=== PATIENT | female | born 1950 | race Caucasian/White ===

== ENCOUNTER 2018-01-15 04:14 | Inpatient (IN) | payer MEDICARE ==
[2018-01-15] MEDS ORDERED: Ondansetron 4 MG/2 ML SDV IVPUSH ONE (04:25)
[2018-01-15] MEDS ORDERED: Morphine 2 MG/ML Syringe IVPUSH ONE ×4 (04:25→07:01)
--- NOTE | 2018-01-15 04:26 | EDM.PDOC ---
ED HPI GENERAL MEDICAL PROBLEM - General Chief Complaint: Lower Extremity Injury/Pain Stated Complaint: FELL AT HOME Time Seen by Provider: 01/15/18 04:24 - History of Present Illness INITIAL COMMENTS - FREE TEXT/NARRATIVE: HISTORY AND PHYSICAL: History of present illness: Patient 67-year-old female presents status post fall with acute left hip injury she denies any other trauma or concern she is brought by paramedics. Review of systems: As per history of present illness and below otherwise all systems reviewed and negative. Past medical history: As per history of present illness and as reviewed below otherwise noncontributory. Surgical history: As per history of present illness and as reviewed below otherwise noncontributory. Social history: No reported history of drug or alcohol abuse. Family history: As per history of present illness and as reviewed below otherwise noncontributory. Physical exam: HEENT: Atraumatic, normocephalic, pupils reactive, negative for conjunctival pallor or scleral icterus, mucous membranes moist, throat clear, neck supple, nontender, trachea midline. Lungs: Clear to auscultation, breath sounds equal bilaterally, chest nontender. Heart: S1S2, regular, negative for clicks, rubs, or JVD. Abdomen: Soft, nondistended, nontender. Negative for masses or hepatosplenomegaly. Negative for costovertebral tenderness. Pelvis: Stable nontender. Tenderness to palpation of her left hip no gross deformity noted Genitourinary: Deferred. Rectal: Deferred. Extremities: Atraumatic, negative for cords or calf pain. Neurovascular unremarkable. Neuro: Awake, alert, oriented. Cranial nerves II through XII unremarkable. Cerebellum unremarkable. Motor and sensory unremarkable throughout. Exam nonfocal. Diagnostics: CBC CMP troponin PT/INR chest x-ray EKG pelvis and left hip Therapeutics: IV monitor morphine sulfate 2 mg IV Zofran 4 mg IV Impression: #1 observation status post fall #2 acute left hip injury Definitive disposition and diagnosis as appropriate pending reevaluation and review of above. - Related Data Allergies Allergy/AdvReac Type Severity Reaction Status Date / Time acetaminophen [From Vicodin] Allergy Other Verified 01/15/18 04:26 hydrocodone [From Vicodin] Allergy Other Verified 01/15/18 04:26 propoxyphene [From Darvon] Allergy Other Verified 01/15/18 04:26 Review of Systems - Review of Systems Review Of Systems: ROS reveals no pertinent complaints other than HPI. ED EXAM, GENERAL - Physical Exam Exam: See Below (See dictation) Course - Vital Signs Last Recorded V/S: Last Vital Signs Temp 36.2 C 01/15/18 04:18 Pulse 83 01/15/18 04:18 Resp 24 H 01/15/18 04:18 BP 131/60 01/15/18 04:18 Pulse Ox 92 L 01/15/18 04:18 - Orders/Labs/Meds Orders: Active Orders 24 hr Category Date Time Status Cardiac Monitoring [RC] . DIRECTED Care 01/15/18 04:22 Active EKG Documentation Completion [RC] STAT Care 01/15/18 04:22 Active Chest 1V Frontal [CR] Stat Exams 01/15/18 04:22 Taken Hip Min 2V or 3V w Pelvis Lt [CR] Stat Exams 01/15/18 04:24 Taken Labs: Laboratory Tests 01/15/18 01/15/18 01/15/18 Range/Units 04:24 04:24 04:24 WBC 12.52 H (4.0-11.0) K/uL RBC 4.55 (4.30-5.90) M/uL Hgb 14.6 (12.0-16.0) g/dL Hct 43.4 (36.0-46.0) % MCV 95.4 (80.0-98.0) fL MCH 32.1 H (27.0-32.0) pg MCHC 33.6 (31.0-37.0) g/dL RDW Std Deviation 53.9 (28.0-62.0) fl RDW Coeff of Mallory 16 H (11.0-15.0) % Plt Count 326 (150-400) K/uL MPV 10.40 (7.40-12.00) fL Neut % (Auto) 78.5 (48.0-80.0) % Lymph % (Auto) 14.9 L (16.0-40.0) % [place] % (Auto) 5.8 (0.0-15.0) % Eos % (Auto) 0.3 (0.0-7.0) % Baso % (Auto) 0.5 (0.0-1.5) % Neut # (Auto) 9.8 H (1.4-5.7) K/uL Lymph # (Auto) 1.9 (0.6-2.4) K/uL [place] # (Auto) 0.7 (0.0-0.8) K/uL Eos # (Auto) 0.0 (0.0-0.7) K/uL Baso # (Auto) 0.1 (0.0-0.1) K/uL Nucleated RBC % 0.0 /100WBC Nucleated RBCs # 0 K/uL INR 0.96 Sodium 139 (136-145) mmol/L Potassium 4.1 (3.5-5.1) mmol/L Chloride 101 (98-107) mmol/L Carbon Dioxide 24.7 (21.0-32.0) mmol/L BUN 14 (7.0-18.0) mg/dL Creatinine 0.7 (0.6-1.0) mg/dL Est Cr Clr Drug Dosing 60.46 mL/min Estimated GFR (MDRD) > 60.0 ml/min Glucose 101 (74-106) mg/dL Calcium 8.1 L (8.5-10.1) mg/dL Total Bilirubin 0.4 (0.2-1.0) mg/dL AST 20 (15-37) IU/L ALT 22 (14-63) IU/L Alkaline Phosphatase 78 (46-116) U/L CK-MB (CK-2) 1.0 (0-3.6) ng/mL Troponin I < 0.050 (0.000-0.056) ng/mL Total Protein 7.1 (6.4-8.2) g/dL Albumin 3.5 (3.4-5.0) g/dL Globulin 3.6 H (2.0-3.5) g/dL Albumin/Globulin Ratio 1.0 L (1.3-2.8) Meds: Medications Discontinued Medications Generic Name Dose Route Start Last Admin Trade Name Carrollq PRN Reason Stop Dose Admin Morphine Sulfate 2 mg 01/15/18 04:25 01/15/18 04:35 Morphine IVPUSH 01/15/18 04:26 2 mg ONETIME ONE Administration Morphine Sulfate 2 mg 01/15/18 05:17 01/15/18 05:27 Morphine IVPUSH 01/15/18 05:18 2 mg ONETIME ONE Administration Morphine Sulfate 2 mg 01/15/18 06:23 01/15/18 06:28 Morphine IVPUSH 01/15/18 06:24 2 mg ONETIME ONE Administration Morphine Sulfate 2 mg 01/15/18 07:01 01/15/18 07:31 Morphine IVPUSH 01/15/18 07:02 2 mg ONETIME ONE Administration Ondansetron HCl 4 mg 01/15/18 04:25 01/15/18 04:36 Zofran IVPUSH 01/15/18 04:26 4 mg ONETIME ONE Administration Departure - Departure Time of Disposition: 07:41 Disposition: Admitted As Inpatient 68 Condition: Good Clinical Impression: Hip fracture - Discharge Information Forms: ED Department Discharge - My Orders Last 24 Hours: My Active Orders 01/15/18 04:22 Cardiac Monitoring [RC] . DIRECTED EKG Documentation Completion [RC] STAT Chest 1V Frontal [CR] Stat 01/15/18 04:24 Hip Min 2V or 3V w Pelvis Lt [CR] Stat - Assessment/Plan Last 24 Hours: My Active Orders 01/15/18 04:22 Cardiac Monitoring [RC] . DIRECTED EKG Documentation Completion [RC] STAT Chest 1V Frontal [CR] Stat 01/15/18 04:24 Hip Min 2V or 3V w Pelvis Lt [CR] Stat
[2018-01-15 05:21] LABS: CHLORIDE,CL 101 mmol/L (98-107); SODIUM,NA 139 mmol/L (136-145)
[2018-01-15] MEDS ORDERED: Sodium Chloride 0.9% 10 ML Syringe FLUSH PRN (08:10)
[2018-01-15] MEDS ORDERED: Sodium Chloride 0.9% 2.5 ML Syringe FLUSH PRN (08:10)
[2018-01-15] MEDS ORDERED: Lactated Ringers 1,000 ML IV SCH (08:15)
--- NOTE | 2018-01-15 10:08 | PCM.CONS ---
H&P History of Present Illness - General Date of Service: 01/15/18 Admit Problem/Dx: Admission Diagnosis/Problem Admission Diagnosis/Problem Hip fracture, intertrochanteric Source of Information: Patient, Provider History Limitations: Reports: No Limitations - History of Present Illness Initial Comments - Free Text/Narative: 67 y/o female who fell earlier this morning, injuring left hip. C/o immediate pain and inability to weight bear. Denies LOC or other injuries. No previous h/ o left hip pain. Evaluated in ER where XR show displaced left femoral neck fracture. Admitted for evaluation. Pain controlled with morphine. Denies distal paralysis, paresthesias. Onset of Symptoms: Reports: Today Location: Reports: Lower Extremity, Left Severity: Moderate Improves with: Reports: Rest Worsens with: Reports: Movement Context: Reports: Trauma Associated Symptoms: Reports: No Other Symptoms Left Leg Pain Score (Numeric/FACES): 7 - Related Data Allergies/Adverse Reactions: Allergies Allergy/AdvReac Type Severity Reaction Status Date / Time acetaminophen [From Vicodin] Allergy Other Verified 01/15/18 04:26 hydrocodone [From Vicodin] Allergy Other Verified 01/15/18 04:26 propoxyphene [From Darvon] Allergy Other Verified 01/15/18 04:26 Home Medications: Home Meds PARoxetine [Paxil] 20 mg PO DAILY 01/15/18 [History] Past Medical History HEENT History: Reports: None Cardiovascular History: Reports: None Respiratory History: Reports: None Gastrointestinal History: Reports: None Genitourinary History: Reports: None Musculoskeletal History: Reports: None Neurological History: Reports: None Psychiatric History: Reports: Addiction, Anxiety, Depression Endocrine/Metabolic History: Reports: Hypothyroidism Hematologic History: Reports: None Immunologic History: Reports: None Oncologic (Cancer) History: Reports: Ovarian Dermatologic History: Reports: None - Past Surgical History GI Surgical History: Reports: Other (See Below) (laparatomy) Female Surgical History: Reports: Hysterectomy, Salpingo-Oophorectomy Musculoskeletal Surgical History: Reports: ORIF (Right wrist) Social & Family History - Family History Family Medical History: Noncontributory - Tobacco Use Smoking Status *Q: Current Every Day Smoker Years of Tobacco use: 15 Packs/Tins Daily: 1 - Alcohol Use Alcohol Use History: Yes Days Per Week of Alcohol Use: 7 Number of Drinks Per Day: 5 Total Drinks Per Week: 35 H&P Review of Systems - Review of Systems: Review Of Systems: See Below General: Reports: No Symptoms HEENT: Reports: No Symptoms Pulmonary: Reports: No Symptoms Cardiovascular: Reports: No Symptoms Gastrointestinal: Reports: No Symptoms Genitourinary: Reports: No Symptoms Musculoskeletal: Reports: Joint Pain (left hip pain) Skin: Reports: No Symptoms Psychiatric: Reports: No Symptoms Neurological: Reports: No Symptoms Hematologic/Lymphatic: Reports: No Symptoms Immunologic: Reports: No Symptoms Exam - Exam Exam: See Below - Vital Signs Vital Signs: Last Vital Signs Temp 97.2 F 01/15/18 08:26 Pulse 74 01/15/18 08:26 Resp 17 01/15/18 08:26 BP 141/79 H 01/15/18 08:26 Pulse Ox 95 01/15/18 08:26 Weight: 58.967 kg - Exam General: Alert, Oriented, 4 HEENT: Conjunctiva Clear, Hearing Intact, Nares Patent Neck: Supple, Trachea Midline, 2 Lungs: Normal Respiratory Effort Cardiovascular: Regular Rate GI/Abdominal Exam: Soft Psychiatric: Alert, Normal Affect, Normal Mood Physical Exam Comments:: Exam of LLE shows it to be shortened and externally rotated. C/o extreme pain with movement. Skin intact. No TTP in knee or lower leg. AT/EHL/gastroc 5/5. Sensation intact. DP 2+. No calf TTP. - Patient Data Lab Results Last 24 hrs: Laboratory Results - last 24 hr 01/15/18 01/15/18 01/15/18 Range/Units 04:24 04:24 04:24 WBC 12.52 H (4.0-11.0) K/uL RBC 4.55 (4.30-5.90) M/uL Hgb 14.6 (12.0-16.0) g/dL Hct 43.4 (36.0-46.0) % MCV 95.4 (80.0-98.0) fL MCH 32.1 H (27.0-32.0) pg MCHC 33.6 (31.0-37.0) g/dL RDW Std Deviation 53.9 (28.0-62.0) fl RDW Coeff of Mallory 16 H (11.0-15.0) % Plt Count 326 (150-400) K/uL MPV 10.40 (7.40-12.00) fL Neut % (Auto) 78.5 (48.0-80.0) % Lymph % (Auto) 14.9 L (16.0-40.0) % [place] % (Auto) 5.8 (0.0-15.0) % Eos % (Auto) 0.3 (0.0-7.0) % Baso % (Auto) 0.5 (0.0-1.5) % Neut # (Auto) 9.8 H (1.4-5.7) K/uL Lymph # (Auto) 1.9 (0.6-2.4) K/uL [place] # (Auto) 0.7 (0.0-0.8) K/uL Eos # (Auto) 0.0 (0.0-0.7) K/uL Baso # (Auto) 0.1 (0.0-0.1) K/uL Nucleated RBC % 0.0 /100WBC Nucleated RBCs # 0 K/uL INR 0.96 Sodium 139 (136-145) mmol/L Potassium 4.1 (3.5-5.1) mmol/L Chloride 101 (98-107) mmol/L Carbon Dioxide 24.7 (21.0-32.0) mmol/L BUN 14 (7.0-18.0) mg/dL Creatinine 0.7 (0.6-1.0) mg/dL Est Cr Clr Drug Dosing 60.46 mL/min Estimated GFR (MDRD) > 60.0 ml/min Glucose 101 (74-106) mg/dL Calcium 8.1 L (8.5-10.1) mg/dL Total Bilirubin 0.4 (0.2-1.0) mg/dL AST 20 (15-37) IU/L ALT 22 (14-63) IU/L Alkaline Phosphatase 78 (46-116) U/L CK-MB (CK-2) 1.0 (0-3.6) ng/mL Troponin I < 0.050 (0.000-0.056) ng/mL Total Protein 7.1 (6.4-8.2) g/dL Albumin 3.5 (3.4-5.0) g/dL Globulin 3.6 H (2.0-3.5) g/dL Albumin/Globulin Ratio 1.0 L (1.3-2.8) Result Diagrams: 01/15/18 04:24 01/15/18 04:24 Consult PN Assessment/Plan (1) Hip fracture SNOMED Code(s): 969841723 Code(s): S72.009A - FRACTURE OF UNSP PART OF NECK OF UNSP FEMUR, INIT Current Visit: Yes Qualifiers: Encounter type: initial encounter Fracture type: closed Laterality: left Qualified Code(s): S72.002A - Fracture of unspecified part of neck of left femur, initial encounter for closed fracture Problem List Initiated/Reviewed/Updated: Yes My Orders Last 24 Hours: My Active Orders 01/15/18 08:08 Pelvis 1V or 2V [CR] Stat 01/15/18 08:10 Sodium Chloride 0.9% [Saline Flush] 10 ml FLUSH ASDIRECTED PRN Sodium Chloride 0.9% [Saline Flush] 2.5 ml FLUSH ASDIRECTED PRN Antiembolic Hose [OM.PC] Routine Obtain Home Medication List [OM.PC] Routine Peripheral IV Insertion Adult [OM.PC] Urgent Sequential Compression Device [OM.PC] Routine 01/15/18 08:12 Bedrest [RC] ASDIRECTED Urinary Catheter Assessment [RC] ASDIRECTED 01/15/18 08:15 Schmidt Catheter Insertion [Insert Urinary Catheter] [OM.PC] Q24H Lactated Ringers [Ringers, Lactated] 1,000 ml IV ASDIRECTED 01/15/18 09:31 TYPE AND SCREEN [BBK] Routine 01/15/18 12:00 ceFAZolin [Ancef] 1 gm Premix Bag 1 bag IV Q8H 01/15/18 Lunch Nothing per Oral Now Diet [DIET] Plan: Diagnosis discussed with patient. Discussed conservative and surgical treatment options. Recommend patient undergo L hip hemiarthroplasty. Procedure and postoperative course discussed. Risks of procedure include, but are not limited to, infection, n/v injury, dislocation, continued pain, need for revision surgery, blood clots, and anesthetic complications. Patient seems to understand and wishes to proceed. Will plan to do later today pending medical evaluation. Patient has no h/o blood clots, but states brother has h/o blood clots. Will need to be on DVT prophylaxis postoperatively.
--- NOTE | 2018-01-15 10:13 | PCM.PREANE ---
Preanesthetic Assessment - Anesthesia/Transfusion/Family Hx Anesthesia History: Prior Anesthesia Reaction (Pt states her last surgery in Sep 2017 was cancelled mid procedure due to hypoxia) Family History of Anesthesia Reaction: No Transfusion History: No Prior Transfusion(s) - Review of Systems General: No Symptoms Pulmonary: No Symptoms Cardiovascular: No Symptoms Gastrointestinal: No Symptoms Neurological: No Symptoms Other: Reports: None - Physical Assessment O2 Sat by Pulse Oximetry: 95 Respiratory Rate: 17 Vital Signs: Last Vital Signs Temp 97.2 F 01/15/18 08:26 Pulse 74 01/15/18 08:26 Resp 17 01/15/18 08:26 BP 141/79 H 01/15/18 08:26 Pulse Ox 95 01/15/18 08:26 Height: 5 ft 1 in Weight: 58.967 kg ASA Class: 3E Mental Status: Alert & Oriented x3 Airway Class: Mallampati = 2 Dentition: Reports: Normal Dentition Thyro-Mental Finger Breadths: 3 Mouth Opening Finger Breadths: 3 ROM/Head Extension: Full Lungs: Clear to Auscultation, Normal Respiratory Effort Cardiovascular: Regular Rate, Regular Rhythm - Lab Values: Laboratory Last Values WBC 12.52 K/uL (4.0-11.0) H 01/15/18 04:24 RBC 4.55 M/uL (4.30-5.90) 01/15/18 04:24 Hgb 14.6 g/dL (12.0-16.0) 01/15/18 04:24 Hct 43.4 % (36.0-46.0) 01/15/18 04:24 MCV 95.4 fL (80.0-98.0) 01/15/18 04:24 MCH 32.1 pg (27.0-32.0) H 01/15/18 04:24 MCHC 33.6 g/dL (31.0-37.0) 01/15/18 04:24 RDW Std Deviation 53.9 fl (28.0-62.0) 01/15/18 04:24 RDW Coeff of Mallory 16 % (11.0-15.0) H 01/15/18 04:24 Plt Count 326 K/uL (150-400) 01/15/18 04:24 MPV 10.40 fL (7.40-12.00) 01/15/18 04:24 Neut % (Auto) 78.5 % (48.0-80.0) 01/15/18 04:24 Lymph % (Auto) 14.9 % (16.0-40.0) L 01/15/18 04:24 [place] % (Auto) 5.8 % (0.0-15.0) 01/15/18 04:24 Eos % (Auto) 0.3 % (0.0-7.0) 01/15/18 04:24 Baso % (Auto) 0.5 % (0.0-1.5) 01/15/18 04:24 Neut # (Auto) 9.8 K/uL (1.4-5.7) H 01/15/18 04:24 Lymph # (Auto) 1.9 K/uL (0.6-2.4) 01/15/18 04:24 [place] # (Auto) 0.7 K/uL (0.0-0.8) 01/15/18 04:24 Eos # (Auto) 0.0 K/uL (0.0-0.7) 01/15/18 04:24 Baso # (Auto) 0.1 K/uL (0.0-0.1) 01/15/18 04:24 Nucleated RBC % 0.0 /100WBC 01/15/18 04:24 Nucleated RBCs # 0 K/uL 01/15/18 04:24 INR 0.96 01/15/18 04:24 Sodium 139 mmol/L (136-145) 01/15/18 04:24 Potassium 4.1 mmol/L (3.5-5.1) 01/15/18 04:24 Chloride 101 mmol/L (98-107) 01/15/18 04:24 Carbon Dioxide 24.7 mmol/L (21.0-32.0) 01/15/18 04:24 BUN 14 mg/dL (7.0-18.0) 01/15/18 04:24 Creatinine 0.7 mg/dL (0.6-1.0) 01/15/18 04:24 Est Cr Clr Drug Dosing 60.46 mL/min 01/15/18 04:24 Estimated GFR (MDRD) > 60.0 ml/min 01/15/18 04:24 Glucose 101 mg/dL (74-106) 01/15/18 04:24 Calcium 8.1 mg/dL (8.5-10.1) L 01/15/18 04:24 Total Bilirubin 0.4 mg/dL (0.2-1.0) 01/15/18 04:24 AST 20 IU/L (15-37) 01/15/18 04:24 ALT 22 IU/L (14-63) 01/15/18 04:24 Alkaline Phosphatase 78 U/L (46-116) 01/15/18 04:24 CK-MB (CK-2) 1.0 ng/mL (0-3.6) 01/15/18 04:24 Troponin I < 0.050 ng/mL (0.000-0.056) 01/15/18 04:24 Total Protein 7.1 g/dL (6.4-8.2) 01/15/18 04:24 Albumin 3.5 g/dL (3.4-5.0) 01/15/18 04:24 Globulin 3.6 g/dL (2.0-3.5) H 01/15/18 04:24 Albumin/Globulin Ratio 1.0 (1.3-2.8) L 01/15/18 04:24 - Allergies Allergies/Adverse Reactions: Allergies Allergy/AdvReac Type Severity Reaction Status Date / Time acetaminophen [From Vicodin] Allergy Other Verified 01/15/18 04:26 hydrocodone [From Vicodin] Allergy Other Verified 01/15/18 04:26 propoxyphene [From Darvon] Allergy Other Verified 01/15/18 04:26 - Anesthesia Plan Free Text/Narrative:: 01/15/18 - EKG - SR 01/15/18 - CXR - Cardiomegaly, Ovoid right retrocardiac density BNP Echo ordered, Dr Raymond to review. I reviewed the Echo with Dr Raymond. He felt by visual estimated EF was 50% with no significant valvular disease noted. I also reviewed the CXR with Dr Raymond and Dr Priscilla Pina. They both felt CT of chest with contrast would be beneficial to evaluate the retrocardiac density. I spoke with Pam ANDERSON who agreed and ordered the study. Following the CT of chest with contrast I spoke with Dr Pina who said he does not appreciate any masses on the scans. He believes the density may be from the enlarged Rt atrium, enlarged pulmonary blood vessels were also noted. I discussed all of the findings with the patient who expresses understanding. GETA was explained as well as the risks and benefits at this time. Pt expresses understanding and wishes to proceed at this time. - Acknowledgements Anesthesia Type Planned: General Anesthesia Pt an Appropriate Candidate for the Planned Anesthesia: Yes Alternatives and Risks of Anesthesia Discussed w Pt/Guardian: Yes Pt/Guardian Understands and Agrees with Anesthesia Plan: Yes PreAnesthesia Questionnaire HEENT History: Reports: None Cardiovascular History: Reports: None Respiratory History: Reports: COPD Gastrointestinal History: Reports: None Genitourinary History: Reports: None Musculoskeletal History: Reports: None Neurological History: Reports: None Psychiatric History: Reports: None Endocrine/Metabolic History: Reports: Hypothyroidism Hematologic History: Reports: None Immunologic History: Reports: None Oncologic (Cancer) History: Reports: None Dermatologic History: Reports: None - Infectious Disease History Infectious Disease History: Reports: None - Past Surgical History Musculoskeletal Surgical History: Reports: ORIF (Rt FA) Other Surgical History Comment: Laparotomy - History Comment History Comment: Pt has history of alcoholism (Current) and being homeless in the past. On exam the patient has noticable shakes from alcohol withdraw. - SUBSTANCE USE Smoking Status *Q: Current Every Day Smoker Days Per Week of Alcohol Use: 7 Number of Drinks Per Day: 5 Total Drinks Per Week: 35 - HOME MEDS Home Medications: Home Meds PARoxetine [Paxil] 20 mg PO DAILY 01/15/18 [History] - CURRENT (IN HOUSE) MEDS Current Meds: Current Medications Cefazolin Sodium/Dextrose 1 gm (/ Premix) 50 mls @ 100 mls/hr IV Q8H ONE Stop: 01/15/18 12:29 Lactated Ringer's (Ringers, Lactated) 1,000 mls @ 125 mls/hr IV ASDIRECTED TIMOTHY Last Admin: 01/15/18 09:15 Dose: 125 mls/hr Morphine Sulfate (Morphine) 2 mg IVPUSH Q2H PRN PRN Reason: pain Sodium Chloride (Saline Flush) 10 ml FLUSH ASDIRECTED PRN PRN Reason: Keep Vein Open Sodium Chloride (Saline Flush) 2.5 ml FLUSH ASDIRECTED PRN PRN Reason: Keep Vein Open Discontinued Medications Morphine Sulfate (Morphine) 2 mg IVPUSH ONETIME ONE Stop: 01/15/18 04:26 Last Admin: 01/15/18 04:35 Dose: 2 mg Morphine Sulfate (Morphine) 2 mg IVPUSH ONETIME ONE Stop: 01/15/18 05:18 Last Admin: 01/15/18 05:27 Dose: 2 mg Morphine Sulfate (Morphine) 2 mg IVPUSH ONETIME ONE Stop: 01/15/18 06:24 Last Admin: 01/15/18 06:28 Dose: 2 mg Morphine Sulfate (Morphine) 2 mg IVPUSH ONETIME ONE Stop: 01/15/18 07:02 Last Admin: 01/15/18 07:31 Dose: 2 mg Ondansetron HCl (Zofran) 4 mg IVPUSH ONETIME ONE Stop: 01/15/18 04:26 Last Admin: 01/15/18 04:36 Dose: 4 mg
--- NOTE | 2018-01-15 10:26 | PCM.HP ---
H&P History of Present Illness - General Date of Service: 01/15/18 Admit Problem/Dx: Admission Diagnosis/Problem Admission Diagnosis/Problem Hip fracture, intertrochanteric Source of Information: Patient History Limitations: Reports: No Limitations - History of Present Illness Initial Comments - Free Text/Narative: This 67 year old female with pmh of anxiety/depression and hypothyroidism, tobacco abuse and alcohol abuse presented to the ED after sustaining a fall last evening. She reports she was going doing the stairs and slipped on a stair with approximately 3-4 stairs left, landing on her butt and had instant pain to her L hip. She denies hitting her head or LOC. She denies being dizzy or lightheaded prior to falling. SHe reports she laid on the floor for maybe an hour than slowly crawled to the phone in the kitchen to call EMS. She reports feeling otherwise healthy up until falling. NO fevers, chest pain palpitations or shortness of breath. She does drink daily 3-5 drinks daily of wine and smokes 1 ppd for many years. She denies heart disease or HTN, no DM or COPD. Her last drink of alcohol was last evening around 8 pm. She reports she does have tremors when she wakes up daily and goes away when she takes her Paxil. Denies seizures. In the ED slightly leukocytosis noted, 12,520. BMP WNL. VS stable with BP 130- 140/60-70s. 95% on RA and HR 70-90s. L hip xray revealed L femoral neck fracture. CXR obtained as well which revealed cardiomegaly with right retrocardiac density. She again denies history of cardiac health issues, but reports having a surgery in September where she reports they had to cancel due to dropping oxygen saturations. Orthopedics consulted for L femoral neck fracture. Patient admitted to hospitalist team. She reports she is here in [place], clearing out her father's house. He recently . She and her brothers do not live here. She lives in the [place] area and is homeless. She ultimately plans to return to [place] when she is able and the house is sold. Left Leg Pain Score (Numeric/FACES): 7 - Related Data Allergies/Adverse Reactions: Allergies Allergy/AdvReac Type Severity Reaction Status Date / Time acetaminophen [From Vicodin] Allergy Other Verified 01/15/18 04:26 hydrocodone [From Vicodin] Allergy Other Verified 01/15/18 04:26 propoxyphene [From Darvon] Allergy Other Verified 01/15/18 04:26 Home Medications: Home Meds PARoxetine [Paxil] 20 mg PO DAILY 01/15/18 [History] Past Medical History HEENT History: Reports: None Cardiovascular History: Reports: None. Denies: Afib, Blood Clots/VTE/DVT, CAD, High Cholesterol, Hypertension, AR Respiratory History: Reports: None. Denies: Asthma, COPD, PE Gastrointestinal History: Reports: None. Denies: GERD, GI Bleed Genitourinary History: Reports: None. Denies: Chronic Renal Insuffiency Musculoskeletal History: Reports: None Neurological History: Reports: None. Denies: CVA, TIA Psychiatric History: Reports: Addiction, Anxiety, Depression Endocrine/Metabolic History: Reports: Hypothyroidism. Denies: Diabetes, Type II Hematologic History: Reports: None. Denies: Anesthesia Reaction Immunologic History: Reports: None Oncologic (Cancer) History: Reports: None, Cervix (and endometrial) Dermatologic History: Reports: None - Infectious Disease History Infectious Disease History: Reports: None - Past Surgical History Female Surgical History: Reports: Hysterectomy, Salpingo-Oophorectomy Musculoskeletal Surgical History: Reports: ORIF (R wrist) Other Surgical History Comment: Laparotomy Social & Family History - Family History Family Medical History: Noncontributory Cardiac: Reports: Other (See Below) (Son has severe valvular disease and needs heart transplant, not sure exact diagnoses reports he is terminal) Respiratory: Reports: PE (brother had PE, due to Ca.) - Tobacco Use Smoking Status *Q: Current Every Day Smoker Years of Tobacco use: 15 Packs/Tins Daily: 1 Smoking Cessation Information Provided To Patient: Yes - Alcohol Use Alcohol Use History: Yes Days Per Week of Alcohol Use: 7 Number of Drinks Per Day: 5 Total Drinks Per Week: 35 Alcohol Use Frequency: Daily - Recreational Drug Use Recreational Drug Use: No Drug Use in Last 12 Months: No - Living Situation & Occupation Living situation: Reports: Single Occupation: Unemployed Social History Comment: Homeless, currently staying at her father's house. H&P Review of Systems - Review of Systems: Review Of Systems: See Below General: Reports: No Symptoms. Denies: Fever, Chills, Malaise, Weakness, Fatigue HEENT: Reports: No Symptoms. Denies: Headaches, Sinus Congestion, Vertigo, Visual Changes Pulmonary: Reports: No Symptoms. Denies: Shortness of Breath, Wheezing, Cough, Sputum Cardiovascular: Reports: No Symptoms. Denies: Chest Pain, Palpitations, Edema, Lightheadedness, Syncope Gastrointestinal: Reports: No Symptoms. Denies: Abdominal Pain, Black Stool, Bloody Stool, Nausea, Vomiting Genitourinary: Reports: No Symptoms. Denies: Dysuria, Frequency, Burning Musculoskeletal: Reports: Joint Pain (L hip pain and muscle spasms) Skin: Reports: No Symptoms. Denies: Rash, Wound Psychiatric: Reports: No Symptoms. Denies: Confusion Neurological: Reports: Tremors (when waking up in am and then they go away) Hematologic/Lymphatic: Reports: No Symptoms Immunologic: Reports: No Symptoms Exam - Exam Exam: See Below - Vital Signs Vital Signs: Last Vital Signs Temp 97.2 F 01/15/18 08:26 Pulse 74 01/15/18 08:26 Resp 17 01/15/18 10:19 BP 141/79 H 01/15/18 08:26 Pulse Ox 95 01/15/18 10:19 Weight: 58.967 kg - Exam Quality Assessment: Supplemental Oxygen, DVT Prophylaxis (SCDs) General: Alert, Oriented, Cooperative, Mild Distress HEENT: Conjunctiva Clear, Mucosa Moist & Ages, Normal Nasal Septum, Posterior Pharynx Clear Neck: Supple, Trachea Midline, +2 Carotid Pulse wo Bruit. No: Lymphadenopathy, JVD Lungs: Normal Respiratory Effort, Rhonchi (cleras with cough) Cardiovascular: Regular Rate, Regular Rhythm, Normal S1, Normal S2. No: Systolic Murmur GI/Abdominal Exam: Normal Bowel Sounds, Soft, Non-Tender, No Organomegaly, No Distention, No Abnormal Bruit, No Mass, Pelvis Stable Extremities: Normal Inspection, No Pedal Edema, Normal Capillary Refill. No: Normal Range of Motion Skin: Warm, Dry, Other (bruising noted to bilateral forearms and elbows. appear to be fairly recent Denies recent history of falling besides last night.) Neurological: Cranial Nerves Intact Neuro Extensive - Mental Status: Alert, Oriented x3, Normal Mood/Affect Neuro Extensive - Motor, Sensory, Reflexes: CN II-XII Intact - Patient Data Lab Results Last 24 hrs: Laboratory Results - last 24 hr 01/15/18 01/15/18 01/15/18 Range/Units 04:24 04:24 04:24 WBC 12.52 H (4.0-11.0) K/uL RBC 4.55 (4.30-5.90) M/uL Hgb 14.6 (12.0-16.0) g/dL Hct 43.4 (36.0-46.0) % MCV 95.4 (80.0-98.0) fL MCH 32.1 H (27.0-32.0) pg MCHC 33.6 (31.0-37.0) g/dL RDW Std Deviation 53.9 (28.0-62.0) fl RDW Coeff of Mallory 16 H (11.0-15.0) % Plt Count 326 (150-400) K/uL MPV 10.40 (7.40-12.00) fL Neut % (Auto) 78.5 (48.0-80.0) % Lymph % (Auto) 14.9 L (16.0-40.0) % Bucks % (Auto) 5.8 (0.0-15.0) % Eos % (Auto) 0.3 (0.0-7.0) % Baso % (Auto) 0.5 (0.0-1.5) % Neut # (Auto) 9.8 H (1.4-5.7) K/uL Lymph # (Auto) 1.9 (0.6-2.4) K/uL Bucks # (Auto) 0.7 (0.0-0.8) K/uL Eos # (Auto) 0.0 (0.0-0.7) K/uL Baso # (Auto) 0.1 (0.0-0.1) K/uL Nucleated RBC % 0.0 /100WBC Nucleated RBCs # 0 K/uL INR 0.96 Sodium 139 (136-145) mmol/L Potassium 4.1 (3.5-5.1) mmol/L Chloride 101 (98-107) mmol/L Carbon Dioxide 24.7 (21.0-32.0) mmol/L BUN 14 (7.0-18.0) mg/dL Creatinine 0.7 (0.6-1.0) mg/dL Est Cr Clr Drug Dosing 60.46 mL/min Estimated GFR (MDRD) > 60.0 ml/min Glucose 101 (74-106) mg/dL Calcium 8.1 L (8.5-10.1) mg/dL Total Bilirubin 0.4 (0.2-1.0) mg/dL AST 20 (15-37) IU/L ALT 22 (14-63) IU/L Alkaline Phosphatase 78 (46-116) U/L CK-MB (CK-2) 1.0 (0-3.6) ng/mL Troponin I < 0.050 (0.000-0.056) ng/mL Total Protein 7.1 (6.4-8.2) g/dL Albumin 3.5 (3.4-5.0) g/dL Globulin 3.6 H (2.0-3.5) g/dL Albumin/Globulin Ratio 1.0 L (1.3-2.8) Result Diagrams: 01/15/18 04:24 01/15/18 04:24 EKG INTERPRETATION EKG Date: 01/15/18 Rhythm: NSR P-Wave: Present QRS: Normal ST-T: Normal QT: Normal Comparison: NA - No Prior EKG *Q Meaningful Use (ADM) - VTE Risk Assess *Q Each Risk Factor Represents 1 Point: Abnormal Pulmonary Function (COPD) Total Score 1 Point Risk Factors: 1 Each Risk Factor Represents 2 Points: Age 60 - 74 Years Total Score 2 Point Risk Factors: 2 Each Risk Factor Represents 3 Points: None Total Score 3 Point Risk Factors: 0 Each Risk Factor Represents 5 Points: Hip, Pelvis or Leg Fracture, Less than 1 month Total Score 5 Point Risk Factors: 5 Venous Thromboembolism Risk Factor Score *Q: 8 - Problem List (1) Femoral neck fracture SNOMED Code(s): 3980436 ICD Code: S72.009A - FRACTURE OF UNSP PART OF NECK OF UNSP FEMUR, INIT Status: Acute Current Visit: Yes Qualifiers: Encounter type: initial encounter Fracture type: closed Laterality: left Qualified Code(s): S72.002A - Fracture of unspecified part of neck of left femur, initial encounter for closed fracture (2) Cardiomegaly SNOMED Code(s): 3902338 ICD Code: I51.7 - CARDIOMEGALY Status: Acute Current Visit: Yes (3) Tobacco abuse SNOMED Code(s): 880144933 ICD Code: Z72.0 - TOBACCO USE Status: Chronic Current Visit: Yes (4) Alcohol abuse SNOMED Code(s): 22343958 ICD Code: F10.10 - ALCOHOL ABUSE, UNCOMPLICATED Status: Chronic Current Visit: Yes (5) Depression SNOMED Code(s): 05381849 ICD Code: F32.9 - MAJOR DEPRESSIVE DISORDER, SINGLE EPISODE, UNSPECIFIED Status: Chronic Current Visit: Yes (6) Anxiety SNOMED Code(s): 78640699 ICD Code: F41.9 - ANXIETY DISORDER, UNSPECIFIED Status: Chronic Current Visit: Yes (7) Hypothyroid SNOMED Code(s): 62818126 ICD Code: E03.9 - HYPOTHYROIDISM, UNSPECIFIED Status: Chronic Current Visit: Yes (8) Homeless single person SNOMED Code(s): 791504471 ICD Code: Z59.0 - HOMELESSNESS Status: Chronic Current Visit: Yes Problem List Initiated/Reviewed/Updated: Yes Orders Last 24hrs: Active Orders 24 hr Category Date Time Status Patient Status [ADT] Stat ADT 01/15/18 07:42 Active Bedrest [RC] ASDIRECTED Care 01/15/18 08:12 Active Cardiac Monitoring [RC] . DIRECTED Care 01/15/18 04:22 Active EKG Documentation Completion [RC] STAT Care 01/15/18 04:22 Active Schmidt Catheter Insertion [Insert Urinary Catheter] [OM. Care 01/15/18 08:15 Ordered PC] Q24H Urinary Catheter Assessment [RC] ASDIRECTED Care 01/15/18 08:12 Active Nothing per Oral Now Diet [DIET] Diet 01/15/18 Lunch Active Chest 1V Frontal [CR] Stat Exams 01/15/18 04:22 Taken Hip Min 2V or 3V w Pelvis Lt [CR] Stat Exams 01/15/18 04:24 Taken Pelvis 1V or 2V [CR] Stat Exams 01/15/18 08:08 Taken TYPE AND SCREEN [BBK] Routine Lab 01/15/18 09:31 Received Lactated Ringers [Ringers, Lactated] 1,000 ml Med 01/15/18 08:15 Active IV ASDIRECTED Morphine Med 01/15/18 09:44 Active 2 mg IVPUSH Q2H PRN Sodium Chloride 0.9% [Saline Flush] Med 01/15/18 08:10 Active 10 ml FLUSH ASDIRECTED PRN Sodium Chloride 0.9% [Saline Flush] Med 01/15/18 08:10 Active 2.5 ml FLUSH ASDIRECTED PRN ceFAZolin [Ancef] 1 gm Med 01/15/18 12:00 Active Premix Bag 1 bag IV Q8H Antiembolic Hose [OM.PC] Routine Oth 01/15/18 08:10 Ordered Obtain Home Medication List [OM.PC] Routine Oth 01/15/18 08:10 Ordered Peripheral IV Insertion Adult [OM.PC] Urgent Oth 01/15/18 08:10 Ordered Sequential Compression Device [OM.PC] Routine Oth 01/15/18 08:10 Ordered Medication Orders Cefazolin Sodium/Dextrose 1 gm (/ Premix) 50 mls @ 100 mls/hr IV Q8H ONE Stop: 01/15/18 12:29 Lactated Ringer's (Ringers, Lactated) 1,000 mls @ 125 mls/hr IV ASDIRECTED TIMOTHY Last Admin: 01/15/18 09:15 Dose: 125 mls/hr Morphine Sulfate (Morphine) 2 mg IVPUSH Q2H PRN PRN Reason: pain Sodium Chloride (Saline Flush) 10 ml FLUSH ASDIRECTED PRN PRN Reason: Keep Vein Open Sodium Chloride (Saline Flush) 2.5 ml FLUSH ASDIRECTED PRN PRN Reason: Keep Vein Open Assessment/Plan Comment:: This 67 year old female admitted with L femoral neck fracture 1. Femoral neck fracture: Dr Cotto, Orthopedics consulted. Plans of Hemiarthoplasty this afternoon. 2. Cardiomegaly: Denies hx of cardiac issues. Anesthesia consulted Dr Mackey. ECHO ordered. Monitor fluid status closely 3. Alcohol abuse: Will place on CIWAA protocol with Ativan protocol. Supplement with Thiamine and Folic Acid daily. 4. Depression/Anxiety: Continue Paxil. VTE prophylaxis: Will recommend post-operatively.
[2018-01-15] MEDS: Morphine 2 MG/ML Syringe IVPUSH PRN ×2 (11:00→13:05)
[2018-01-15] MEDS ORDERED: Ondansetron 4 MG/2 ML SDV IVPUSH PRN (11:44)
[2018-01-15] MEDS ORDERED: ceFAZolin 1 GM in Premix Bag 1 BAG IV ONE (12:00)
[2018-01-15] MEDS: Lactated Ringers 1,000 ML IV SCH (12:30)
--- NOTE | 2018-01-15 13:35 | PCM.PRNOTE ---
- Free Text/Narrative Note: Prelim echo 01/15/2018 suboptimal study, LVEF grossly preserved, I did not appreciate significant valvular abnormalities. RV systolic function appeared to be preserved.
[2018-01-15] MEDS ORDERED: Iopamidol 755 MG/ML 500 ML Multipack Bottle IVPUSH STA (14:50)
[2018-01-15] MEDS ORDERED: Midazolam 1 MG/ML 2 ML SDV ONE (15:19)
[2018-01-15] MEDS ORDERED: Succinylcholine 200 MG/10 ML MDV ONE (15:19)
[2018-01-15] MEDS ORDERED: fentaNYL 250 MCG/5 ML SDV ONE (15:19)
[2018-01-15] MEDS ORDERED: Propofol 200 MG/20 ML SDV ONE (15:19)
[2018-01-15] MEDS ORDERED: Lidocaine 2% 5 ML SDV ONE (15:19)
[2018-01-15] MEDS ORDERED: Rocuronium 10 MG/ML 10 ML Syringe ONE (15:19)
[2018-01-15] MEDS ORDERED: Ondansetron 4 MG/2 ML SDV ONE (15:19)
--- NOTE | 2018-01-15 15:35 | PCM.OPNOTE ---
- General Post-Op/Procedure Note Date of Surgery/Procedure: 01/15/18 Operative Procedure(s): L hip hemiarthroplasty Post-Op Diagnosis: L displaced femoral neck fracture Anesthesia Technique: General ET Tube Primary Surgeon: Julita Cotto Stick Feeder: Karen Mitchell in mLs: 300 Condition: Stable Free Text/Narrative:: #[id number]
[2018-01-15] MEDS ORDERED: LORazepam 2 MG/ML SDV IVPUSH PRN (15:45)
--- NOTE | 2018-01-15 16:06 | CONS ---
DATE OF CONSULTATION: 01/15/2018 DATE OF : 1950 PRIMARY CARE PHYSICIAN: None PCP HISTORY OF PRESENT ILLNESS: This is a 67-year-old female with history of anxiety, depression, hypothyroidism, chronic smoking, alcoholic abuse. She does not live here in [place]. She lives in [place], [place], and homeless. She was here just for clearing the house for her dad who . However, she reports she was going upstairs and just trips on the stairs, and she was falling on her buttock and has instant pain in the left hip. Denied head trauma, loss of consciousness, or feeling dizzy. Denies chest pain or shortness of breath. She has not seen a doctor for a long time. She also denies history of hypertension, diabetes, COPD. The x-ray of left hip, which show left femoral neck fracture, and orthopedic surgeon was consulted. Plan to do urgent hip surgery due to the left hip fracture and the chest x-ray was obtained which showed possible cardiomegaly and also possible retrocardiac density, and that was the reason she was consulted to me as well as to review echo images. The echocardiogram was done already. SOCIAL HISTORY: She has a history of current smoking as well as she has current alcoholic abuse. No drug use. FAMILY HISTORY: Denies family history of hypertension or CAD. ALLERGIES: She is allergic to acetaminophen, hydrocodone, propoxyphene. PAST MEDICAL HISTORY: She denies history of atrial fibrillation, blood clot, DVT, CAD, high cholesterol, hypertension, diabetes, COPD. PAST SURGICAL HISTORY: She was supposed to have a surgery in last September; however, she driving her sadness, so she aborted, and detail was not available due to the records from outside hospital. PHYSICAL EXAMINATION: VITAL SIGNS: Initial blood pressure is 131/60, heart rate of 60 to 90, temperature is 36.2, O2 saturation 92% to 95% on room air. DIAGNOSTIC DATA: Echocardiogram is a suboptimal study. It showed preserved ejection fraction grossly. I did not appreciate any significant valvular abnormalities. EKG is pending. ASSESSMENT AND PLAN: This is a 67-year-old female with history of smoking, as well as hypothyroidism, and alcoholic abuse. She was seen in the hospital after the fall, sustaining the left hip fracture with a femoral fracture, and she is required to have an urgent surgery. She is possibly low to intermediate risk due to the risk factor of having smoking; however, due to in nature of the surgery is her urgent and the risks of waiting or completing the tests before the surgery is higher than going for the surgery and the surgery seems to be urgent. The risk from the surgery is still there and apparently echocardiogram grossly did not show any LV systolic dysfunction or significant valvular abnormalities. However, this study was suboptimal and also the CT of the chest is pending to evaluate the retrocardiac density. I would like to do an EKG stat to make sure there are no significant EKG abnormalities. GONZALEZ / LANA /[id number]
[2018-01-15] MEDS ORDERED: ePHEDrine 50 MG/ML SDV ONE (16:08)
[2018-01-15] MEDS ORDERED: Ipratropium 12.9 GM Inhaler ONE (16:10)
[2018-01-15] MEDS ORDERED: Albuterol 6.7 GM Inhaler INH ONE (16:10)
[2018-01-15] MEDS ORDERED: Albuterol/Ipratropium 3.0-0.5 MG/3 ML Neb Soln NEB ONE (16:26)
[2018-01-15] MEDS ORDERED: Glycopyrrolate 0.2 MG/ML SDV ONE (16:35)
[2018-01-15] MEDS ORDERED: Neostigmine Methylsulfate 1 MG/ML 5 ML Syringe ONE (16:35)
[2018-01-15] MEDS ORDERED: Sugammadex Sodium 200 MG/2 ML VIAL ONE (16:40)
[2018-01-15] MEDS ORDERED: fentaNYL 100 MCG/2 ML SDV ONE (16:48)
[2018-01-15] MEDS ORDERED: HYDROmorphone/Normal Saline 6 MG/30 ML PCA Vial IV PRN (17:00)
[2018-01-15] MEDS ORDERED: fentaNYL 100 MCG/2 ML SDV IVPUSH PRN (18:22)
--- NOTE | 2018-01-15 19:13 | PCM.POSTAN ---
POST ANESTHESIA ASSESSMENT - MENTAL STATUS Mental Status: Alert, Oriented - VITAL SIGNS Pulse Rate: 98 SaO2: 92 Resp Rate: 14 Blood Pressure: 158/68 - RESPIRATORY Respiratory Status: Respiratory Rate WNL, Airway Patent, O2 Saturation Stable - CARDIOVASCULAR CV Status: Pulse Rate WNL, Blood Pressure Stable - GASTROINTESTINAL GI Status: No Symptoms - PAIN Pain Score: 2 - POST OP HYDRATION Hydration Status: Adequate & Stable - OBSERVATIONS Free Text/Narrative:: Pt was initially on BiPAP 14/7 FiO2 100% with SpO2 of 95%. When the patient woke up she was able to cough up quite a bit of secretions, coarseness throughout all lung loza still remains. Duo-Neb was given without much improvement. Currently she is on Simple mask at 10 LPM with SpO2 95%. Pt responds to voice. Continuous pulse oximetry was ordered by Dr Cotto.
[2018-01-15] MEDS: ceFAZolin 1 GM in Premix Bag 1 BAG IV SCH (21:02)
[2018-01-16] MEDS: Lactated Ringers 1,000 ML IV SCH (01:27)
[2018-01-16] MEDS: ceFAZolin 1 GM in Premix Bag 1 BAG IV SCH ×2 (04:21→12:51)
[2018-01-16 06:30] LABS: CHLORIDE,CL 99 mmol/L (98-107); SODIUM,NA 132 mmol/L (136-145)
[2018-01-16] MEDS ORDERED: Magnesium Sulfate/Water 2 GM in Premix Bag 1 BAG IV ONE (07:34)
--- NOTE | 2018-01-16 07:55 | PCM48HPAN ---
Post Anesthesia Note - EVALUATION WITHIN 48HRS OF ANESTHETIC Vital Signs in Normal Range: Yes Patient Participated in Evaluation: Yes Respiratory Function Stable: Yes Airway Patent: Yes Cardiovascular Function Stable: Yes Hydration Status Stable: Yes Pain Control Satisfactory: Yes Nausea and Vomiting Control Satisfactory: Yes Mental Status Recovered: Yes Pulse Rate: 98 Resp Rate: 16 Blood Pressure: 158/68
[2018-01-16] MEDS: PARoxetine 20 MG Tab PO SCH (08:09)
[2018-01-16] MEDS: Thiamine 200 MG/2 ML MDV IV SCH (08:09)
[2018-01-16] MEDS: Folic Acid 50 MG/10 ML MDV SUBCUT SCH (08:10)
--- NOTE | 2018-01-16 08:54 | PCM.PN ---
- General Info Date of Service: 01/16/18 Admission Dx/Problem (Free Text): Admission Diagnosis/Problem Admission Diagnosis/Problem Hip fracture, intertrochanteric Subjective Update: Feeling good this morning. Pain well controlled to L hip. Coughing up clear to yellow phlegm. Feels a sore throat. No chest pain or SOB. No abdominal pain. Nervous about moving today with hip precautions. Discussed PT will help her with this and guide her the correct movements Functional Status: Reports: Pain Controlled, Tolerating Diet, Urinating - Review of Systems General: Reports: Fatigue ("I didnt sleep well last night"). Denies: Fever, Weakness, Malaise HEENT: Reports: Sore Throat. Denies: Headaches, Visual Changes Pulmonary: Reports: Cough, Sputum (clera to yellow.). Denies: Shortness of Breath, Hemoptysis Cardiovascular: Reports: No Symptoms. Denies: Chest Pain, Dyspnea on Exertion, Edema Gastrointestinal: Reports: No Symptoms. Denies: Abdominal Pain, Flatus, Nausea , Vomiting Genitourinary: Reports: No Symptoms. Denies: Dysuria, Frequency, Burning Musculoskeletal: Reports: Joint Pain (L hip pain, but this is well controlled with BIT TAPPER) Neurological: Reports: Tremors (" I feel pretty shaky this morning.") Psychiatric: Reports: No Symptoms - Patient Data Vitals - Most Recent: Last Vital Signs Temp 97.2 F 01/16/18 04:00 Pulse 98 01/16/18 07:55 Resp 16 01/16/18 07:55 BP 158/68 H 01/16/18 07:55 Pulse Ox 96 01/16/18 04:00 Weight - Most Recent: 60.2 kg I&O - Last 24 Hours: Intake & Output 01/15/18 01/16/18 01/16/18 22:59 06:59 14:59 Intake Total 1950 3199 Output Total 300 375 Balance 1650 2824 Lab Results Last 24 Hours: Laboratory Results - last 24 hr 01/15/18 01/15/18 01/15/18 Range/Units 04:29 09:31 14:00 WBC (4.0-11.0) K/uL RBC (4.30-5.90) M/uL Hgb (12.0-16.0) g/dL Hct (36.0-46.0) % MCV (80.0-98.0) fL MCH (27.0-32.0) pg MCHC (31.0-37.0) g/dL RDW Std Deviation (28.0-62.0) fl RDW Coeff of [place]ory (11.0-15.0) % Plt Count (150-400) K/uL MPV (7.40-12.00) fL Neut % (Auto) (48.0-80.0) % Lymph % (Auto) (16.0-40.0) % [place] % (Auto) (0.0-15.0) % Eos % (Auto) (0.0-7.0) % Baso % (Auto) (0.0-1.5) % Neut # (Auto) (1.4-5.7) K/uL Lymph # (Auto) (0.6-2.4) K/uL [place] # (Auto) (0.0-0.8) K/uL Eos # (Auto) (0.0-0.7) K/uL Baso # (Auto) (0.0-0.1) K/uL Nucleated RBC % /100WBC Nucleated RBCs # K/uL Sodium (136-145) mmol/L Potassium (3.5-5.1) mmol/L Chloride (98-107) mmol/L Carbon Dioxide (21.0-32.0) mmol/L BUN (7.0-18.0) mg/dL Creatinine (0.6-1.0) mg/dL Est Cr Clr Drug Dosing mL/min Estimated GFR (MDRD) ml/min Glucose (74-106) mg/dL POC Glucose (60-110) mg/dL Calcium (8.5-10.1) mg/dL Phosphorus (2.6-4.7) mg/dL Magnesium (1.8-2.4) mg/dL B-Natriuretic Peptide < 15 (<100) PG/ML Urine Color YELLOW Urine Appearance CLEAR Urine pH 5.5 (5.0-8.0) Ur Specific [place] >= 1.030 (1.001-1.035) Urine Protein TRACE (NEGATIVE) mg/dL Urine Glucose (UA) NEGATIVE (NEGATIVE) mg/dL Urine Ketones TRACE H (NEGATIVE) mg/dL Urine Occult Blood LARGE H (NEGATIVE) Urine Nitrite NEGATIVE (NEGATIVE) Urine Bilirubin NEGATIVE (NEGATIVE) Urine Urobilinogen 0.2 (<2.0) EU/dL Ur Leukocyte Esterase NEGATIVE (NEGATIVE) Blood Type A POSITIVE Antibody Screen NEGATIVE 01/15/18 01/16/18 01/16/18 Range/Units 22:56 06:03 06:03 WBC 8.68 (4.0-11.0) K/uL RBC 3.36 L (4.30-5.90) M/uL Hgb 10.3 L (12.0-16.0) g/dL Hct 32.8 L (36.0-46.0) % MCV 97.6 (80.0-98.0) fL MCH 30.7 (27.0-32.0) pg MCHC 31.4 (31.0-37.0) g/dL RDW Std Deviation 55.1 (28.0-62.0) fl RDW Coeff of [place]ory 16 H (11.0-15.0) % Plt Count 208 (150-400) K/uL MPV 10.40 (7.40-12.00) fL Neut % (Auto) 76.3 (48.0-80.0) % Lymph % (Auto) 12.7 L (16.0-40.0) % [place] % (Auto) 9.7 (0.0-15.0) % Eos % (Auto) 0.8 (0.0-7.0) % Baso % (Auto) 0.5 (0.0-1.5) % Neut # (Auto) 6.6 H (1.4-5.7) K/uL Lymph # (Auto) 1.1 (0.6-2.4) K/uL [place] # (Auto) 0.8 (0.0-0.8) K/uL Eos # (Auto) 0.1 (0.0-0.7) K/uL Baso # (Auto) 0.0 (0.0-0.1) K/uL Nucleated RBC % 0.2 /100WBC Nucleated RBCs # 0 K/uL Sodium 132 L (136-145) mmol/L Potassium 4.3 (3.5-5.1) mmol/L Chloride 99 (98-107) mmol/L Carbon Dioxide 27.8 (21.0-32.0) mmol/L BUN 9 (7.0-18.0) mg/dL Creatinine 0.7 (0.6-1.0) mg/dL Est Cr Clr Drug Dosing 60.46 mL/min Estimated GFR (MDRD) > 60.0 ml/min Glucose 131 H (74-106) mg/dL POC Glucose 111 H (60-110) mg/dL Calcium 7.5 L (8.5-10.1) mg/dL Phosphorus 3.0 (2.6-4.7) mg/dL Magnesium 1.6 L (1.8-2.4) mg/dL B-Natriuretic Peptide (<100) PG/ML Urine Color Urine Appearance Urine pH (5.0-8.0) Ur Specific [place] (1.001-1.035) Urine Protein (NEGATIVE) mg/dL Urine Glucose (UA) (NEGATIVE) mg/dL Urine Ketones (NEGATIVE) mg/dL Urine Occult Blood (NEGATIVE) Urine Nitrite (NEGATIVE) Urine Bilirubin (NEGATIVE) Urine Urobilinogen (<2.0) EU/dL Ur Leukocyte Esterase (NEGATIVE) Blood Type Antibody Screen Med Orders - Current: Current Medications Enoxaparin Sodium (Lovenox) 40 mg SUBCUT Q24H [facility] Fentanyl (Sublimaze) 50 mcg IVPUSH Q5M PRN PRN Reason: Pain (severe 7-10) Stop: 01/16/18 18:22 Folic Acid (Folic Acid) 1 mg SUBCUT DAILY [facility] Last Admin: 01/16/18 08:10 Dose: 1 mg Hydromorphone HCl (Dilaudid Shank Cementer Hand 6 Mg In Ns 30 Ml) 0 mg IV ASDIRECTED PRN; Protocol PRN Reason: Pain Last Admin: 01/15/18 18:32 Dose: 6 mg Cefazolin Sodium/Dextrose 1 gm (/ Premix) 50 mls @ 100 mls/hr IV Q8H [facility] Stop: 01/16/18 13:29 Last Admin: 01/16/18 04:21 Dose: 100 mls/hr Lorazepam (Ativan) 0 mg IVPUSH Q4H PRN; Protocol PRN Reason: CIWAA Ondansetron HCl (Zofran) 4 mg IVPUSH Q4H PRN PRN Reason: Nausea Oxycodone/Acetaminophen (Percocet 325-5 Mg) 1 - 2 tab PO Q4H PRN PRN Reason: Pain Paroxetine HCl (Paxil) 20 mg PO DAILY [facility] Last Admin: 01/16/18 08:09 Dose: 20 mg Sodium Chloride (Saline Flush) 10 ml FLUSH ASDIRECTED PRN PRN Reason: Keep Vein Open Sodium Chloride (Saline Flush) 2.5 ml FLUSH ASDIRECTED PRN PRN Reason: Keep Vein Open Thiamine HCl (Vitamin B-1) 100 mg IV DAILY [facility] Last Admin: 01/16/18 08:09 Dose: 100 mg Discontinued Medications Albuterol (Proventil Hfa) Confirm Administered Dose 6.7 gm INH .STK-MED ONE Stop: 01/15/18 16:11 Albuterol/Ipratropium (Duoneb 3.0-0.5 Mg/3 Ml) 3 ml NEB ONETIME ONE Stop: 01/15/18 16:27 Last Admin: 01/15/18 18:27 Dose: 3 ml Ephedrine Sulfate (Ephedrine Sulfate) Confirm Administered Dose 50 mg .ROUTE .STK-MED ONE Stop: 01/15/18 16:09 Fentanyl (Sublimaze) Confirm Administered Dose 250 mcg .ROUTE .STK-MED ONE Stop: 01/15/18 15:20 Fentanyl (Sublimaze) Confirm Administered Dose 100 mcg .ROUTE .STK-MED ONE Stop: 01/15/18 16:49 Glycopyrrolate (Robinul) Confirm Administered Dose 0.4 mg .ROUTE .STK-MED ONE Stop: 01/15/18 16:36 Cefazolin Sodium/Dextrose 1 gm (/ Premix) 50 mls @ 100 mls/hr IV Q8H ONE Stop: 01/15/18 12:29 Last Admin: 01/15/18 19:53 Dose: Not Given Lactated Ringer's (Ringers, Lactated) 1,000 mls @ 125 mls/hr IV ASDIRECTED [facility] Last Admin: 01/15/18 09:15 Dose: 125 mls/hr Lactated Ringer's (Ringers, Lactated) 1,000 mls @ 75 mls/hr IV ASDIRECTED [facility] Last Admin: 01/16/18 01:27 Dose: 75 mls/hr Magnesium Sulfate 2 gm/ Premix 50 mls @ 50 mls/hr IV ONETIME ONE Stop: 01/16/18 08:33 Last Admin: 01/16/18 08:08 Dose: 50 mls/hr Iopamidol (Isovue Multipack-370 (76%)) 75 ml IVPUSH ONETIME STA Stop: 01/15/18 14:51 Last Admin: 01/15/18 14:51 Dose: 75 ml Ipratropium [place] (Atrovent Hfa) Confirm Administered Dose 12.9 gm .ROUTE .STK -MED ONE Stop: 01/15/18 16:11 Lidocaine (Xylocaine-Mpf 2%) Confirm Administered Dose 5 ml .ROUTE .STK-MED ONE Stop: 01/15/18 15:20 Midazolam HCl (Versed 1 Mg/Ml) Confirm Administered Dose 2 mg .ROUTE .STK-MED ONE Stop: 01/15/18 15:20 Morphine Sulfate (Morphine) 2 mg IVPUSH ONETIME ONE Stop: 01/15/18 04:26 Last Admin: 01/15/18 04:35 Dose: 2 mg Morphine Sulfate (Morphine) 2 mg IVPUSH ONETIME ONE Stop: 01/15/18 05:18 Last Admin: 01/15/18 05:27 Dose: 2 mg Morphine Sulfate (Morphine) 2 mg IVPUSH ONETIME ONE Stop: 01/15/18 06:24 Last Admin: 01/15/18 06:28 Dose: 2 mg Morphine Sulfate (Morphine) 2 mg IVPUSH ONETIME ONE Stop: 01/15/18 07:02 Last Admin: 01/15/18 07:31 Dose: 2 mg Morphine Sulfate (Morphine) 2 mg IVPUSH Q2H PRN PRN Reason: pain Last Admin: 01/15/18 13:05 Dose: 2 mg Neostigmine Methylsulfate (Neostigmine) Confirm Administered Dose 5 mg .ROUTE .STK-MED ONE Stop: 01/15/18 16:36 Ondansetron HCl (Zofran) 4 mg IVPUSH ONETIME ONE Stop: 01/15/18 04:26 Last Admin: 01/15/18 04:36 Dose: 4 mg Ondansetron HCl (Zofran) Confirm Administered Dose 4 mg .ROUTE .STK-MED ONE Stop: 01/15/18 15:20 Propofol (Diprivan 20 Ml) Confirm Administered Dose 200 mg .ROUTE .STK-MED ONE Stop: 01/15/18 15:20 Rocuronium [place] (Zemuron) Confirm Administered Dose 100 mg .ROUTE .STK-MED ONE Stop: 01/15/18 15:20 Succinylcholine Chloride (Quelicin) Confirm Administered Dose 200 mg .ROUTE .STK -MED ONE Stop: 01/15/18 15:20 Sugammadex Sodium ([place]) Confirm Administered Dose 200 mg .ROUTE .STK-MED ONE Stop: 01/15/18 16:41 Tranexamic Acid (Cyklokapron) Confirm Administered Dose 2,000 mg .ROUTE .STK- MED ONE Stop: 01/15/18 16:16 - Exam Quality Assessment: Supplemental Oxygen, Urine Catheter, DVT Prophylaxis General: Alert, Oriented, Cooperative, No Acute Distress Neck: Supple Lungs: Rhonchi (throughout, clears some with coughing.) Cardiovascular: Regular Rate, Regular Rhythm, No Murmurs GI/Abdominal Exam: Normal Bowel Sounds, Soft, Non-Tender, No Distention Extremities: Normal Inspection, Non-Tender, No Pedal Edema, Normal Capillary Refill Wound/Incisions: Dressing Dry and Intact (L hip) Neurological: Other (tremors noted this am. ) Psy/Mental Status: Alert, Normal Affect, Normal Mood. No: Anxious, Agitated, Hallucinations - Problem List & Annotations (1) Femoral neck fracture SNOMED Code(s): 6063920 Code(s): S72.009A - FRACTURE OF UNSP PART OF NECK OF UNSP FEMUR, INIT Status: Acute Current Visit: Yes Qualifiers: Encounter type: initial encounter Fracture type: closed Laterality: left Qualified Code(s): S72.002A - Fracture of unspecified part of neck of left femur, initial encounter for closed fracture (2) Cardiomegaly SNOMED Code(s): 1002794 Code(s): I51.7 - CARDIOMEGALY Status: Acute Current Visit: Yes (3) Tobacco abuse SNOMED Code(s): 162928122 Code(s): Z72.0 - TOBACCO USE Status: Chronic Current Visit: Yes (4) Alcohol abuse SNOMED Code(s): 02673141 Code(s): F10.10 - ALCOHOL ABUSE, UNCOMPLICATED Status: Chronic Current Visit: Yes (5) Depression SNOMED Code(s): 92339392 Code(s): F32.9 - MAJOR DEPRESSIVE DISORDER, SINGLE EPISODE, UNSPECIFIED Status: Chronic Current Visit: Yes (6) Anxiety SNOMED Code(s): 50702271 Code(s): F41.9 - ANXIETY DISORDER, UNSPECIFIED Status: Chronic Current Visit: Yes (7) Hypothyroid SNOMED Code(s): 71823329 Code(s): E03.9 - HYPOTHYROIDISM, UNSPECIFIED Status: Chronic Current Visit: Yes (8) Homeless single person SNOMED Code(s): 710438449 Code(s): Z59.0 - HOMELESSNESS Status: Chronic Current Visit: Yes - Problem List Review Problem List Initiated/Reviewed/Updated: Yes - My Orders Last 24 Hours: My Active Orders 01/15/18 10:50 Consult to Physician [CONS] Routine 01/15/18 10:51 Notify Provider Consults [RC] ASDIRECTED 01/15/18 11:44 Height and Weight [RC] DAILY VTE/DVT Education [RC] PER UNIT ROUTINE Vital Signs [RC] Q4H Ondansetron [Zofran] 4 mg IVPUSH Q4H PRN Resuscitation Status Routine 01/15/18 13:11 Chest w Cont [CT] Stat 01/15/18 14:03 Intake and Output Strict [RC] Q12H 01/15/18 15:45 LORazepam [Ativan] See Protocol IVPUSH Q4H PRN 01/15/18 15:48 CIWAA Assessment [RC] Q4H 01/16/18 09:00 Folic Acid 1 mg SUBCUT DAILY PARoxetine [Paxil] 20 mg PO DAILY Thiamine [Vitamin B-1] 100 mg IV DAILY 01/17/18 05:11 BASIC METABOLIC PANEL,BMP [CHEM] AM CBC WITH AUTO DIFF [HEME] AM MAGNESIUM [CHEM] AM PHOSPHORUS [CHEM] AM 01/18/18 05:11 BASIC METABOLIC PANEL,BMP [CHEM] AM CBC WITH AUTO DIFF [HEME] AM MAGNESIUM [CHEM] AM PHOSPHORUS [CHEM] AM - Plan Plan:: This 67 year old female admitted with L femoral neck fracture 1. Femoral neck fracture: Dr Cotto, Orthopedics consulted. OR last evening. 2. Cardiomegaly: Denies hx of cardiac issues. Anesthesia consulted Dr Mackey. ECHO ordered. Monitor fluid status closely. CT of chest obtained to evaluate R retrocardiac density. CT revealed scattered bilateral areas of subsegmental atelectasis and/or scarring, mild cardiomegaly, non-acute findings. 3. Alcohol abuse: Tremors noted this am. But she reports overall feeling ok. Max CIWA 3, no Ativan needed. Continue to monitor closely. CIWAA protocol with Ativan protocol. Supplement with Thiamine and Folic Acid daily. Magnesium supplemented this am, 2 gm IV. 4. Depression/Anxiety: Stable. Continue Paxil. 5. Hypothryoidism: Stable. Continue Levothyroxine. VTE prophylaxis: Lovenox to begin this evening.
[2018-01-16] MEDS: Acetaminophen/oxyCODONE 325-5 MG Tab PO PRN ×3 (08:58→22:24)
[2018-01-16] MEDS ORDERED: Levothyroxine 100 MCG Tab PO SCH (09:00)
[2018-01-16] MEDS ORDERED: Benzocaine/Cetylpyridinium/Menthol Lozenge MUCMEM PRN (09:27)
--- NOTE | 2018-01-16 09:29 | PCM.SURGPN ---
<Karen Mitchell R - Last Filed: 01/16/18 09:29> - General Info Date of Service: 01/16/18 Date of Surgery/Procedure: 01/15/18 POD#: 1 Functional Status: Reports: Pain Controlled - Review of Systems Pulmonary: Reports: Cough, Sputum. Denies: Shortness of Breath Cardiovascular: Denies: Chest Pain, Palpitations Systems Review Comment:: pt comfortable in bed no specific concerns sore throat last night and this morning, ice water helps but would like cepacol lozenge pain controlled has not been OOB - Patient Data Vitals - Most Recent: Last Vital Signs Temp 97.2 F 01/16/18 04:00 Pulse 98 01/16/18 07:55 Resp 16 01/16/18 07:55 BP 158/68 H 01/16/18 07:55 Pulse Ox 96 01/16/18 04:00 Weight - Most Recent: 60.2 kg I&O - Last 24 Hours: Intake & Output 01/15/18 01/16/18 01/16/18 22:59 06:59 14:59 Intake Total 1950 3199 Output Total 300 375 Balance 1650 2824 Lab Results Last 24 Hrs: Laboratory Results - last 24 hr 01/15/18 01/15/18 01/15/18 Range/Units 04:29 09:31 14:00 WBC (4.0-11.0) K/uL RBC (4.30-5.90) M/uL Hgb (12.0-16.0) g/dL Hct (36.0-46.0) % MCV (80.0-98.0) fL MCH (27.0-32.0) pg MCHC (31.0-37.0) g/dL RDW Std Deviation (28.0-62.0) fl RDW Coeff of Mallory (11.0-15.0) % Plt Count (150-400) K/uL MPV (7.40-12.00) fL Neut % (Auto) (48.0-80.0) % Lymph % (Auto) (16.0-40.0) % [place] % (Auto) (0.0-15.0) % Eos % (Auto) (0.0-7.0) % Baso % (Auto) (0.0-1.5) % Neut # (Auto) (1.4-5.7) K/uL Lymph # (Auto) (0.6-2.4) K/uL [place] # (Auto) (0.0-0.8) K/uL Eos # (Auto) (0.0-0.7) K/uL Baso # (Auto) (0.0-0.1) K/uL Nucleated RBC % /100WBC Nucleated RBCs # K/uL Sodium (136-145) mmol/L Potassium (3.5-5.1) mmol/L Chloride (98-107) mmol/L Carbon Dioxide (21.0-32.0) mmol/L BUN (7.0-18.0) mg/dL Creatinine (0.6-1.0) mg/dL Est Cr Clr Drug Dosing mL/min Estimated GFR (MDRD) ml/min Glucose (74-106) mg/dL POC Glucose (60-110) mg/dL Calcium (8.5-10.1) mg/dL Phosphorus (2.6-4.7) mg/dL Magnesium (1.8-2.4) mg/dL B-Natriuretic Peptide < 15 (<100) PG/ML Urine Color YELLOW Urine Appearance CLEAR Urine pH 5.5 (5.0-8.0) Ur Specific [place] >= 1.030 (1.001-1.035) Urine Protein TRACE (NEGATIVE) mg/dL Urine Glucose (UA) NEGATIVE (NEGATIVE) mg/dL Urine Ketones TRACE H (NEGATIVE) mg/dL Urine Occult Blood LARGE H (NEGATIVE) Urine Nitrite NEGATIVE (NEGATIVE) Urine Bilirubin NEGATIVE (NEGATIVE) Urine Urobilinogen 0.2 (<2.0) EU/dL Ur Leukocyte Esterase NEGATIVE (NEGATIVE) Blood Type A POSITIVE Antibody Screen NEGATIVE 01/15/18 01/16/18 01/16/18 Range/Units 22:56 06:03 06:03 WBC 8.68 (4.0-11.0) K/uL RBC 3.36 L (4.30-5.90) M/uL Hgb 10.3 L (12.0-16.0) g/dL Hct 32.8 L (36.0-46.0) % MCV 97.6 (80.0-98.0) fL MCH 30.7 (27.0-32.0) pg MCHC 31.4 (31.0-37.0) g/dL RDW Std Deviation 55.1 (28.0-62.0) fl RDW Coeff of Mallory 16 H (11.0-15.0) % Plt Count 208 (150-400) K/uL MPV 10.40 (7.40-12.00) fL Neut % (Auto) 76.3 (48.0-80.0) % Lymph % (Auto) 12.7 L (16.0-40.0) % [place] % (Auto) 9.7 (0.0-15.0) % Eos % (Auto) 0.8 (0.0-7.0) % Baso % (Auto) 0.5 (0.0-1.5) % Neut # (Auto) 6.6 H (1.4-5.7) K/uL Lymph # (Auto) 1.1 (0.6-2.4) K/uL [place] # (Auto) 0.8 (0.0-0.8) K/uL Eos # (Auto) 0.1 (0.0-0.7) K/uL Baso # (Auto) 0.0 (0.0-0.1) K/uL Nucleated RBC % 0.2 /100WBC Nucleated RBCs # 0 K/uL Sodium 132 L (136-145) mmol/L Potassium 4.3 (3.5-5.1) mmol/L Chloride 99 (98-107) mmol/L Carbon Dioxide 27.8 (21.0-32.0) mmol/L BUN 9 (7.0-18.0) mg/dL Creatinine 0.7 (0.6-1.0) mg/dL Est Cr Clr Drug Dosing 60.46 mL/min Estimated GFR (MDRD) > 60.0 ml/min Glucose 131 H (74-106) mg/dL POC Glucose 111 H (60-110) mg/dL Calcium 7.5 L (8.5-10.1) mg/dL Phosphorus 3.0 (2.6-4.7) mg/dL Magnesium 1.6 L (1.8-2.4) mg/dL B-Natriuretic Peptide (<100) PG/ML Urine Color Urine Appearance Urine pH (5.0-8.0) Ur Specific [place] (1.001-1.035) Urine Protein (NEGATIVE) mg/dL Urine Glucose (UA) (NEGATIVE) mg/dL Urine Ketones (NEGATIVE) mg/dL Urine Occult Blood (NEGATIVE) Urine Nitrite (NEGATIVE) Urine Bilirubin (NEGATIVE) Urine Urobilinogen (<2.0) EU/dL Ur Leukocyte Esterase (NEGATIVE) Blood Type Antibody Screen Med Orders - Current: Current Medications Enoxaparin Sodium (Lovenox) 40 mg SUBCUT Q24H [facility] Folic Acid (Folic Acid) 1 mg SUBCUT DAILY [facility] Last Admin: 01/16/18 08:10 Dose: 1 mg Hydromorphone HCl (Dilaudid Manager Erp 6 Mg In Ns 30 Ml) 0 mg IV ASDIRECTED PRN; Protocol PRN Reason: Pain Last Admin: 01/15/18 18:32 Dose: 6 mg Cefazolin Sodium/Dextrose 1 gm (/ Premix) 50 mls @ 100 mls/hr IV Q8H [facility] Stop: 01/16/18 13:29 Last Admin: 01/16/18 04:21 Dose: 100 mls/hr Levothyroxine Sodium (Synthroid) 100 mcg PO DAILY [facility] Lorazepam (Ativan) 0 mg IVPUSH Q4H PRN; Protocol PRN Reason: CIWAA Ondansetron HCl (Zofran) 4 mg IVPUSH Q4H PRN PRN Reason: Nausea Oxycodone/Acetaminophen (Percocet 325-5 Mg) 1 - 2 tab PO Q4H PRN PRN Reason: Pain Last Admin: 01/16/18 08:58 Dose: 2 tab Paroxetine HCl (Paxil) 20 mg PO DAILY [facility] Last Admin: 01/16/18 08:09 Dose: 20 mg Sodium Chloride (Saline Flush) 10 ml FLUSH ASDIRECTED PRN PRN Reason: Keep Vein Open Sodium Chloride (Saline Flush) 2.5 ml FLUSH ASDIRECTED PRN PRN Reason: Keep Vein Open Thiamine HCl (Vitamin B-1) 100 mg IV DAILY [facility] Last Admin: 01/16/18 08:09 Dose: 100 mg Discontinued Medications Albuterol (Proventil Hfa) Confirm Administered Dose 6.7 gm INH .STK-MED ONE Stop: 01/15/18 16:11 Albuterol/Ipratropium (Duoneb 3.0-0.5 Mg/3 Ml) 3 ml NEB ONETIME ONE Stop: 01/15/18 16:27 Last Admin: 01/15/18 18:27 Dose: 3 ml Ephedrine Sulfate (Ephedrine Sulfate) Confirm Administered Dose 50 mg .ROUTE .STK-MED ONE Stop: 01/15/18 16:09 Fentanyl (Sublimaze) Confirm Administered Dose 250 mcg .ROUTE .STK-MED ONE Stop: 01/15/18 15:20 Fentanyl (Sublimaze) Confirm Administered Dose 100 mcg .ROUTE .STK-MED ONE Stop: 01/15/18 16:49 Fentanyl (Sublimaze) 50 mcg IVPUSH Q5M PRN PRN Reason: Pain (severe 7-10) Stop: 01/16/18 18:22 Glycopyrrolate (Robinul) Confirm Administered Dose 0.4 mg .ROUTE .STK-MED ONE Stop: 01/15/18 16:36 Cefazolin Sodium/Dextrose 1 gm (/ Premix) 50 mls @ 100 mls/hr IV Q8H ONE Stop: 01/15/18 12:29 Last Admin: 01/15/18 19:53 Dose: Not Given Lactated Ringer's (Ringers, Lactated) 1,000 mls @ 125 mls/hr IV ASDIRECTED [facility] Last Admin: 01/15/18 09:15 Dose: 125 mls/hr Lactated Ringer's (Ringers, Lactated) 1,000 mls @ 75 mls/hr IV ASDIRECTED [facility] Last Admin: 01/16/18 01:27 Dose: 75 mls/hr Magnesium Sulfate 2 gm/ Premix 50 mls @ 50 mls/hr IV ONETIME ONE Stop: 01/16/18 08:33 Last Admin: 01/16/18 08:08 Dose: 50 mls/hr Iopamidol (Isovue Multipack-370 (76%)) 75 ml IVPUSH ONETIME STA Stop: 01/15/18 14:51 Last Admin: 01/15/18 14:51 Dose: 75 ml Ipratropium Todd (Atrovent Hfa) Confirm Administered Dose 12.9 gm .ROUTE .STK -MED ONE Stop: 01/15/18 16:11 Lidocaine (Xylocaine-Mpf 2%) Confirm Administered Dose 5 ml .ROUTE .STK-MED ONE Stop: 01/15/18 15:20 Midazolam HCl (Versed 1 Mg/Ml) Confirm Administered Dose 2 mg .ROUTE .STK-MED ONE Stop: 01/15/18 15:20 Morphine Sulfate (Morphine) 2 mg IVPUSH ONETIME ONE Stop: 01/15/18 04:26 Last Admin: 01/15/18 04:35 Dose: 2 mg Morphine Sulfate (Morphine) 2 mg IVPUSH ONETIME ONE Stop: 01/15/18 05:18 Last Admin: 01/15/18 05:27 Dose: 2 mg Morphine Sulfate (Morphine) 2 mg IVPUSH ONETIME ONE Stop: 01/15/18 06:24 Last Admin: 01/15/18 06:28 Dose: 2 mg Morphine Sulfate (Morphine) 2 mg IVPUSH ONETIME ONE Stop: 01/15/18 07:02 Last Admin: 01/15/18 07:31 Dose: 2 mg Morphine Sulfate (Morphine) 2 mg IVPUSH Q2H PRN PRN Reason: pain Last Admin: 01/15/18 13:05 Dose: 2 mg Neostigmine Methylsulfate (Neostigmine) Confirm Administered Dose 5 mg .ROUTE .STK-MED ONE Stop: 01/15/18 16:36 Ondansetron HCl (Zofran) 4 mg IVPUSH ONETIME ONE Stop: 01/15/18 04:26 Last Admin: 01/15/18 04:36 Dose: 4 mg Ondansetron HCl (Zofran) Confirm Administered Dose 4 mg .ROUTE .STK-MED ONE Stop: 01/15/18 15:20 Propofol (Diprivan 20 Ml) Confirm Administered Dose 200 mg .ROUTE .STK-MED ONE Stop: 01/15/18 15:20 Rocuronium Todd (Zemuron) Confirm Administered Dose 100 mg .ROUTE .STK-MED ONE Stop: 01/15/18 15:20 Succinylcholine Chloride (Quelicin) Confirm Administered Dose 200 mg .ROUTE .STK -MED ONE Stop: 01/15/18 15:20 Sugammadex Sodium (Bridion) Confirm Administered Dose 200 mg .ROUTE .STK-MED ONE Stop: 01/15/18 16:41 Tranexamic Acid (Cyklokapron) Confirm Administered Dose 2,000 mg .ROUTE .STK- MED ONE Stop: 01/15/18 16:16 - Exam Wound/Incisions: Dressing Dry and Intact. No: Drainage, Erythema General: Alert, Oriented Cardiovascular: Regular Rate, Regular Rhythm Extremities: No Pedal Edema, Other (posterior dressing clean/dry/no drainage. thigh/calf soft, at/ehl/gastroc 5/5, dp 2+, sensation intact distally) Physical Findings Comment:: vss, afeb o2 sats low 90s with supplemental 02 at 3L/min hgb 10.3 - Problem List Review Problem List Initiated/Reviewed/Updated: Yes - My Orders Last 24 Hours: Active Orders 24 hr Category Date Time Status Transfer Patient (Change bed) [ADT] Routine ADT 01/15/18 18:13 Ordered CIWAA Assessment [RC] Q4H Care 01/15/18 15:48 Active Cardiac Monitoring Discontinue [RC] Click to Edit Care 01/16/18 08:54 Active Cardiac Monitoring [RC] Q8H Care 01/15/18 18:50 Active EKG 12 Lead [EKG Documentation Completion] [RC] STAT Care 01/15/18 15:10 Active Height and Weight [RC] DAILY Care 01/15/18 11:44 Active Incentive Spirometry [RT Incentive Spirometry] [RC] Care 01/16/18 08:55 Active ASDIRECTED Intake and Output Strict [RC] Q12H Care 01/15/18 14:03 Active Notify Provider Consults [RC] ASDIRECTED Care 01/15/18 10:51 Active Notify Provider Consults [RC] ASDIRECTED Care 01/15/18 11:53 Active Notify Provider Vital Signs [RC] ASDIRECTED Care 01/15/18 15:36 Active Overnight Pulse Oximetry [RC] Click to Edit Care 01/15/18 18:16 Inactive Oxygen Therapy [RC] ASDIRECTED Care 01/15/18 18:15 Active RT Aerosol Therapy [RC] ASDIRECTED Care 01/15/18 16:27 Active RT BiPAP/CPAP [RC] ASDIRECTED Care 01/15/18 16:26 Active VTE/DVT Education [RC] PER UNIT ROUTINE Care 01/15/18 11:44 Active Vital Signs [RC] Q4H Care 01/15/18 11:44 Active Consult to Physician [CONS] Routine Cons 01/15/18 10:50 Active PT Evaluation and Treatment [CONS] Routine Cons 01/16/18 09:00 Active Regular Diet [DIET] Diet 01/15/18 Dinner Active Chest w Cont [CT] Stat Exams 01/15/18 13:11 Taken Echo Comp wo Cont [US] Stat Exams 01/15/18 10:41 Taken Hip Min 1V w Pelvis Lt [CR] Routine Exams 01/15/18 17:34 Taken Pelvis 1V or 2V [CR] Routine Exams 01/15/18 16:32 Taken BASIC METABOLIC PANEL,BMP [CHEM] AM Lab 01/17/18 05:11 Ordered BASIC METABOLIC PANEL,BMP [CHEM] AM Lab 01/18/18 05:11 Ordered CBC WITH AUTO DIFF [HEME] AM Lab 01/17/18 05:11 Ordered CBC WITH AUTO DIFF [HEME] AM Lab 01/18/18 05:11 Ordered MAGNESIUM [CHEM] AM Lab 01/17/18 05:11 Ordered MAGNESIUM [CHEM] AM Lab 01/18/18 05:11 Ordered PHOSPHORUS [CHEM] AM Lab 01/17/18 05:11 Ordered PHOSPHORUS [CHEM] AM Lab 01/18/18 05:11 Ordered URINALYSIS W/O MICROSCOPIC [UA W/O MICROSCOPIC] [URIN] Lab 01/15/18 14:00 Ordered Stat Acetaminophen/oxyCODONE [Percocet 325-5 MG] Med 01/15/18 15:39 Active 1 - 2 tab PO Q4H PRN Benzocaine/Cetylpyrd/Menthol [Cepacol Sore Throat] Med 01/16/18 09:27 Ordered 1 lozenge MUCMEM 6XDAY PRN Enoxaparin [Lovenox] Med 01/16/18 21:00 Active 40 mg SUBCUT Q24H Folic Acid Med 01/16/18 09:00 Active 1 mg SUBCUT DAILY HYDROmorphone/Normal Saline [Dilaudid LOAD TESTER 6 MG in NS 30 Med 01/15/18 17:00 Active ML] 0 mg IV ASDIRECTED PRN LORazepam [Ativan] Med 01/15/18 15:45 Active See Protocol IVPUSH Q4H PRN Levothyroxine [Synthroid] Med 01/16/18 09:00 Active 100 mcg PO DAILY Ondansetron [Zofran] Med 01/15/18 11:44 Active 4 mg IVPUSH Q4H PRN PARoxetine [Paxil] Med 01/16/18 09:00 Active 20 mg PO DAILY Thiamine [Vitamin B-1] Med 01/16/18 09:00 Active 100 mg IV DAILY ceFAZolin [Ancef] 1 gm Med 01/15/18 21:00 Active Premix Bag 1 bag IV Q8H Hip Precautions Posterior [OM.PC] Routine Oth 01/15/18 15:43 Ordered Resuscitation Status Routine Resus Stat 01/15/18 11:44 Ordered Medication Orders Enoxaparin Sodium (Lovenox) 40 mg SUBCUT Q24H [facility] Folic Acid (Folic Acid) 1 mg SUBCUT DAILY [facility] Last Admin: 01/16/18 08:10 Dose: 1 mg Hydromorphone HCl (Dilaudid Manager Erp 6 Mg In Ns 30 Ml) 0 mg IV ASDIRECTED PRN; Protocol PRN Reason: Pain Last Admin: 01/15/18 18:32 Dose: 6 mg Cefazolin Sodium/Dextrose 1 gm (/ Premix) 50 mls @ 100 mls/hr IV Q8H [facility] Stop: 01/16/18 13:29 Last Admin: 01/16/18 04:21 Dose: 100 mls/hr Infusion: 01/15/18 21:32 Dose: 100 mls/hr Admin: 01/15/18 21:02 Dose: 100 mls/hr Levothyroxine Sodium (Synthroid) 100 mcg PO DAILY [facility] Lorazepam (Ativan) 0 mg IVPUSH Q4H PRN; Protocol PRN Reason: CIWAA Ondansetron HCl (Zofran) 4 mg IVPUSH Q4H PRN PRN Reason: Nausea Oxycodone/Acetaminophen (Percocet 325-5 Mg) 1 - 2 tab PO Q4H PRN PRN Reason: Pain Last Admin: 01/16/18 08:58 Dose: 2 tab Paroxetine HCl (Paxil) 20 mg PO DAILY [facility] Last Admin: 01/16/18 08:09 Dose: 20 mg Sodium Chloride (Saline Flush) 10 ml FLUSH ASDIRECTED PRN PRN Reason: Keep Vein Open Sodium Chloride (Saline Flush) 2.5 ml FLUSH ASDIRECTED PRN PRN Reason: Keep Vein Open Thiamine HCl (Vitamin B-1) 100 mg IV DAILY [facility] Last Admin: 01/16/18 08:09 Dose: 100 mg - Assessment Assessment (Free Text/Narrative):: POD#1 L hip hemiarthroplasty acute posthemorrhagic anemia - Plan Plan (Free Text/Narrative):: DC LOAD TESTER - dilaudid IV prn breakthrough pain PT today with posterior hip precautions okay to transfer to chair/toilet lovenox subq for DVT prophylaxis will change dressing tomorrow to Aquacel dressing appreciate hospitalist management <Julita Cotto - Last Filed: 01/17/18 09:14> - Patient Data Vitals - Most Recent: Last Vital Signs Temp 97.1 F 01/17/18 04:00 Pulse 80 01/17/18 04:00 Resp 16 01/17/18 04:00 BP 119/60 01/17/18 04:00 Pulse Ox 91 L 01/17/18 04:00 I&O - Last 24 Hours: Intake & Output 01/16/18 01/17/18 01/17/18 22:59 06:59 14:59 Intake Total 700 400 Output Total 1020 1070 Balance -320 -670 Lab Results Last 24 Hrs: Laboratory Results - last 24 hr 01/17/18 01/17/18 Range/Units 05:17 05:17 WBC 8.36 (4.0-11.0) K/uL RBC 3.31 L (4.30-5.90) M/uL Hgb 10.1 L (12.0-16.0) g/dL Hct 32.1 L (36.0-46.0) % MCV 97.0 (80.0-98.0) fL MCH 30.5 (27.0-32.0) pg MCHC 31.5 (31.0-37.0) g/dL RDW Std Deviation 53.3 (28.0-62.0) fl RDW Coeff of Mallory 15 (11.0-15.0) % Plt Count 208 (150-400) K/uL MPV 10.80 (7.40-12.00) fL Neut % (Auto) 69.0 (48.0-80.0) % Lymph % (Auto) 17.3 (16.0-40.0) % [place] % (Auto) 10.4 (0.0-15.0) % Eos % (Auto) 2.9 (0.0-7.0) % Baso % (Auto) 0.4 (0.0-1.5) % Neut # (Auto) 5.8 H (1.4-5.7) K/uL Lymph # (Auto) 1.5 (0.6-2.4) K/uL [place] # (Auto) 0.9 H (0.0-0.8) K/uL Eos # (Auto) 0.2 (0.0-0.7) K/uL Baso # (Auto) 0.0 (0.0-0.1) K/uL Nucleated RBC % 0.0 /100WBC Nucleated RBCs # 0 K/uL Sodium 134 L (136-145) mmol/L Potassium 3.5 (3.5-5.1) mmol/L Chloride 98 (98-107) mmol/L Carbon Dioxide 30.8 (21.0-32.0) mmol/L BUN 6 L (7.0-18.0) mg/dL Creatinine 0.8 (0.6-1.0) mg/dL Est Cr Clr Drug Dosing 52.90 mL/min Estimated GFR (MDRD) > 60.0 ml/min Glucose 102 (74-106) mg/dL Calcium 8.4 L (8.5-10.1) mg/dL Phosphorus 2.3 L (2.6-4.7) mg/dL Magnesium 1.7 L (1.8-2.4) mg/dL Med Orders - Current: Current Medications Benzocaine/Menthol (Cepacol Sore Throat) 1 lozenge MUCMEM 6XDAY PRN PRN Reason: Sore Throat Bisacodyl (Dulcolax) 10 mg RECTAL DAILY PRN PRN Reason: Constipation Docusate Sodium (Colace) 100 mg PO BID [facility] Enoxaparin Sodium (Lovenox) 40 mg SUBCUT Q24H [facility] Last Admin: 01/16/18 22:01 Dose: 40 mg Folic Acid (Folic Acid) 1 mg SUBCUT DAILY [facility] Last Admin: 01/16/18 08:10 Dose: 1 mg Hydromorphone HCl (Dilaudid) 0.5 - 1 mg IVPUSH Q3H PRN PRN Reason: Pain Magnesium Sulfate 2 gm/ Premix 50 mls @ 50 mls/hr IV ONETIME ONE Stop: 01/17/18 10:02 Levothyroxine Sodium (Synthroid) 100 mcg PO ACBREAKFAST [facility] Last Admin: 01/17/18 06:37 Dose: 100 mcg Lorazepam (Ativan) 0 mg IVPUSH Q4H PRN; Protocol PRN Reason: CIWAA Ondansetron HCl (Zofran) 4 mg IVPUSH Q4H PRN PRN Reason: Nausea Oxycodone/Acetaminophen (Percocet 325-5 Mg) 1 - 2 tab PO Q4H PRN PRN Reason: Pain Last Admin: 01/16/18 22:24 Dose: 2 tab Paroxetine HCl (Paxil) 20 mg PO DAILY [facility] Last Admin: 01/16/18 08:09 Dose: 20 mg Polyethylene Glycol (Miralax) 17 gm PO BEDTIME PRN PRN Reason: Constipation Sodium Chloride (Saline Flush) 10 ml FLUSH ASDIRECTED PRN PRN Reason: Keep Vein Open Sodium Chloride (Saline Flush) 2.5 ml FLUSH ASDIRECTED PRN PRN Reason: Keep Vein Open Sodium Phosphate (Neutra-Phos) 250 mg PO QID [facility] Stop: 01/18/18 06:01 Thiamine HCl (Vitamin B-1) 100 mg IV DAILY [facility] Last Admin: 01/16/18 08:09 Dose: 100 mg Discontinued Medications Albuterol (Proventil Hfa) Confirm Administered Dose 6.7 gm INH .STK-MED ONE Stop: 01/15/18 16:11 Albuterol/Ipratropium (Duoneb 3.0-0.5 Mg/3 Ml) 3 ml NEB ONETIME ONE Stop: 01/15/18 16:27 Last Admin: 01/15/18 18:27 Dose: 3 ml Ephedrine Sulfate (Ephedrine Sulfate) Confirm Administered Dose 50 mg .ROUTE .STK-MED ONE Stop: 01/15/18 16:09 Fentanyl (Sublimaze) Confirm Administered Dose 250 mcg .ROUTE .STK-MED ONE Stop: 01/15/18 15:20 Fentanyl (Sublimaze) Confirm Administered Dose 100 mcg .ROUTE .STK-MED ONE Stop: 01/15/18 16:49 Fentanyl (Sublimaze) 50 mcg IVPUSH Q5M PRN PRN Reason: Pain (severe 7-10) Stop: 01/16/18 18:22 Glycopyrrolate (Robinul) Confirm Administered Dose 0.4 mg .ROUTE .STK-MED ONE Stop: 01/15/18 16:36 Hydromorphone HCl (Dilaudid Manager Erp 6 Mg In Ns 30 Ml) 0 mg IV ASDIRECTED PRN; Protocol PRN Reason: Pain Last Admin: 01/15/18 18:32 Dose: 6 mg Cefazolin Sodium/Dextrose 1 gm (/ Premix) 50 mls @ 100 mls/hr IV Q8H ONE Stop: 01/15/18 12:29 Last Admin: 01/15/18 19:53 Dose: Not Given Lactated Ringer's (Ringers, Lactated) 1,000 mls @ 125 mls/hr IV ASDIRECTED [facility] Last Admin: 01/15/18 09:15 Dose: 125 mls/hr Lactated Ringer's (Ringers, Lactated) 1,000 mls @ 75 mls/hr IV ASDIRECTED [facility] Last Admin: 01/16/18 01:27 Dose: 75 mls/hr Cefazolin Sodium/Dextrose 1 gm (/ Premix) 50 mls @ 100 mls/hr IV Q8H [facility] Stop: 01/16/18 13:29 Last Admin: 01/16/18 12:51 Dose: 100 mls/hr Magnesium Sulfate 2 gm/ Premix 50 mls @ 50 mls/hr IV ONETIME ONE Stop: 01/16/18 08:33 Last Admin: 01/16/18 08:08 Dose: 50 mls/hr Iopamidol (Isovue Multipack-370 (76%)) 75 ml IVPUSH ONETIME [facility] Stop: 01/15/18 14:51 Last Admin: 01/15/18 14:51 Dose: 75 ml Ipratropium Todd (Atrovent Hfa) Confirm Administered Dose 12.9 gm .ROUTE .STK -MED ONE Stop: 01/15/18 16:11 Levothyroxine Sodium (Synthroid) 100 mcg PO DAILY [facility] Last Admin: 01/16/18 12:57 Dose: Not Given Lidocaine (Xylocaine-Mpf 2%) Confirm Administered Dose 5 ml .ROUTE .STK-MED ONE Stop: 01/15/18 15:20 Midazolam HCl (Versed 1 Mg/Ml) Confirm Administered Dose 2 mg .ROUTE .STK-MED ONE Stop: 01/15/18 15:20 Morphine Sulfate (Morphine) 2 mg IVPUSH ONETIME ONE Stop: 01/15/18 04:26 Last Admin: 01/15/18 04:35 Dose: 2 mg Morphine Sulfate (Morphine) 2 mg IVPUSH ONETIME ONE Stop: 01/15/18 05:18 Last Admin: 01/15/18 05:27 Dose: 2 mg Morphine Sulfate (Morphine) 2 mg IVPUSH ONETIME ONE Stop: 01/15/18 06:24 Last Admin: 01/15/18 06:28 Dose: 2 mg Morphine Sulfate (Morphine) 2 mg IVPUSH ONETIME ONE Stop: 01/15/18 07:02 Last Admin: 01/15/18 07:31 Dose: 2 mg Morphine Sulfate (Morphine) 2 mg IVPUSH Q2H PRN PRN Reason: pain Last Admin: 01/15/18 13:05 Dose: 2 mg Neostigmine Methylsulfate (Neostigmine) Confirm Administered Dose 5 mg .ROUTE .STK-MED ONE Stop: 01/15/18 16:36 Ondansetron HCl (Zofran) 4 mg IVPUSH ONETIME ONE Stop: 01/15/18 04:26 Last Admin: 01/15/18 04:36 Dose: 4 mg Ondansetron HCl (Zofran) Confirm Administered Dose 4 mg .ROUTE .STK-MED ONE Stop: 01/15/18 15:20 Propofol (Diprivan 20 Ml) Confirm Administered Dose 200 mg .ROUTE .STK-MED ONE Stop: 01/15/18 15:20 Rocuronium Todd (Zemuron) Confirm Administered Dose 100 mg .ROUTE .STK-MED ONE Stop: 01/15/18 15:20 Succinylcholine Chloride (Quelicin) Confirm Administered Dose 200 mg .ROUTE .STK -MED ONE Stop: 01/15/18 15:20 Sugammadex Sodium (Bridion) Confirm Administered Dose 200 mg .ROUTE .STK-MED ONE Stop: 01/15/18 16:41 Tranexamic Acid (Cyklokapron) Confirm Administered Dose 2,000 mg .ROUTE .STK- MED ONE Stop: 01/15/18 16:16 - Problem List & Annotations (1) Hip fracture SNOMED Code(s): 817064713 Code(s): S72.009A - FRACTURE OF UNSP PART OF NECK OF UNSP FEMUR, INIT Status: Acute Current Visit: Yes Qualifiers: Encounter type: initial encounter Fracture type: closed Laterality: left Qualified Code(s): S72.002A - Fracture of unspecified part of neck of left femur, initial encounter for closed fracture - My Orders Last 24 Hours: Active Orders 24 hr Category Date Time Status Incentive Spirometry [RT Incentive Spirometry] [] Care 01/16/18 08:55 Active ASDIRECTED Remove Schmidt Catheter [Urinary Catheter Removal] [] Care 01/16/18 20:02 Active Per Unit Routine PT Evaluation and Treatment [CONS] Routine Cons 01/16/18 09:00 Active BASIC METABOLIC PANEL,BMP [CHEM] AM Lab 01/18/18 05:11 Ordered CBC WITH AUTO DIFF [HEME] AM Lab 01/18/18 05:11 Ordered MAGNESIUM [CHEM] AM Lab 01/18/18 05:11 Ordered PHOSPHORUS [CHEM] AM Lab 01/18/18 05:11 Ordered Benzocaine/Cetylpyrd/Menthol [Cepacol Sore Throat] Med 01/16/18 09:27 Active 1 lozenge MUCMEM 6XDAY PRN Bisacodyl [Dulcolax] Med 01/17/18 09:04 Active 10 mg RECTAL DAILY PRN Docusate Sodium [Colace] Med 01/17/18 09:15 Active 100 mg PO BID Enoxaparin [Lovenox] Med 01/16/18 21:00 Active 40 mg SUBCUT Q24H Folic Acid Med 01/16/18 09:00 Active 1 mg SUBCUT DAILY HYDROmorphone [Dilaudid] Med 01/16/18 09:36 Active 0.5 - 1 mg IVPUSH Q3H PRN Magnesium Sulfate/Water [Magnesium Sulfate 2 GM in Med 01/17/18 09:03 Active Water 50 ML] 2 gm Premix Bag 1 bag IV ONETIME PARoxetine [Paxil] Med 01/16/18 09:00 Active 20 mg PO DAILY Phosphorus #1 [Neutra-Phos] Med 01/17/18 12:00 Active 250 mg PO QID Polyethylene Glycol 3350 [MiraLAX] Med 01/17/18 09:04 Active 17 gm PO BEDTIME PRN Thiamine [Vitamin B-1] Med 01/16/18 09:00 Active 100 mg IV DAILY Medication Orders Benzocaine/Menthol (Cepacol Sore Throat) 1 lozenge MUCMEM 6XDAY PRN PRN Reason: Sore Throat Bisacodyl (Dulcolax) 10 mg RECTAL DAILY PRN PRN Reason: Constipation Docusate Sodium (Colace) 100 mg PO BID [facility] Enoxaparin Sodium (Lovenox) 40 mg SUBCUT Q24H [facility] Last Admin: 01/16/18 22:01 Dose: 40 mg Folic Acid (Folic Acid) 1 mg SUBCUT DAILY [facility] Last Admin: 01/16/18 08:10 Dose: 1 mg Hydromorphone HCl (Dilaudid) 0.5 - 1 mg IVPUSH Q3H PRN PRN Reason: Pain Magnesium Sulfate 2 gm/ Premix 50 mls @ 50 mls/hr IV ONETIME ONE Stop: 01/17/18 10:02 Levothyroxine Sodium (Synthroid) 100 mcg PO ACBREAKFAST [facility] Last Admin: 01/17/18 06:37 Dose: 100 mcg Admin: 01/16/18 12:35 Dose: 100 mcg Lorazepam (Ativan) 0 mg IVPUSH Q4H PRN; Protocol PRN Reason: CIWAA Ondansetron HCl (Zofran) 4 mg IVPUSH Q4H PRN PRN Reason: Nausea Oxycodone/Acetaminophen (Percocet 325-5 Mg) 1 - 2 tab PO Q4H PRN PRN Reason: Pain Last Admin: 01/16/18 22:24 Dose: 2 tab Admin: 01/16/18 17:51 Dose: 2 tab Admin: 01/16/18 08:58 Dose: 2 tab Paroxetine HCl (Paxil) 20 mg PO DAILY [facility] Last Admin: 01/16/18 08:09 Dose: 20 mg Polyethylene Glycol (Miralax) 17 gm PO BEDTIME PRN PRN Reason: Constipation Sodium Chloride (Saline Flush) 10 ml FLUSH ASDIRECTED PRN PRN Reason: Keep Vein Open Sodium Chloride (Saline Flush) 2.5 ml FLUSH ASDIRECTED PRN PRN Reason: Keep Vein Open Sodium Phosphate (Neutra-Phos) 250 mg PO QID [facility] Stop: 01/18/18 06:01 Thiamine HCl (Vitamin B-1) 100 mg IV DAILY [facility] Last Admin: 01/16/18 08:09 Dose: 100 mg - Plan Plan (Free Text/Narrative):: 6/13/18 late entry 01/16/18 1730 patient seen and examined. Sitting up in chair. Has been up with PT. Pain controlled. No other complaints. hgb stable. VSS, afeb Dressing intact. No calf TTP. NVI POD #1 1. continue PT and posterior hip precautions 2. medicine is following 3. possible d/c to [facility] in next few days rrk
--- NOTE | 2018-01-16 09:31 | CR ---
EXAM DATE: 01/15/18 PATIENT'S AGE: 67 Patient: RAMIRO LAW Facility: [place], [place] Site . Site : 1950 Study: XRay Chest [id number]/11/2018 5:11:04 AM Ordering Physician: Doctor Gutierrez Final Report: Indication: Fall. Technique: Chest 1 view Comparison: None Findings/Impression: Cardiovascular and mediastinum: Cardiomegaly. An ovoid right retrocardiac density which could be related to atrial enlargement. Recommend followup with PA and lateral views. An unfolded aorta. Lungs and pleural space: Lungs are clear. No sign of infiltrate or mass. No sign of pleural effusion. No pneumothorax. Bones and soft tissues: A mild focal deformity of the anterior right 7th ribs could be chronic. Correlate for focal tenderness. Dictated by Sriram Maddox MD @ 01/15/2018 6:23:14 AM Dictated by: Sriram Maddox MD @ 01/15/2018 06:23:19 (Electronic Signature) Report Signed by Proxy. JAVIER
--- NOTE | 2018-01-16 09:32 | CR ---
EXAM DATE: 01/15/18 PATIENT'S AGE: 67 Patient: RAMIRO LAW Facility: [place], [place] Site . Site : 1950 Study: XRay Hip Left [id number]/11/2018 5:11:52 AM Ordering Physician: Donovan Eden Final Report: Indication: Fall Technique: A frontal view of the pelvis and two views of the left hip Comparison: None available Findings: Bones: A fracture deformity of the left femoral neck and fracture lucencies involving the greater trochanter. No dislocation. Joint spaces: Unremarkable. Soft tissues: Unremarkable. Impression: Left femoral neck and greater trochanteric fractures. Correlate with additional views to evaluate extent of intertrochanteric involvement. Dictated by Sriram Maddox MD @ 01/15/2018 6:26:16 AM Dictated by: Sriram Maddox MD @ 01/15/2018 06:26:23 (Electronic Signature) Report Signed by Proxy. JAVIER
[2018-01-16] MEDS ORDERED: HYDROmorphone 2 MG/ML SDV IVPUSH PRN (09:36)
--- NOTE | 2018-01-16 09:42 | CR ---
EXAM DATE: 01/15/18 PATIENT'S AGE: 67 Patient: RMAIRO LAW Facility: [place], [place] Site . Site : 1950 Study: XRay Pelvis [id number]/11/2018 9:02:20 AM Ordering Physician: Donovan Eden Final Report: Indication: Fracture Technique: Pelvis 1 view Comparison: January 15, 2018 at 0448 hours Findings: Bones: Again demonstrated is a fracture in the transcervical and intratrochanteric region of the left femur. This is unchanged compared to the earlier AP pelvis image. No new osseous abnormality. Joint spaces: Unremarkable. Soft tissues: Unremarkable. Dictated by Pablo Andres MD @ Jan 15 2018 9:18AM (Electronic Signature) Report Signed by Proxy. JAVIER
--- NOTE | 2018-01-16 09:43 | CT ---
EXAM DATE: 01/15/18 PATIENT'S AGE: 67 Patient: RAMIRO LAW Facility: [place], [place] Site . Site : 1950 Study: CT Chest Angio [id number]/11/2018 2:54:30 PM Ordering Physician: Robbie Paul Final Report: INDICATION: Retrocardiac density. Cardiomyopathy. CT CHEST WITH CONTRAST TECHNIQUE: Multidetector CT imaging was performed through the chest following intravenous contrast administration using 75 mL Isovue 370. Coronal and sagittal reconstructions were generated. COMPARISON: 01/15/2018 chest radiograph. FINDINGS: Lungs and airways: Several scattered areas of subsegmental atelectasis and/or linear scarring in both lungs. No confluent infiltrates typical for pneumonia. Central airways are patent. No hilar lymphadenopathy. Pleura and pleural spaces: No pleural effusions or pneumothorax. Heart and mediastinum: Mild cardiomegaly. No significant pericardial effusion. No mediastinal lymphadenopathy. Vascular structures: Normal caliber aorta without evidence of dissection. Mild coronary artery calcifications. Chest wall and axillae: No mass or axillary lymphadenopathy. Osseous structures: Old healed fractures of the anterior right 7th rib and of the posterior left 10th rib. No acute fractures identified. Spinal degenerative changes. Upper abdomen: Fatty infiltration of the liver. Colon diverticulosis. IMPRESSION: 1. Scattered bilateral areas of subsegmental atelectasis and/or linear scarring. 2. Mild cardiomegaly. 3. Nonacute additional findings as detailed above. ABY MCLEAN MD [employer] Dictated by Zoran Mclean MD @ 01/15/2018 3:52:35 PM Dictated by: Zoran Mclean MD @ 01/15/2018 15:53:31 (Electronic Signature) Report Signed by Proxy. [facility]
--- NOTE | 2018-01-16 09:57 | OR ---
SURGEON: Julita Cotto MD DATE OF PROCEDURE: 01/15/2018 PREOPERATIVE DIAGNOSIS: Left femoral neck fracture, displaced. POSTOPERATIVE DIAGNOSIS: Left femoral neck fracture, displaced. PROCEDURE: Left hip hemiarthroplasty. PROOF TESTER: Karen Mitchell PA-C ANESTHESIA: General. ESTIMATED BLOOD LOSS: 300 mL. TOURNIQUET TIME: 0 minutes. COMPLICATIONS: None. DVT PROPHYLAXIS: PAS boot to the nonoperative leg. IMPLANTS USED: [employer] Secur-FIT max 132 degree neck angle hip stem size 7, 28 mm head with +0 offset, and 45 mm bipolar component. BRIEF HISTORY: Julianna is a 67-year-old female who sustained a fall early this morning. She was evaluated in the emergency room. X-rays showed a displaced femoral neck fracture. She did undergo preoperative medical evaluation and was cleared for surgical treatment. The risks and goals of the procedure were discussed with the patient and were documented preoperatively. She agreed to proceed. DESCRIPTION OF PROCEDURE: The patient was properly identified and brought to the operating room. General anesthesia was administered on her bed. After adequate anesthesia was obtained, she was transferred to the operating room table. She was then placed in a lateral position with the left side elevated. An axillary roll was placed. Care was taken to pad all bony prominences. A pegboard was used to secure her in the lateral position. The left lower extremity was then prepped in standard fashion using ChloraPrep solution. It was then sterilely draped. A time-out was performed to ensure correct site and procedure. Preoperative antibiotics were given. The surgical site had been marked preoperatively. An incision was made centered over the tip of the greater trochanter. Subcutaneous tissues were incised down to the level of the fascia. The ileotibial band fascia and TFL was then incised and split in a lengthwise manner. A Charnley retractor was then placed beneath the fascial plane. She did have extensive hemorrhagic bursitis in this area as well. Once we had adequate exposure of the greater trochanter, the hip was then internally rotated. The piriformis was identified and this was released from the femur. An Ethibond stitch was placed through the piriformis for reattachment later. There was a split in the capsule. This was further incised and the soft tissue was cleared from the femoral neck. The lesser trochanter was palpated. A saw was used to make a cut through the neck approximately 1 fingerbreadth proximal to the lesser trochanter. The pieces of bone were then removed. The head was then excised. This was sized on the back table and it was felt that a size 45 was appropriate. The acetabulum was inspected. No significant degenerative changes were noted. No bony fragments were appreciated. A 45 mm femoral head trial was then placed. It was felt that this was adequate. The trial was then removed. The femur was then internally rotated. A box cutting osteotome was used to open the femoral canal. A canal-finding awl was then placed. A lateralizer was used to open a portion of the greater trochanter laterally. Reamers were sequentially used up to a size 7. I then sequentially broached. It was felt that the 7 broach had a good fit. We then used a 0 neck with a 45 mm head and the hip was reduced. Intraoperative x-rays confirmed adequate length of the femur with good fit of the broach trial. Trial instrumentation was then removed. The femur was copiously irrigated with saline solution using a [employer] faculty research physician. The femoral stem was then placed and malleted into position with slight anteversion as was broached. It was impacted to the level of the neck cut. The neck was then cleared of soft tissue and cleaned. The head and bipolar component were then impacted. The hip was reduced. It was taken through a range of motion. She had no tightness with extension. She was brought to 90 degrees of forward flexion. I was able to adduct her and internally rotate her to over 45 degrees before any signs of instability were noted. This was similar to the range of motion that we had with the trials. The wound was then copiously irrigated with saline solution. The capsule was reapproximated using 0 Ethibond. The piriformis was then reattached to the greater trochanter. The bone within her greater trochanter was quite soft and I was able to easily pass the needle through this. The leg was kept in abducted position as the fascial layer was closed with 0 Vicryl, the subcutaneous tissue was closed with 2-0 Vicryl, and the skin was closed with galen. Xeroform gauze was placed over the wound and a bulky dressing was applied. She was placed into an abduction pillow. She was awakened from her anesthetic and transferred back to the operating room cart. She was brought to recovery room in stable condition. All needle and sponge counts were correct. TAYLOR / LANA /[id number] MTDD
--- NOTE | 2018-01-16 10:14 | CR ---
EXAM DATE: 01/15/18 PATIENT'S AGE: 67 Patient: RAMIRO LAW Facility: [place], [place] Site . Site : 1950 Study: XRay Pelvis [id number]/11/2018 5:18:02 PM Ordering Physician: Robbie Paul Final Report: INDICATION: Intraoperative study, left hip arthroplasty. TECHNIQUE: Pelvis radiograph 1 view COMPARISON: 01/15/2018 at 8:44 a.m., preoperative study. FINDINGS: Single intraoperative image of the pelvis. Left hip arthroplasty in process with femoral component only. No hardware complication evident at this stage of surgical procedure. Contrast opacifies the bladder. Limited evaluation of the right hip. IMPRESSION: 1. Interrupts study. Left hip arthroplasty procedure in process. Dictated by Wilbert Pedro MD @ 01/15/2018 6:52:25 PM Dictated by: Wilbert Pedro MD @ 01/15/2018 18:52:32 (Electronic Signature) Report Signed by Proxy. JAVIER
--- NOTE | 2018-01-16 10:33 | CR ---
EXAM DATE: 01/15/18 PATIENT'S AGE: 67 Patient: RAMIRO LAW Facility: [place], [place] Site . Site : 1950 Study: XRay Hip Right w/ pelvis [id number]/11/2018 7:22:15 PM Ordering Physician: Robbie Paul Final Report: INDICATION: Postop, left hip arthroplasty. TECHNIQUE: AP pelvis and lateral view left hip. Total of 2 images. COMPARISON: Intraoperative study earlier on 01/15/2018. FINDINGS: Interval completion of left hip arthroplasty. Hardware in anatomic alignment. Soft tissue air with surgical skin galen lateral to the left hip, compatible with postoperative status. Schmidt catheter with decreased contrast opacification of the bladder. Mild degenerative changes of right hip. IMPRESSION: 1. Left hip arthroplasty. Expected postoperative findings. Dictated by Wilbert Pedro MD @ 01/15/2018 10:24:28 PM Dictated by: Wilbert Pedro MD @ 01/15/2018 22:24:42 (Electronic Signature) Report Signed by Proxy. JAVIER
[2018-01-16] MEDS: Levothyroxine 100 MCG Tab PO SCH (12:35)
--- NOTE | 2018-01-16 13:43 | ECHO ---
EXAM DATE: 01/15/18 PATIENT'S AGE: 67 The echocardiogram report can be seen in this patient's EMR (Electronic Medical Record) in the Reports section. The report has also been scanned into PACs. JAVIER
[2018-01-16] MEDS: Enoxaparin 40 MG/0.4 ML Syringe SUBCUT SCH (22:01)
[2018-01-17 06:08] LABS: CHLORIDE,CL 98 mmol/L (98-107); SODIUM,NA 134 mmol/L (136-145)
[2018-01-17] MEDS: Levothyroxine 100 MCG Tab PO SCH (06:37)
--- NOTE | 2018-01-17 09:02 | PCM.PN ---
- General Info Date of Service: 01/17/18 Admission Dx/Problem (Free Text): Admission Diagnosis/Problem Admission Diagnosis/Problem Hip fracture, intertrochanteric Subjective Update: SItting up in the chair today, feeling better than yesterday. reports moving alot better today and pain is controlled. No chest pain or SOB. Would like to go to SNF for short term rehabilitation to get back on her feet. Functional Status: Reports: Pain Controlled, Tolerating Diet, Ambulating, Urinating - Review of Systems General: Reports: No Symptoms. Denies: Fever, Weakness, Fatigue HEENT: Reports: Sore Throat (improving). Denies: Headaches Pulmonary: Reports: No Symptoms. Denies: Shortness of Breath Cardiovascular: Reports: No Symptoms. Denies: Chest Pain Gastrointestinal: Reports: No Symptoms. Denies: Abdominal Pain, Nausea, Vomiting Genitourinary: Reports: No Symptoms. Denies: Dysuria, Frequency, Burning Skin: Reports: No Symptoms Neurological: Reports: No Symptoms Psychiatric: Reports: No Symptoms - Patient Data Vitals - Most Recent: Last Vital Signs Temp 97.1 F 01/17/18 04:00 Pulse 80 01/17/18 04:00 Resp 16 01/17/18 04:00 BP 119/60 01/17/18 04:00 Pulse Ox 91 L 01/17/18 04:00 Weight - Most Recent: 63 kg I&O - Last 24 Hours: Intake & Output 01/16/18 01/17/18 01/17/18 22:59 06:59 14:59 Intake Total 700 400 Output Total 1020 1070 Balance -320 -670 Lab Results Last 24 Hours: Laboratory Results - last 24 hr 01/17/18 01/17/18 Range/Units 05:17 05:17 WBC 8.36 (4.0-11.0) K/uL RBC 3.31 L (4.30-5.90) M/uL Hgb 10.1 L (12.0-16.0) g/dL Hct 32.1 L (36.0-46.0) % MCV 97.0 (80.0-98.0) fL MCH 30.5 (27.0-32.0) pg MCHC 31.5 (31.0-37.0) g/dL RDW Std Deviation 53.3 (28.0-62.0) fl RDW Coeff of Mallory 15 (11.0-15.0) % Plt Count 208 (150-400) K/uL MPV 10.80 (7.40-12.00) fL Neut % (Auto) 69.0 (48.0-80.0) % Lymph % (Auto) 17.3 (16.0-40.0) % Canyon % (Auto) 10.4 (0.0-15.0) % Eos % (Auto) 2.9 (0.0-7.0) % Baso % (Auto) 0.4 (0.0-1.5) % Neut # (Auto) 5.8 H (1.4-5.7) K/uL Lymph # (Auto) 1.5 (0.6-2.4) K/uL Canyon # (Auto) 0.9 H (0.0-0.8) K/uL Eos # (Auto) 0.2 (0.0-0.7) K/uL Baso # (Auto) 0.0 (0.0-0.1) K/uL Nucleated RBC % 0.0 /100WBC Nucleated RBCs # 0 K/uL Sodium 134 L (136-145) mmol/L Potassium 3.5 (3.5-5.1) mmol/L Chloride 98 (98-107) mmol/L Carbon Dioxide 30.8 (21.0-32.0) mmol/L BUN 6 L (7.0-18.0) mg/dL Creatinine 0.8 (0.6-1.0) mg/dL Est Cr Clr Drug Dosing 52.90 mL/min Estimated GFR (MDRD) > 60.0 ml/min Glucose 102 (74-106) mg/dL Calcium 8.4 L (8.5-10.1) mg/dL Phosphorus 2.3 L (2.6-4.7) mg/dL Magnesium 1.7 L (1.8-2.4) mg/dL Med Orders - Current: Current Medications Benzocaine/Menthol (Cepacol Sore Throat) 1 lozenge MUCMEM 6XDAY PRN PRN Reason: Sore Throat Enoxaparin Sodium (Lovenox) 40 mg SUBCUT Q24H TIMOTHY Last Admin: 01/16/18 22:01 Dose: 40 mg Folic Acid (Folic Acid) 1 mg SUBCUT DAILY [facility] Last Admin: 01/16/18 08:10 Dose: 1 mg Hydromorphone HCl (Dilaudid) 0.5 - 1 mg IVPUSH Q3H PRN PRN Reason: Pain Levothyroxine Sodium (Synthroid) 100 mcg PO ACBREAKFAST [facility] Last Admin: 01/17/18 06:37 Dose: 100 mcg Lorazepam (Ativan) 0 mg IVPUSH Q4H PRN; Protocol PRN Reason: CIWAA Ondansetron HCl (Zofran) 4 mg IVPUSH Q4H PRN PRN Reason: Nausea Oxycodone/Acetaminophen (Percocet 325-5 Mg) 1 - 2 tab PO Q4H PRN PRN Reason: Pain Last Admin: 01/16/18 22:24 Dose: 2 tab Paroxetine HCl (Paxil) 20 mg PO DAILY [facility] Last Admin: 01/16/18 08:09 Dose: 20 mg Sodium Chloride (Saline Flush) 10 ml FLUSH ASDIRECTED PRN PRN Reason: Keep Vein Open Sodium Chloride (Saline Flush) 2.5 ml FLUSH ASDIRECTED PRN PRN Reason: Keep Vein Open Thiamine HCl (Vitamin B-1) 100 mg IV DAILY [facility] Last Admin: 01/16/18 08:09 Dose: 100 mg Discontinued Medications Albuterol (Proventil Hfa) Confirm Administered Dose 6.7 gm INH .STK-MED ONE Stop: 01/15/18 16:11 Albuterol/Ipratropium (Duoneb 3.0-0.5 Mg/3 Ml) 3 ml NEB ONETIME ONE Stop: 01/15/18 16:27 Last Admin: 01/15/18 18:27 Dose: 3 ml Ephedrine Sulfate (Ephedrine Sulfate) Confirm Administered Dose 50 mg .ROUTE .STK-MED ONE Stop: 01/15/18 16:09 Fentanyl (Sublimaze) Confirm Administered Dose 250 mcg .ROUTE .STK-MED ONE Stop: 01/15/18 15:20 Fentanyl (Sublimaze) Confirm Administered Dose 100 mcg .ROUTE .STK-MED ONE Stop: 01/15/18 16:49 Fentanyl (Sublimaze) 50 mcg IVPUSH Q5M PRN PRN Reason: Pain (severe 7-10) Stop: 01/16/18 18:22 Glycopyrrolate (Robinul) Confirm Administered Dose 0.4 mg .ROUTE .STK-MED ONE Stop: 01/15/18 16:36 Hydromorphone HCl (Dilaudid Sticker Operator 6 Mg In Ns 30 Ml) 0 mg IV ASDIRECTED PRN; Protocol PRN Reason: Pain Last Admin: 01/15/18 18:32 Dose: 6 mg Cefazolin Sodium/Dextrose 1 gm (/ Premix) 50 mls @ 100 mls/hr IV Q8H ONE Stop: 01/15/18 12:29 Last Admin: 01/15/18 19:53 Dose: Not Given Lactated Ringer's (Ringers, Lactated) 1,000 mls @ 125 mls/hr IV ASDIRECTED [facility] Last Admin: 01/15/18 09:15 Dose: 125 mls/hr Lactated Ringer's (Ringers, Lactated) 1,000 mls @ 75 mls/hr IV ASDIRECTED [facility] Last Admin: 01/16/18 01:27 Dose: 75 mls/hr Cefazolin Sodium/Dextrose 1 gm (/ Premix) 50 mls @ 100 mls/hr IV Q8H TIMOTHY Stop: 01/16/18 13:29 Last Admin: 01/16/18 12:51 Dose: 100 mls/hr Magnesium Sulfate 2 gm/ Premix 50 mls @ 50 mls/hr IV ONETIME ONE Stop: 01/16/18 08:33 Last Admin: 01/16/18 08:08 Dose: 50 mls/hr Iopamidol (Isovue Multipack-370 (76%)) 75 ml IVPUSH ONETIME STA Stop: 01/15/18 14:51 Last Admin: 01/15/18 14:51 Dose: 75 ml Ipratropium N[place] (Atrovent Hfa) Confirm Administered Dose 12.9 gm .ROUTE .STK -MED ONE Stop: 01/15/18 16:11 Levothyroxine Sodium (Synthroid) 100 mcg PO DAILY [facility] Last Admin: 01/16/18 12:57 Dose: Not Given Lidocaine (Xylocaine-Mpf 2%) Confirm Administered Dose 5 ml .ROUTE .STK-MED ONE Stop: 01/15/18 15:20 Midazolam HCl (Versed 1 Mg/Ml) Confirm Administered Dose 2 mg .ROUTE .STK-MED ONE Stop: 01/15/18 15:20 Morphine Sulfate (Morphine) 2 mg IVPUSH ONETIME ONE Stop: 01/15/18 04:26 Last Admin: 01/15/18 04:35 Dose: 2 mg Morphine Sulfate (Morphine) 2 mg IVPUSH ONETIME ONE Stop: 01/15/18 05:18 Last Admin: 01/15/18 05:27 Dose: 2 mg Morphine Sulfate (Morphine) 2 mg IVPUSH ONETIME ONE Stop: 01/15/18 06:24 Last Admin: 01/15/18 06:28 Dose: 2 mg Morphine Sulfate (Morphine) 2 mg IVPUSH ONETIME ONE Stop: 01/15/18 07:02 Last Admin: 01/15/18 07:31 Dose: 2 mg Morphine Sulfate (Morphine) 2 mg IVPUSH Q2H PRN PRN Reason: pain Last Admin: 01/15/18 13:05 Dose: 2 mg Neostigmine Methylsulfate (Neostigmine) Confirm Administered Dose 5 mg .ROUTE .STK-MED ONE Stop: 01/15/18 16:36 Ondansetron HCl (Zofran) 4 mg IVPUSH ONETIME ONE Stop: 01/15/18 04:26 Last Admin: 01/15/18 04:36 Dose: 4 mg Ondansetron HCl (Zofran) Confirm Administered Dose 4 mg .ROUTE .STK-MED ONE Stop: 01/15/18 15:20 Propofol (Diprivan 20 Ml) Confirm Administered Dose 200 mg .ROUTE .STK-MED ONE Stop: 01/15/18 15:20 Rocuronium [place] (Zemuron) Confirm Administered Dose 100 mg .ROUTE .STK-MED ONE Stop: 01/15/18 15:20 Succinylcholine Chloride (Quelicin) Confirm Administered Dose 200 mg .ROUTE .STK -MED ONE Stop: 01/15/18 15:20 Sugammadex Sodium (Bridion) Confirm Administered Dose 200 mg .ROUTE .STK-MED ONE Stop: 01/15/18 16:41 Tranexamic Acid (Cyklokapron) Confirm Administered Dose 2,000 mg .ROUTE .STK- MED ONE Stop: 01/15/18 16:16 - Exam General: Alert, Oriented, Cooperative, No Acute Distress Lungs: Clear to Auscultation, Normal Respiratory Effort, Rhonchi (clears with cough) Cardiovascular: Regular Rate, Regular Rhythm GI/Abdominal Exam: Normal Bowel Sounds, Soft, Non-Tender, No Organomegaly, No Distention, No Abnormal Bruit, No Mass, Pelvis Stable Back Exam: Normal Inspection, Full Range of Motion Extremities: Normal Inspection, Normal Range of Motion, Non-Tender, No Pedal Edema, Normal Capillary Refill Wound/Incisions: Dressing Dry and Intact (L hip). No: Erythema Neurological: No New Focal Deficit (tremors improving.) Psy/Mental Status: Alert, Normal Affect, Normal Mood - Problem List & Annotations (1) Femoral neck fracture SNOMED Code(s): 4605341 Code(s): S72.009A - FRACTURE OF UNSP PART OF NECK OF UNSP FEMUR, INIT Status: Acute Current Visit: Yes Qualifiers: Encounter type: initial encounter Fracture type: closed Laterality: left Qualified Code(s): S72.002A - Fracture of unspecified part of neck of left femur, initial encounter for closed fracture (2) Cardiomegaly SNOMED Code(s): 2315400 Code(s): I51.7 - CARDIOMEGALY Status: Acute Current Visit: Yes (3) Tobacco abuse SNOMED Code(s): 783620590 Code(s): Z72.0 - TOBACCO USE Status: Chronic Current Visit: Yes (4) Alcohol abuse SNOMED Code(s): 74487360 Code(s): F10.10 - ALCOHOL ABUSE, UNCOMPLICATED Status: Chronic Current Visit: Yes (5) Depression SNOMED Code(s): 71601889 Code(s): F32.9 - MAJOR DEPRESSIVE DISORDER, SINGLE EPISODE, UNSPECIFIED Status: Chronic Current Visit: Yes (6) Anxiety SNOMED Code(s): 86787917 Code(s): F41.9 - ANXIETY DISORDER, UNSPECIFIED Status: Chronic Current Visit: Yes (7) Hypothyroid SNOMED Code(s): 76304090 Code(s): E03.9 - HYPOTHYROIDISM, UNSPECIFIED Status: Chronic Current Visit: Yes (8) Homeless single person SNOMED Code(s): 529457244 Code(s): Z59.0 - HOMELESSNESS Status: Chronic Current Visit: Yes - Problem List Review Problem List Initiated/Reviewed/Updated: Yes - My Orders Last 24 Hours: My Active Orders 01/16/18 08:55 Incentive Spirometry [RT Incentive Spirometry] [RC] ASDIRECTED 01/16/18 09:00 Folic Acid 1 mg SUBCUT DAILY PARoxetine [Paxil] 20 mg PO DAILY Thiamine [Vitamin B-1] 100 mg IV DAILY 01/18/18 05:11 BASIC METABOLIC PANEL,BMP [CHEM] AM CBC WITH AUTO DIFF [HEME] AM MAGNESIUM [CHEM] AM PHOSPHORUS [CHEM] AM - Plan Plan:: This 67 year old female admitted with L femoral neck fracture 1. Femoral neck fracture: Dr Cotto, Orthopedics consulted. Up with PT, doing better each time. WOuld like SNF for short term rehabilitation. 2. Cardiomegaly: Doing well. Will encourage follow up with PCP as outpatient. 3. Alcohol abuse: Stable. Tremors noted this am, improves in the afternoon. But she reports overall feeling ok. Max CIWA 3, no Ativan needed. Continue to monitor closely. CIWAA protocol with Ativan protocol. Supplement with Thiamine and Folic Acid daily. Magnesium supplemented this am, 2 gm IV. 4. Depression/Anxiety: Stable. Continue Paxil. 5. Hypothryoidism: Stable. Continue Levothyroxine. VTE prophylaxis: Lovenox Dispo: 2-3 days pending placement.
[2018-01-17] MEDS ORDERED: Magnesium Sulfate/Water 2 GM in Premix Bag 1 BAG IV ONE (09:03)
[2018-01-17] MEDS ORDERED: Bisacodyl 10 MG Supp RECTAL PRN (09:04)
--- NOTE | 2018-01-17 09:26 | PCM.SURGPN ---
<Karen Mitchell R - Last Filed: 01/17/18 09:19> - General Info Date of Service: 01/17/18 Date of Surgery/Procedure: 01/15/18 POD#: 2 Functional Status: Reports: Pain Controlled, Tolerating Diet, Ambulating, Urinating - Review of Systems General: Reports: No Symptoms Pulmonary: Reports: No Symptoms. Denies: Shortness of Breath Cardiovascular: Reports: No Symptoms. Denies: Chest Pain Systems Review Comment:: pt up to chair for breakfast reports feeling better today pain continues to be controlled mobilizing easier each time she is up is planning for SNF stay until improved mobility/independence - Patient Data Vitals - Most Recent: Last Vital Signs Temp 97.1 F 01/17/18 04:00 Pulse 80 01/17/18 04:00 Resp 16 01/17/18 04:00 BP 119/60 01/17/18 04:00 Pulse Ox 91 L 01/17/18 04:00 Weight - Most Recent: 63 kg I&O - Last 24 Hours: Intake & Output 01/16/18 01/17/18 01/17/18 22:59 06:59 14:59 Intake Total 700 400 Output Total 1020 1070 Balance -320 -670 Lab Results Last 24 Hrs: Laboratory Results - last 24 hr 01/17/18 01/17/18 Range/Units 05:17 05:17 WBC 8.36 (4.0-11.0) K/uL RBC 3.31 L (4.30-5.90) M/uL Hgb 10.1 L (12.0-16.0) g/dL Hct 32.1 L (36.0-46.0) % MCV 97.0 (80.0-98.0) fL MCH 30.5 (27.0-32.0) pg MCHC 31.5 (31.0-37.0) g/dL RDW Std Deviation 53.3 (28.0-62.0) fl RDW Coeff of Mallory 15 (11.0-15.0) % Plt Count 208 (150-400) K/uL MPV 10.80 (7.40-12.00) fL Neut % (Auto) 69.0 (48.0-80.0) % Lymph % (Auto) 17.3 (16.0-40.0) % [place] % (Auto) 10.4 (0.0-15.0) % Eos % (Auto) 2.9 (0.0-7.0) % Baso % (Auto) 0.4 (0.0-1.5) % Neut # (Auto) 5.8 H (1.4-5.7) K/uL Lymph # (Auto) 1.5 (0.6-2.4) K/uL [place] # (Auto) 0.9 H (0.0-0.8) K/uL Eos # (Auto) 0.2 (0.0-0.7) K/uL Baso # (Auto) 0.0 (0.0-0.1) K/uL Nucleated RBC % 0.0 /100WBC Nucleated RBCs # 0 K/uL Sodium 134 L (136-145) mmol/L Potassium 3.5 (3.5-5.1) mmol/L Chloride 98 (98-107) mmol/L Carbon Dioxide 30.8 (21.0-32.0) mmol/L BUN 6 L (7.0-18.0) mg/dL Creatinine 0.8 (0.6-1.0) mg/dL Est Cr Clr Drug Dosing 52.90 mL/min Estimated GFR (MDRD) > 60.0 ml/min Glucose 102 (74-106) mg/dL Calcium 8.4 L (8.5-10.1) mg/dL Phosphorus 2.3 L (2.6-4.7) mg/dL Magnesium 1.7 L (1.8-2.4) mg/dL Med Orders - Current: Current Medications Benzocaine/Menthol (Cepacol Sore Throat) 1 lozenge MUCMEM 6XDAY PRN PRN Reason: Sore Throat Bisacodyl (Dulcolax) 10 mg RECTAL DAILY PRN PRN Reason: Constipation Docusate Sodium (Colace) [address] [facility] Enoxaparin Sodium (Lovenox) [address] [facility] Last Admin: 01/16/18 22:01 Dose: 40 mg Folic Acid (Folic Acid) [address] [facility] Last Admin: 01/16/18 08:10 Dose: 1 mg Hydromorphone HCl (Dilaudid) 0.5 - 1 mg IVPUSH Q3H PRN PRN Reason: Pain Magnesium Sulfate 2 gm/ Premix 50 mls @ 50 mls/hr IV ONETIME ONE Stop: 01/17/18 10:02 Levothyroxine Sodium (Synthroid) [address] [facility] Last Admin: 01/17/18 06:37 Dose: 100 mcg Lorazepam (Ativan) 0 mg IVPUSH Q4H PRN; Protocol PRN Reason: CIWAA Ondansetron HCl (Zofran) 4 mg IVPUSH Q4H PRN PRN Reason: Nausea Oxycodone/Acetaminophen (Percocet 325-5 Mg) 1 - 2 tab PO Q4H PRN PRN Reason: Pain Last Admin: 01/16/18 22:24 Dose: 2 tab Paroxetine HCl (Paxil) [address] [facility] Last Admin: 01/16/18 08:09 Dose: 20 mg Polyethylene Glycol (Miralax) 17 gm PO BEDTIME PRN PRN Reason: Constipation Sodium Chloride (Saline Flush) 10 ml FLUSH ASDIRECTED PRN PRN Reason: Keep Vein Open Sodium Chloride (Saline Flush) 2.5 ml FLUSH ASDIRECTED PRN PRN Reason: Keep Vein Open Sodium Phosphate (Neutra-Phos) [address] [facility] Stop: 01/18/18 06:01 Thiamine HCl (Vitamin B-1) [address] [facility] Last Admin: 01/16/18 08:09 Dose: 100 mg Discontinued Medications Albuterol (Proventil Hfa) Confirm Administered Dose 6.7 gm INH .STK-MED ONE Stop: 01/15/18 16:11 Albuterol/Ipratropium (Duoneb 3.0-0.5 Mg/3 Ml) 3 ml NEB ONETIME ONE Stop: 01/15/18 16:27 Last Admin: 01/15/18 18:27 Dose: 3 ml Ephedrine Sulfate (Ephedrine Sulfate) Confirm Administered Dose 50 mg .ROUTE .STK-MED ONE Stop: 01/15/18 16:09 Fentanyl (Sublimaze) Confirm Administered Dose 250 mcg .ROUTE .STK-MED ONE Stop: 01/15/18 15:20 Fentanyl (Sublimaze) Confirm Administered Dose 100 mcg .ROUTE .STK-MED ONE Stop: 01/15/18 16:49 Fentanyl (Sublimaze) 50 mcg IVPUSH Q5M PRN PRN Reason: Pain (severe 7-10) Stop: 01/16/18 18:22 Glycopyrrolate (Robinul) Confirm Administered Dose 0.4 mg .ROUTE .STK-MED ONE Stop: 01/15/18 16:36 Hydromorphone HCl (Dilaudid Mixing Machine Tender Cork Rod 6 Mg In Ns 30 Ml) 0 mg IV ASDIRECTED PRN; Protocol PRN Reason: Pain Last Admin: 01/15/18 18:32 Dose: 6 mg Cefazolin Sodium/Dextrose 1 gm (/ Premix) 50 mls @ 100 mls/hr IV Q8H ONE Stop: 01/15/18 12:29 Last Admin: 01/15/18 19:53 Dose: Not Given Lactated Ringer's (Ringers, Lactated) 1,000 mls @ 125 mls/hr IV ASDIRECTED [facility] Last Admin: 01/15/18 09:15 Dose: 125 mls/hr Lactated Ringer's (Ringers, Lactated) 1,000 mls @ 75 mls/hr IV ASDIRECTED [facility] Last Admin: 01/16/18 01:27 Dose: 75 mls/hr Cefazolin Sodium/Dextrose 1 gm (/ Premix) 50 mls @ 100 mls/hr IV Q8H [facility] Stop: 01/16/18 13:29 Last Admin: 01/16/18 12:51 Dose: 100 mls/hr Magnesium Sulfate 2 gm/ Premix 50 mls @ 50 mls/hr IV ONETIME ONE Stop: 01/16/18 08:33 Last Admin: 01/16/18 08:08 Dose: 50 mls/hr Iopamidol (Isovue Multipack-370 (76%)) 75 ml IVPUSH ONETIME STA Stop: 01/15/18 14:51 Last Admin: 01/15/18 14:51 Dose: 75 ml Ipratropium [place] (Atrovent Hfa) Confirm Administered Dose 12.9 gm .ROUTE .STK -MED ONE Stop: 01/15/18 16:11 Levothyroxine Sodium (Synthroid) [address] [facility] Last Admin: 01/16/18 12:57 Dose: Not Given Lidocaine (Xylocaine-Mpf 2%) Confirm Administered Dose 5 ml .ROUTE .STK-MED ONE Stop: 01/15/18 15:20 Midazolam HCl (Versed 1 Mg/Ml) Confirm Administered Dose 2 mg .ROUTE .STK-MED ONE Stop: 01/15/18 15:20 Morphine Sulfate (Morphine) 2 mg IVPUSH ONETIME ONE Stop: 01/15/18 04:26 Last Admin: 01/15/18 04:35 Dose: 2 mg Morphine Sulfate (Morphine) 2 mg IVPUSH ONETIME ONE Stop: 01/15/18 05:18 Last Admin: 01/15/18 05:27 Dose: 2 mg Morphine Sulfate (Morphine) 2 mg IVPUSH ONETIME ONE Stop: 01/15/18 06:24 Last Admin: 01/15/18 06:28 Dose: 2 mg Morphine Sulfate (Morphine) 2 mg IVPUSH ONETIME ONE Stop: 01/15/18 07:02 Last Admin: 01/15/18 07:31 Dose: 2 mg Morphine Sulfate (Morphine) 2 mg IVPUSH Q2H PRN PRN Reason: pain Last Admin: 01/15/18 13:05 Dose: 2 mg Neostigmine Methylsulfate (Neostigmine) Confirm Administered Dose 5 mg .ROUTE .STK-MED ONE Stop: 01/15/18 16:36 Ondansetron HCl (Zofran) 4 mg IVPUSH ONETIME ONE Stop: 01/15/18 04:26 Last Admin: 01/15/18 04:36 Dose: 4 mg Ondansetron HCl (Zofran) Confirm Administered Dose 4 mg .ROUTE .STK-MED ONE Stop: 01/15/18 15:20 Propofol (Diprivan 20 Ml) Confirm Administered Dose 200 mg .ROUTE .STK-MED ONE Stop: 01/15/18 15:20 Rocuronium [place] (Zemuron) Confirm Administered Dose 100 mg .ROUTE .STK-MED ONE Stop: 01/15/18 15:20 Succinylcholine Chloride (Quelicin) Confirm Administered Dose 200 mg .ROUTE .STK -MED ONE Stop: 01/15/18 15:20 Sugammadex Sodium (Bridion) Confirm Administered Dose 200 mg .ROUTE .STK-MED ONE Stop: 01/15/18 16:41 Tranexamic Acid (Cyklokapron) Confirm Administered Dose 2,000 mg .ROUTE .STK- MED ONE Stop: 01/15/18 16:16 - Exam Wound/Incisions: Dressing Dry and Intact. No: Drainage, Erythema General: Alert, Oriented Cardiovascular: Regular Rate, Regular Rhythm Extremities: No Pedal Edema, Other (exam L hip reveals dressing clean/dry, no drainage/erythema. at/ehl/gastroc 5/5, dp 2+, sensation intact distally) Physical Findings Comment:: vss, afeb hgb 10.1 - Problem List Review Problem List Initiated/Reviewed/Updated: Yes - My Orders Last 24 Hours: Active Orders 24 hr Category Date Time Status Incentive Spirometry [RT Incentive Spirometry] [] Care 01/16/18 08:55 Active ASDIRECTED Remove Schmidt Catheter [Urinary Catheter Removal] [] Care 01/16/18 20:02 Active Per Unit Routine PT Evaluation and Treatment [CONS] Routine Cons 01/16/18 09:00 Active BASIC METABOLIC PANEL,BMP [CHEM] AM Lab 01/18/18 05:11 Ordered CBC WITH AUTO DIFF [HEME] AM Lab 01/18/18 05:11 Ordered MAGNESIUM [CHEM] AM Lab 01/18/18 05:11 Ordered PHOSPHORUS [CHEM] AM Lab 01/18/18 05:11 Ordered Benzocaine/Cetylpyrd/Menthol [Cepacol Sore Throat] Med 01/16/18 09:27 Active 1 lozenge MUCMEM 6XDAY PRN Bisacodyl [Dulcolax] Med 01/17/18 09:04 Active 10 mg RECTAL DAILY PRN Docusate Sodium [Colace] Med 01/17/18 09:15 Active 100 mg PO BID Enoxaparin [Lovenox] Med 01/16/18 21:00 Active 40 mg SUBCUT Q24H Folic Acid Med 01/16/18 09:00 Active 1 mg SUBCUT DAILY HYDROmorphone [Dilaudid] Med 01/16/18 09:36 Active 0.5 - 1 mg IVPUSH Q3H PRN Magnesium Sulfate/Water [Magnesium Sulfate 2 GM in Med 01/17/18 09:03 Active Water 50 ML] 2 gm Premix Bag 1 bag IV ONETIME PARoxetine [Paxil] Med 01/16/18 09:00 Active 20 mg PO DAILY Phosphorus #1 [Neutra-Phos] Med 01/17/18 12:00 Active 250 mg PO QID Polyethylene Glycol 3350 [MiraLAX] Med 01/17/18 09:04 Active 17 gm PO BEDTIME PRN Thiamine [Vitamin B-1] Med 01/16/18 09:00 Active 100 mg IV DAILY Medication Orders Benzocaine/Menthol (Cepacol Sore Throat) 1 lozenge MUCMEM 6XDAY PRN PRN Reason: Sore Throat Bisacodyl (Dulcolax) 10 mg RECTAL DAILY PRN PRN Reason: Constipation Docusate Sodium (Colace) [address] [facility] Enoxaparin Sodium (Lovenox) [address] [facility] Last Admin: 01/16/18 22:01 Dose: 40 mg Folic Acid (Folic Acid) [address] [facility] Last Admin: 01/16/18 08:10 Dose: 1 mg Hydromorphone HCl (Dilaudid) 0.5 - 1 mg IVPUSH Q3H PRN PRN Reason: Pain Magnesium Sulfate 2 gm/ Premix 50 mls @ 50 mls/hr IV ONETIME ONE Stop: 01/17/18 10:02 Levothyroxine Sodium (Synthroid) [address] [facility] Last Admin: 01/17/18 06:37 Dose: 100 mcg Admin: 01/16/18 12:35 Dose: 100 mcg Lorazepam (Ativan) 0 mg IVPUSH Q4H PRN; Protocol PRN Reason: CIWAA Ondansetron HCl (Zofran) 4 mg IVPUSH Q4H PRN PRN Reason: Nausea Oxycodone/Acetaminophen (Percocet 325-5 Mg) 1 - 2 tab PO Q4H PRN PRN Reason: Pain Last Admin: 01/16/18 22:24 Dose: 2 tab Admin: 01/16/18 17:51 Dose: 2 tab Admin: 01/16/18 08:58 Dose: 2 tab Paroxetine HCl (Paxil) [address] [facility] Last Admin: 01/16/18 08:09 Dose: 20 mg Polyethylene Glycol (Miralax) 17 gm PO BEDTIME PRN PRN Reason: Constipation Sodium Chloride (Saline Flush) 10 ml FLUSH ASDIRECTED PRN PRN Reason: Keep Vein Open Sodium Chloride (Saline Flush) 2.5 ml FLUSH ASDIRECTED PRN PRN Reason: Keep Vein Open Sodium Phosphate (Neutra-Phos) [address] [facility] Stop: 01/18/18 06:01 Thiamine HCl (Vitamin B-1) [address] [facility] Last Admin: 01/16/18 08:09 Dose: 100 mg - Assessment Assessment (Free Text/Narrative):: POD#2 L hip hemiarthroplasty acute posthemorrhagic anemia - Plan Plan (Free Text/Narrative):: continue pain management continue PT, activity as tolerated with posterior hip precautions Lovenox 40mg subq daily as DVT prophylaxis - recommend continuing x 4 weeks post -op change dressing to Aquacel dressing this afternoon orthopedically stable dispo: transfer to SNF when bed available <Julita Cotto - Last Filed: 01/17/18 15:05> - Patient Data Vitals - Most Recent: Last Vital Signs Temp 99.5 F 01/17/18 12:00 Pulse 87 01/17/18 12:00 Resp 16 01/17/18 12:00 BP 128/66 01/17/18 12:00 Pulse Ox 92 L 01/17/18 12:00 I&O - Last 24 Hours: Intake & Output 01/17/18 01/17/18 01/17/18 06:59 14:59 22:59 Intake Total 400 Output Total 1070 Balance -670 Lab Results Last 24 Hrs: Laboratory Results - last 24 hr 01/17/18 01/17/18 Range/Units 05:17 05:17 WBC 8.36 (4.0-11.0) K/uL RBC 3.31 L (4.30-5.90) M/uL Hgb 10.1 L (12.0-16.0) g/dL Hct 32.1 L (36.0-46.0) % MCV 97.0 (80.0-98.0) fL MCH 30.5 (27.0-32.0) pg MCHC 31.5 (31.0-37.0) g/dL RDW Std Deviation 53.3 (28.0-62.0) fl RDW Coeff of Mallory 15 (11.0-15.0) % Plt Count 208 (150-400) K/uL MPV 10.80 (7.40-12.00) fL Neut % (Auto) 69.0 (48.0-80.0) % Lymph % (Auto) 17.3 (16.0-40.0) % [place] % (Auto) 10.4 (0.0-15.0) % Eos % (Auto) 2.9 (0.0-7.0) % Baso % (Auto) 0.4 (0.0-1.5) % Neut # (Auto) 5.8 H (1.4-5.7) K/uL Lymph # (Auto) 1.5 (0.6-2.4) K/uL [place] # (Auto) 0.9 H (0.0-0.8) K/uL Eos # (Auto) 0.2 (0.0-0.7) K/uL Baso # (Auto) 0.0 (0.0-0.1) K/uL Nucleated RBC % 0.0 /100WBC Nucleated RBCs # 0 K/uL Sodium 134 L (136-145) mmol/L Potassium 3.5 (3.5-5.1) mmol/L Chloride 98 (98-107) mmol/L Carbon Dioxide 30.8 (21.0-32.0) mmol/L BUN 6 L (7.0-18.0) mg/dL Creatinine 0.8 (0.6-1.0) mg/dL Est Cr Clr Drug Dosing 52.90 mL/min Estimated GFR (MDRD) > 60.0 ml/min Glucose 102 (74-106) mg/dL Calcium 8.4 L (8.5-10.1) mg/dL Phosphorus 2.3 L (2.6-4.7) mg/dL Magnesium 1.7 L (1.8-2.4) mg/dL Med Orders - Current: Current Medications Benzocaine/Menthol (Cepacol Sore Throat) 1 lozenge MUCMEM 6XDAY PRN PRN Reason: Sore Throat Bisacodyl (Dulcolax) 10 mg RECTAL DAILY PRN PRN Reason: Constipation Docusate Sodium (Colace) [address] [facility] Last Admin: 01/17/18 09:53 Dose: 100 mg Enoxaparin Sodium (Lovenox) [address] [facility] Last Admin: 01/16/18 22:01 Dose: 40 mg Folic Acid (Folic Acid) [address] [facility] Last Admin: 01/17/18 09:34 Dose: 1 mg Hydromorphone HCl (Dilaudid) 0.5 - 1 mg IVPUSH Q3H PRN PRN Reason: Pain Levothyroxine Sodium (Synthroid) [address] [facility] Last Admin: 01/17/18 06:37 Dose: 100 mcg Lorazepam (Ativan) 0 mg IVPUSH Q4H PRN; Protocol PRN Reason: CIWAA Ondansetron HCl (Zofran) 4 mg IVPUSH Q4H PRN PRN Reason: Nausea Oxycodone/Acetaminophen (Percocet 325-5 Mg) 1 - 2 tab PO Q4H PRN PRN Reason: Pain Last Admin: 01/16/18 22:24 Dose: 2 tab Paroxetine HCl (Paxil) [address] [facility] Last Admin: 01/17/18 09:33 Dose: 20 mg Polyethylene Glycol (Miralax) 17 gm PO BEDTIME PRN PRN Reason: Constipation Sodium Chloride (Saline Flush) 10 ml FLUSH ASDIRECTED PRN PRN Reason: Keep Vein Open Sodium Chloride (Saline Flush) 2.5 ml FLUSH ASDIRECTED PRN PRN Reason: Keep Vein Open Sodium Phosphate (Neutra-Phos) [address] [facility] Stop: 01/18/18 06:01 Last Admin: 01/17/18 12:23 Dose: 250 mg Thiamine HCl (Vitamin B-1) [address] [facility] Last Admin: 01/17/18 09:31 Dose: 100 mg Discontinued Medications Albuterol (Proventil Hfa) Confirm Administered Dose 6.7 gm INH .STK-MED ONE Stop: 01/15/18 16:11 Albuterol/Ipratropium (Duoneb 3.0-0.5 Mg/3 Ml) 3 ml NEB ONETIME ONE Stop: 01/15/18 16:27 Last Admin: 01/15/18 18:27 Dose: 3 ml Ephedrine Sulfate (Ephedrine Sulfate) Confirm Administered Dose 50 mg .ROUTE .STK-MED ONE Stop: 01/15/18 16:09 Fentanyl (Sublimaze) Confirm Administered Dose 250 mcg .ROUTE .STK-MED ONE Stop: 01/15/18 15:20 Fentanyl (Sublimaze) Confirm Administered Dose 100 mcg .ROUTE .STK-MED ONE Stop: 01/15/18 16:49 Fentanyl (Sublimaze) 50 mcg IVPUSH Q5M PRN PRN Reason: Pain (severe 7-10) Stop: 01/16/18 18:22 Glycopyrrolate (Robinul) Confirm Administered Dose 0.4 mg .ROUTE .STK-MED ONE Stop: 01/15/18 16:36 Hydromorphone HCl (Dilaudid Mixing Machine Tender Cork Rod 6 Mg In Ns 30 Ml) 0 mg IV ASDIRECTED PRN; Protocol PRN Reason: Pain Last Admin: 01/15/18 18:32 Dose: 6 mg Cefazolin Sodium/Dextrose 1 gm (/ Premix) 50 mls @ 100 mls/hr IV Q8H ONE Stop: 01/15/18 12:29 Last Admin: 01/15/18 19:53 Dose: Not Given Lactated Ringer's (Ringers, Lactated) 1,000 mls @ 125 mls/hr IV ASDIRECTED [facility] Last Admin: 01/15/18 09:15 Dose: 125 mls/hr Lactated Ringer's (Ringers, Lactated) 1,000 mls @ 75 mls/hr IV ASDIRECTED [facility] Last Admin: 01/16/18 01:27 Dose: 75 mls/hr Cefazolin Sodium/Dextrose 1 gm (/ Premix) 50 mls @ 100 mls/hr IV Q8H [facility] Stop: 01/16/18 13:29 Last Admin: 01/16/18 12:51 Dose: 100 mls/hr Magnesium Sulfate 2 gm/ Premix 50 mls @ 50 mls/hr IV ONETIME ONE Stop: 01/16/18 08:33 Last Admin: 01/16/18 08:08 Dose: 50 mls/hr Magnesium Sulfate 2 gm/ Premix 50 mls @ 50 mls/hr IV ONETIME ONE Stop: 01/17/18 10:02 Last Admin: 01/17/18 09:52 Dose: 50 mls/hr Iopamidol (Isovue Multipack-370 (76%)) 75 ml IVPUSH ONETIME STA Stop: 01/15/18 14:51 Last Admin: 01/15/18 14:51 Dose: 75 ml Ipratropium [place] (Atrovent Hfa) Confirm Administered Dose 12.9 gm .ROUTE .STK -MED ONE Stop: 01/15/18 16:11 Levothyroxine Sodium (Synthroid) 100 mcg PO DAILY [facility] Last Admin: 01/16/18 12:57 Dose: Not Given Lidocaine (Xylocaine-Mpf 2%) Confirm Administered Dose 5 ml .ROUTE .STK-MED ONE Stop: 01/15/18 15:20 Midazolam HCl (Versed 1 Mg/Ml) Confirm Administered Dose 2 mg .ROUTE .STK-MED ONE Stop: 01/15/18 15:20 Morphine Sulfate (Morphine) 2 mg IVPUSH ONETIME ONE Stop: 01/15/18 04:26 Last Admin: 01/15/18 04:35 Dose: 2 mg Morphine Sulfate (Morphine) 2 mg IVPUSH ONETIME ONE Stop: 01/15/18 05:18 Last Admin: 01/15/18 05:27 Dose: 2 mg Morphine Sulfate (Morphine) 2 mg IVPUSH ONETIME ONE Stop: 01/15/18 06:24 Last Admin: 01/15/18 06:28 Dose: 2 mg Morphine Sulfate (Morphine) 2 mg IVPUSH ONETIME ONE Stop: 01/15/18 07:02 Last Admin: 01/15/18 07:31 Dose: 2 mg Morphine Sulfate (Morphine) 2 mg IVPUSH Q2H PRN PRN Reason: pain Last Admin: 01/15/18 13:05 Dose: 2 mg Neostigmine Methylsulfate (Neostigmine) Confirm Administered Dose 5 mg .ROUTE .STK-MED ONE Stop: 01/15/18 16:36 Ondansetron HCl (Zofran) 4 mg IVPUSH ONETIME ONE Stop: 01/15/18 04:26 Last Admin: 01/15/18 04:36 Dose: 4 mg Ondansetron HCl (Zofran) Confirm Administered Dose 4 mg .ROUTE .STK-MED ONE Stop: 01/15/18 15:20 Propofol (Diprivan 20 Ml) Confirm Administered Dose 200 mg .ROUTE .STK-MED ONE Stop: 01/15/18 15:20 Rocuronium [place] (Zemuron) Confirm Administered Dose 100 mg .ROUTE .STK-MED ONE Stop: 01/15/18 15:20 Succinylcholine Chloride (Quelicin) Confirm Administered Dose 200 mg .ROUTE .STK -MED ONE Stop: 01/15/18 15:20 Sugammadex Sodium (Bridion) Confirm Administered Dose 200 mg .ROUTE .STK-MED ONE Stop: 01/15/18 16:41 Tranexamic Acid (Cyklokapron) Confirm Administered Dose 2,000 mg .ROUTE .STK- MED ONE Stop: 01/15/18 16:16 - Problem List & Annotations (1) Hip fracture SNOMED Code(s): 614154332 Code(s): S72.009A - FRACTURE OF UNSP PART OF NECK OF UNSP FEMUR, INIT Status: Acute Current Visit: Yes Qualifiers: Encounter type: initial encounter Fracture type: closed Laterality: left Qualified Code(s): S72.002A - Fracture of unspecified part of neck of left femur, initial encounter for closed fracture - My Orders Last 24 Hours: Active Orders 24 hr Category Date Time Status BASIC METABOLIC PANEL,BMP [CHEM] AM Lab 01/18/18 05:11 Ordered CBC WITH AUTO DIFF [HEME] AM Lab 01/18/18 05:11 Ordered MAGNESIUM [CHEM] AM Lab 01/18/18 05:11 Ordered PHOSPHORUS [CHEM] AM Lab 01/18/18 05:11 Ordered Bisacodyl [Dulcolax] Med 01/17/18 09:04 Active 10 mg RECTAL DAILY PRN Docusate Sodium [Colace] Med 01/17/18 09:15 Active 100 mg PO BID Enoxaparin [Lovenox] Med 01/16/18 21:00 Active 40 mg SUBCUT Q24H Phosphorus #1 [Neutra-Phos] Med 01/17/18 12:00 Active 250 mg PO QID Polyethylene Glycol 3350 [MiraLAX] Med 01/17/18 09:04 Active 17 gm PO BEDTIME PRN Medication Orders Benzocaine/Menthol (Cepacol Sore Throat) 1 lozenge MUCMEM 6XDAY PRN PRN Reason: Sore Throat Bisacodyl (Dulcolax) 10 mg RECTAL DAILY PRN PRN Reason: Constipation Docusate Sodium (Colace) [address] [facility] Last Admin: 01/17/18 09:53 Dose: 100 mg Enoxaparin Sodium (Lovenox) [address] [facility] Last Admin: 01/16/18 22:01 Dose: 40 mg Folic Acid (Folic Acid) [address] [facility] Last Admin: 01/17/18 09:34 Dose: 1 mg Admin: 01/16/18 08:10 Dose: 1 mg Hydromorphone HCl (Dilaudid) 0.5 - 1 mg IVPUSH Q3H PRN PRN Reason: Pain Levothyroxine Sodium (Synthroid) [address] [facility] Last Admin: 01/17/18 06:37 Dose: 100 mcg Admin: 01/16/18 12:35 Dose: 100 mcg Lorazepam (Ativan) 0 mg IVPUSH Q4H PRN; Protocol PRN Reason: CIWAA Ondansetron HCl (Zofran) 4 mg IVPUSH Q4H PRN PRN Reason: Nausea Oxycodone/Acetaminophen (Percocet 325-5 Mg) 1 - 2 tab PO Q4H PRN PRN Reason: Pain Last Admin: 01/16/18 22:24 Dose: 2 tab Admin: 01/16/18 17:51 Dose: 2 tab Admin: 01/16/18 08:58 Dose: 2 tab Paroxetine HCl (Paxil) [address] [facility] Last Admin: 01/17/18 09:33 Dose: 20 mg Admin: 01/16/18 08:09 Dose: 20 mg Polyethylene Glycol (Miralax) 17 gm PO BEDTIME PRN PRN Reason: Constipation Sodium Chloride (Saline Flush) 10 ml FLUSH ASDIRECTED PRN PRN Reason: Keep Vein Open Sodium Chloride (Saline Flush) 2.5 ml FLUSH ASDIRECTED PRN PRN Reason: Keep Vein Open Sodium Phosphate (Neutra-Phos) [address] [facility] Stop: 01/18/18 06:01 Last Admin: 01/17/18 12:23 Dose: 250 mg Thiamine HCl (Vitamin B-1) [address] [facility] Last Admin: 01/17/18 09:31 Dose: 100 mg Admin: 01/16/18 08:09 Dose: 100 mg - Plan Plan (Free Text/Narrative):: 1400 Patent seen and examined. Agree with above note. Patient states pain well controlled. Progressing with PT. Pain on po meds for pain only. Hgb stable. VSS, afeb Dressing intact. No calf TTP. NVI. POD #2 1. continue PT 2. po meds for pain 3. SCD/Lovenox for DVT prophylaxis 4. ok from ortho standpoint to d/c to [facility]
[2018-01-17] MEDS: Thiamine 200 MG/2 ML MDV IV SCH (09:31)
[2018-01-17] MEDS: PARoxetine 20 MG Tab PO SCH (09:33)
[2018-01-17] MEDS: Folic Acid 50 MG/10 ML MDV SUBCUT SCH (09:34)
[2018-01-17] MEDS: Docusate Sodium 100 MG Cap PO SCH ×2 (09:53→21:27)
[2018-01-17] MEDS: Phosphorus #1 250 MG Tab PO SCH ×3 (12:23→23:24)
[2018-01-17] MEDS: Acetaminophen/oxyCODONE 325-5 MG Tab PO PRN (18:59)
[2018-01-17] MEDS: Enoxaparin 40 MG/0.4 ML Syringe SUBCUT SCH (21:25)
[2018-01-17] MEDS ORDERED: Hydrocolloid Dressing 4x4 Bandage TOP PRN (23:09)
[2018-01-18 06:01] LABS: CHLORIDE,CL 99 mmol/L (98-107); SODIUM,NA 136 mmol/L (136-145)
[2018-01-18] MEDS: Phosphorus #1 250 MG Tab PO SCH (06:31)
[2018-01-18] MEDS: Levothyroxine 100 MCG Tab PO SCH (06:31)
[2018-01-18] MEDS: Acetaminophen/oxyCODONE 325-5 MG Tab PO PRN ×2 (06:35→18:50)
[2018-01-18] MEDS ORDERED: Potassium Chloride 20 MEQ Tab.ER PO ONE (07:42)
--- NOTE | 2018-01-18 07:44 | PCM.PN ---
- General Info Date of Service: 01/18/18 Admission Dx/Problem (Free Text): Admission Diagnosis/Problem Admission Diagnosis/Problem Hip fracture, intertrochanteric Subjective Update: SItting up in the chair today, feeling better than yesterday. reports moving alot better today and pain is controlled. No chest pain or SOB. Would like to go to SNF for short term rehabilitation to get back on her feet. Functional Status: Reports: Pain Controlled, Tolerating Diet, Ambulating, Urinating - Review of Systems General: Reports: No Symptoms. Denies: Fever, Weakness, Fatigue, Malaise HEENT: Reports: Sore Throat (continues to improve). Denies: Headaches Pulmonary: Reports: No Symptoms. Denies: Shortness of Breath, Cough, Sputum, Hemoptysis Cardiovascular: Reports: No Symptoms. Denies: Chest Pain, Edema Gastrointestinal: Reports: Constipation. Denies: Abdominal Pain, Nausea, Vomiting Genitourinary: Reports: No Symptoms. Denies: Dysuria, Frequency, Burning Musculoskeletal: Reports: Joint Pain (L hip pain, but tolerable ) Neurological: Reports: Tremors (improving) Psychiatric: Reports: No Symptoms - Patient Data Vitals - Most Recent: Last Vital Signs Temp 98.1 F 01/18/18 04:00 Pulse 74 01/18/18 04:00 Resp 16 01/18/18 04:00 BP 127/63 01/18/18 04:00 Pulse Ox 90 L 01/18/18 04:00 Weight - Most Recent: 63 kg I&O - Last 24 Hours: Intake & Output 01/17/18 01/18/18 01/18/18 22:59 06:59 14:59 Intake Total 700 850 Output Total 1000 1900 Balance -300 -1050 Lab Results Last 24 Hours: Laboratory Results - last 24 hr 01/18/18 01/18/18 Range/Units 05:05 05:05 WBC 7.95 (4.0-11.0) K/uL RBC 2.90 L (4.30-5.90) M/uL Hgb 8.9 L (12.0-16.0) g/dL Hct 27.9 L (36.0-46.0) % MCV 96.2 (80.0-98.0) fL MCH 30.7 (27.0-32.0) pg MCHC 31.9 (31.0-37.0) g/dL RDW Std Deviation 52.9 (28.0-62.0) fl RDW Coeff of Mallory 15 (11.0-15.0) % Plt Count 197 (150-400) K/uL MPV 10.70 (7.40-12.00) fL Neut % (Auto) 65.4 (48.0-80.0) % Lymph % (Auto) 17.0 (16.0-40.0) % [place] % (Auto) 14.6 (0.0-15.0) % Eos % (Auto) 2.6 (0.0-7.0) % Baso % (Auto) 0.4 (0.0-1.5) % Neut # (Auto) 5.2 (1.4-5.7) K/uL Lymph # (Auto) 1.4 (0.6-2.4) K/uL [place] # (Auto) 1.2 H (0.0-0.8) K/uL Eos # (Auto) 0.2 (0.0-0.7) K/uL Baso # (Auto) 0.0 (0.0-0.1) K/uL Nucleated RBC % 0.0 /100WBC Nucleated RBCs # 0 K/uL Sodium 136 (136-145) mmol/L Potassium 3.1 L (3.5-5.1) mmol/L Chloride 99 (98-107) mmol/L Carbon Dioxide 34.9 H (21.0-32.0) mmol/L BUN 8 (7.0-18.0) mg/dL Creatinine 0.7 (0.6-1.0) mg/dL Est Cr Clr Drug Dosing 60.46 mL/min Estimated GFR (MDRD) > 60.0 ml/min Glucose 96 (74-106) mg/dL Calcium 8.1 L (8.5-10.1) mg/dL Phosphorus 3.2 (2.6-4.7) mg/dL Magnesium 1.9 (1.8-2.4) mg/dL Med Orders - Current: Current Medications Benzocaine/Menthol (Cepacol Sore Throat) 1 lozenge MUCMEM 6XDAY PRN PRN Reason: Sore Throat Bisacodyl (Dulcolax) 10 mg RECTAL DAILY PRN PRN Reason: Constipation Docusate Sodium (Colace) 100 mg PO BID [facility] Last Admin: 01/17/18 21:27 Dose: 100 mg Enoxaparin Sodium (Lovenox) 40 mg SUBCUT Q24H [facility] Last Admin: 01/17/18 21:25 Dose: 40 mg Folic Acid (Folic Acid) 1 mg SUBCUT DAILY [facility] Last Admin: 01/17/18 09:34 Dose: 1 mg Hydromorphone HCl (Dilaudid) 0.5 - 1 mg IVPUSH Q3H PRN PRN Reason: Pain Levothyroxine Sodium (Synthroid) 100 mcg PO ACBREAKFAST [facility] Last Admin: 01/18/18 06:31 Dose: 100 mcg Lorazepam (Ativan) 0 mg IVPUSH Q4H PRN; Protocol PRN Reason: CIWAA Ondansetron HCl (Zofran) 4 mg IVPUSH Q4H PRN PRN Reason: Nausea Oxycodone/Acetaminophen (Percocet 325-5 Mg) 1 - 2 tab PO Q4H PRN PRN Reason: Pain Last Admin: 01/18/18 06:35 Dose: 2 tab Paroxetine HCl (Paxil) 20 mg PO DAILY [facility] Last Admin: 01/17/18 09:33 Dose: 20 mg Polyethylene Glycol (Miralax) 17 gm PO BEDTIME PRN PRN Reason: Constipation Potassium Chloride (Klor-Con M20) 40 meq PO ONETIME ONE Stop: 01/18/18 07:43 Sodium Chloride (Saline Flush) 10 ml FLUSH ASDIRECTED PRN PRN Reason: Keep Vein Open Sodium Chloride (Saline Flush) 2.5 ml FLUSH ASDIRECTED PRN PRN Reason: Keep Vein Open Thiamine HCl (Vitamin B-1) 100 mg IV DAILY [facility] Last Admin: 01/17/18 09:31 Dose: 100 mg Wound Care/Dressing Products (Duoderm Cgf) 1 each TOP Q6H PRN PRN Reason: blister Last Admin: 01/17/18 23:22 Dose: 1 each Discontinued Medications Albuterol (Proventil Hfa) Confirm Administered Dose 6.7 gm INH .STK-MED ONE Stop: 01/15/18 16:11 Albuterol/Ipratropium (Duoneb 3.0-0.5 Mg/3 Ml) 3 ml NEB ONETIME ONE Stop: 01/15/18 16:27 Last Admin: 01/15/18 18:27 Dose: 3 ml Ephedrine Sulfate (Ephedrine Sulfate) Confirm Administered Dose 50 mg .ROUTE .STK-MED ONE Stop: 01/15/18 16:09 Fentanyl (Sublimaze) Confirm Administered Dose 250 mcg .ROUTE .STK-MED ONE Stop: 01/15/18 15:20 Fentanyl (Sublimaze) Confirm Administered Dose 100 mcg .ROUTE .STK-MED ONE Stop: 01/15/18 16:49 Fentanyl (Sublimaze) 50 mcg IVPUSH Q5M PRN PRN Reason: Pain (severe 7-10) Stop: 01/16/18 18:22 Glycopyrrolate (Robinul) Confirm Administered Dose 0.4 mg .ROUTE .STK-MED ONE Stop: 01/15/18 16:36 Hydromorphone HCl (Dilaudid [employer] 6 Mg In Ns 30 Ml) 0 mg IV ASDIRECTED PRN; Protocol PRN Reason: Pain Last Admin: 01/15/18 18:32 Dose: 6 mg Cefazolin Sodium/Dextrose 1 gm (/ Premix) 50 mls @ 100 mls/hr IV Q8H ONE Stop: 01/15/18 12:29 Last Admin: 01/15/18 19:53 Dose: Not Given Lactated Ringer's (Ringers, Lactated) 1,000 mls @ 125 mls/hr IV ASDIRECTED [facility] Last Admin: 01/15/18 09:15 Dose: 125 mls/hr Lactated Ringer's (Ringers, Lactated) 1,000 mls @ 75 mls/hr IV ASDIRECTED [facility] Last Admin: 01/16/18 01:27 Dose: 75 mls/hr Cefazolin Sodium/Dextrose 1 gm (/ Premix) 50 mls @ 100 mls/hr IV Q8H [facility] Stop: 01/16/18 13:29 Last Admin: 01/16/18 12:51 Dose: 100 mls/hr Magnesium Sulfate 2 gm/ Premix 50 mls @ 50 mls/hr IV ONETIME ONE Stop: 01/16/18 08:33 Last Admin: 01/16/18 08:08 Dose: 50 mls/hr Magnesium Sulfate 2 gm/ Premix 50 mls @ 50 mls/hr IV ONETIME ONE Stop: 01/17/18 10:02 Last Admin: 01/17/18 09:52 Dose: 50 mls/hr Iopamidol (Isovue Multipack-370 (76%)) 75 ml IVPUSH ONETIME STA Stop: 01/15/18 14:51 Last Admin: 01/15/18 14:51 Dose: 75 ml Ipratropium [place] (Atrovent Hfa) Confirm Administered Dose 12.9 gm .ROUTE .STK -MED ONE Stop: 01/15/18 16:11 Levothyroxine Sodium (Synthroid) 100 mcg PO DAILY [facility] Last Admin: 01/16/18 12:57 Dose: Not Given Lidocaine (Xylocaine-Mpf 2%) Confirm Administered Dose 5 ml .ROUTE .STK-MED ONE Stop: 01/15/18 15:20 Midazolam HCl (Versed 1 Mg/Ml) Confirm Administered Dose 2 mg .ROUTE .STK-MED ONE Stop: 01/15/18 15:20 Morphine Sulfate (Morphine) 2 mg IVPUSH ONETIME ONE Stop: 01/15/18 04:26 Last Admin: 01/15/18 04:35 Dose: 2 mg Morphine Sulfate (Morphine) 2 mg IVPUSH ONETIME ONE Stop: 01/15/18 05:18 Last Admin: 01/15/18 05:27 Dose: 2 mg Morphine Sulfate (Morphine) 2 mg IVPUSH ONETIME ONE Stop: 01/15/18 06:24 Last Admin: 01/15/18 06:28 Dose: 2 mg Morphine Sulfate (Morphine) 2 mg IVPUSH ONETIME ONE Stop: 01/15/18 07:02 Last Admin: 01/15/18 07:31 Dose: 2 mg Morphine Sulfate (Morphine) 2 mg IVPUSH Q2H PRN PRN Reason: pain Last Admin: 01/15/18 13:05 Dose: 2 mg Neostigmine Methylsulfate (Neostigmine) Confirm Administered Dose 5 mg .ROUTE .STK-MED ONE Stop: 01/15/18 16:36 Ondansetron HCl (Zofran) 4 mg IVPUSH ONETIME ONE Stop: 01/15/18 04:26 Last Admin: 01/15/18 04:36 Dose: 4 mg Ondansetron HCl (Zofran) Confirm Administered Dose 4 mg .ROUTE .STK-MED ONE Stop: 01/15/18 15:20 Propofol (Diprivan 20 Ml) Confirm Administered Dose 200 mg .ROUTE .STK-MED ONE Stop: 01/15/18 15:20 Rocuronium [place] (Zemuron) Confirm Administered Dose 100 mg .ROUTE .STK-MED ONE Stop: 01/15/18 15:20 Sodium Phosphate (Neutra-Phos) 250 mg PO QID [facility] Stop: 01/18/18 06:01 Last Admin: 01/18/18 06:31 Dose: 250 mg Succinylcholine Chloride (Quelicin) Confirm Administered Dose 200 mg .ROUTE .STK -MED ONE Stop: 01/15/18 15:20 Sugammadex Sodium (Bridion) Confirm Administered Dose 200 mg .ROUTE .STK-MED ONE Stop: 01/15/18 16:41 Tranexamic Acid (Cyklokapron) Confirm Administered Dose 2,000 mg .ROUTE .STK- MED ONE Stop: 01/15/18 16:16 - Exam Quality Assessment: DVT Prophylaxis General: Alert, Oriented, Cooperative, No Acute Distress Neck: Supple Lungs: Clear to Auscultation, Normal Respiratory Effort Cardiovascular: Regular Rate, Regular Rhythm GI/Abdominal Exam: Normal Bowel Sounds, Soft, Non-Tender, No Organomegaly, No Distention, No Abnormal Bruit, No Mass, Pelvis Stable Extremities: Normal Inspection, Normal Range of Motion, No Pedal Edema, Normal Capillary Refill, Other (some swelling to L upper thigh, but improving ) Skin: Other (blisters noted to L hip, from previous dressing. Have opened, nursing covered with duoderm. WIll monitor. ) Wound/Incisions: Dressing Dry and Intact (L hip), No Drainage. No: Erythema Neurological: No New Focal Deficit, Sensation Intact Psy/Mental Status: Alert, Normal Affect, Normal Mood - Problem List & Annotations (1) Femoral neck fracture SNOMED Code(s): 7374533 Code(s): S72.009A - FRACTURE OF UNSP PART OF NECK OF UNSP FEMUR, INIT Status: Acute Current Visit: Yes Qualifiers: Encounter type: initial encounter Fracture type: closed Laterality: left Qualified Code(s): S72.002A - Fracture of unspecified part of neck of left femur, initial encounter for closed fracture (2) Cardiomegaly SNOMED Code(s): 9567281 Code(s): I51.7 - CARDIOMEGALY Status: Acute Current Visit: Yes (3) Tobacco abuse SNOMED Code(s): 631535637 Code(s): Z72.0 - TOBACCO USE Status: Chronic Current Visit: Yes (4) Alcohol abuse SNOMED Code(s): 88660241 Code(s): F10.10 - ALCOHOL ABUSE, UNCOMPLICATED Status: Chronic Current Visit: Yes (5) Depression SNOMED Code(s): 27067766 Code(s): F32.9 - MAJOR DEPRESSIVE DISORDER, SINGLE EPISODE, UNSPECIFIED Status: Chronic Current Visit: Yes (6) Anxiety SNOMED Code(s): 95577853 Code(s): F41.9 - ANXIETY DISORDER, UNSPECIFIED Status: Chronic Current Visit: Yes (7) Hypothyroid SNOMED Code(s): 49701232 Code(s): E03.9 - HYPOTHYROIDISM, UNSPECIFIED Status: Chronic Current Visit: Yes (8) Homeless single person SNOMED Code(s): 243487188 Code(s): Z59.0 - HOMELESSNESS Status: Chronic Current Visit: Yes - Problem List Review Problem List Initiated/Reviewed/Updated: Yes - My Orders Last 24 Hours: My Active Orders 01/17/18 09:04 Bisacodyl [Dulcolax] 10 mg RECTAL DAILY PRN Polyethylene Glycol 3350 [MiraLAX] 17 gm PO BEDTIME PRN 01/17/18 09:15 Docusate Sodium [Colace] 100 mg PO BID 01/18/18 07:42 Potassium Chloride [Klor-Con M20] 40 meq PO ONETIME ONE - Plan Plan:: This 67 year old female admitted with L femoral neck fracture 1. Femoral neck fracture: Dr Cotto, Orthopedics consulted. Continues to do well with PT and nursing to be up and ambulating and in chair. SNF will not accept patient at this time due suicide attempt in October 2017. Discussing Home Health with Julianna and her brothers today. WIll consult Home Health. Will need home supplies including shower chair, walker and toilet riser. Hgb 8.9 today, asymptomatic. BP stable. No lightheadedness of dizziness. No bleeding noted. Has not had BM, will have nursing give suppository. Passing flatus. 2. Alcohol abuse: Stable. Tremors improving. Continue CIWAA protocol with Ativan protocol. Supplement with Thiamine and Folic Acid daily. Magnesium supplemented this am, 2 gm IV. 4. Depression/Anxiety: Stable. Continue Paxil. 5. Hypothryoidism: Stable. Continue Levothyroxine. VTE prophylaxis: Lovenox Dispo: 2 pending continued talks with brothers regarding short rehabilitation vs Home with Home Health.
[2018-01-18] MEDS: Thiamine 200 MG/2 ML MDV IV SCH (08:39)
[2018-01-18] MEDS: PARoxetine 20 MG Tab PO SCH (08:40)
[2018-01-18] MEDS: Folic Acid 50 MG/10 ML MDV SUBCUT SCH (08:41)
[2018-01-18] MEDS: Docusate Sodium 100 MG Cap PO SCH ×2 (08:41→20:47)
[2018-01-18] MEDS ORDERED: PARoxetine 20 MG Tab PO ONE (09:33)
--- NOTE | 2018-01-18 09:35 | PCM.SURGPN ---
<Karen Mitchell R - Last Filed: 01/18/18 09:29> - General Info Date of Service: 01/18/18 Date of Surgery/Procedure: 01/15/18 POD#: 3 Functional Status: Reports: Pain Controlled, Tolerating Diet, Ambulating, Urinating - Review of Systems General: Reports: No Symptoms Pulmonary: Reports: No Symptoms. Denies: Shortness of Breath Cardiovascular: Reports: No Symptoms. Denies: Chest Pain, Palpitations Gastrointestinal: Reports: No Symptoms. Denies: Nausea, Vomiting Systems Review Comment:: pt resting comfortably in bed pain controlled with 2 percocet 5/325 twice daily has developed decubitus ulcers to L posterior hip and buttock case management advised that she was denied admission to SNF, hospitalist service exploring home health disposition asked to have a cigarette today pt has no specific concerns today - Patient Data Vitals - Most Recent: Last Vital Signs Temp 98.1 F 01/18/18 04:00 Pulse 74 01/18/18 04:00 Resp 16 01/18/18 04:00 BP 127/63 01/18/18 04:00 Pulse Ox 90 L 01/18/18 04:00 Weight - Most Recent: 63 kg I&O - Last 24 Hours: Intake & Output 01/17/18 01/18/18 01/18/18 22:59 06:59 14:59 Intake Total 700 850 Output Total 1000 1900 Balance -300 -1050 Lab Results Last 24 Hrs: Laboratory Results - last 24 hr 01/18/18 01/18/18 Range/Units 05:05 05:05 WBC 7.95 (4.0-11.0) K/uL RBC 2.90 L (4.30-5.90) M/uL Hgb 8.9 L (12.0-16.0) g/dL Hct 27.9 L (36.0-46.0) % MCV 96.2 (80.0-98.0) fL MCH 30.7 (27.0-32.0) pg MCHC 31.9 (31.0-37.0) g/dL RDW Std Deviation 52.9 (28.0-62.0) fl RDW Coeff of Mallory 15 (11.0-15.0) % Plt Count 197 (150-400) K/uL MPV 10.70 (7.40-12.00) fL Neut % (Auto) 65.4 (48.0-80.0) % Lymph % (Auto) 17.0 (16.0-40.0) % Steele % (Auto) 14.6 (0.0-15.0) % Eos % (Auto) 2.6 (0.0-7.0) % Baso % (Auto) 0.4 (0.0-1.5) % Neut # (Auto) 5.2 (1.4-5.7) K/uL Lymph # (Auto) 1.4 (0.6-2.4) K/uL Steele # (Auto) 1.2 H (0.0-0.8) K/uL Eos # (Auto) 0.2 (0.0-0.7) K/uL Baso # (Auto) 0.0 (0.0-0.1) K/uL Nucleated RBC % 0.0 /100WBC Nucleated RBCs # 0 K/uL Sodium 136 (136-145) mmol/L Potassium 3.1 L (3.5-5.1) mmol/L Chloride 99 (98-107) mmol/L Carbon Dioxide 34.9 H (21.0-32.0) mmol/L BUN 8 (7.0-18.0) mg/dL Creatinine 0.7 (0.6-1.0) mg/dL Est Cr Clr Drug Dosing 60.46 mL/min Estimated GFR (MDRD) > 60.0 ml/min Glucose 96 (74-106) mg/dL Calcium 8.1 L (8.5-10.1) mg/dL Phosphorus 3.2 (2.6-4.7) mg/dL Magnesium 1.9 (1.8-2.4) mg/dL Med Orders - Current: Current Medications Benzocaine/Menthol (Cepacol Sore Throat) 1 lozenge MUCMEM 6XDAY PRN PRN Reason: Sore Throat Bisacodyl (Dulcolax) 10 mg RECTAL DAILY PRN PRN Reason: Constipation Docusate Sodium (Colace) 100 mg PO BID [facility] Last Admin: 01/18/18 08:41 Dose: 100 mg Enoxaparin Sodium (Lovenox) 40 mg SUBCUT Q24H [facility] Last Admin: 01/17/18 21:25 Dose: 40 mg Folic Acid (Folic Acid) 1 mg SUBCUT DAILY [facility] Last Admin: 01/18/18 08:41 Dose: 1 mg Hydromorphone HCl (Dilaudid) 0.5 - 1 mg IVPUSH Q3H PRN PRN Reason: Pain Levothyroxine Sodium (Synthroid) 100 mcg PO ACBREAKFAST [facility] Last Admin: 01/18/18 06:31 Dose: 100 mcg Lorazepam (Ativan) 0 mg IVPUSH Q4H PRN; Protocol PRN Reason: CIWAA Ondansetron HCl (Zofran) 4 mg IVPUSH Q4H PRN PRN Reason: Nausea Oxycodone/Acetaminophen (Percocet 325-5 Mg) 1 - 2 tab PO Q4H PRN PRN Reason: Pain Last Admin: 01/18/18 06:35 Dose: 2 tab Paroxetine HCl (Paxil) 20 mg PO DAILY [facility] Last Admin: 01/18/18 08:40 Dose: 20 mg Polyethylene Glycol (Miralax) 17 gm PO BEDTIME PRN PRN Reason: Constipation Sodium Chloride (Saline Flush) 10 ml FLUSH ASDIRECTED PRN PRN Reason: Keep Vein Open Sodium Chloride (Saline Flush) 2.5 ml FLUSH ASDIRECTED PRN PRN Reason: Keep Vein Open Thiamine HCl (Vitamin B-1) 100 mg IV DAILY [facility] Last Admin: 01/18/18 08:39 Dose: 100 mg Wound Care/Dressing Products (Duoderm Cgf) 1 each TOP Q6H PRN PRN Reason: blister Last Admin: 01/17/18 23:22 Dose: 1 each Discontinued Medications Albuterol (Proventil Hfa) Confirm Administered Dose 6.7 gm INH .STK-MED ONE Stop: 01/15/18 16:11 Albuterol/Ipratropium (Duoneb 3.0-0.5 Mg/3 Ml) 3 ml NEB ONETIME ONE Stop: 01/15/18 16:27 Last Admin: 01/15/18 18:27 Dose: 3 ml Ephedrine Sulfate (Ephedrine Sulfate) Confirm Administered Dose 50 mg .ROUTE .STK-MED ONE Stop: 01/15/18 16:09 Fentanyl (Sublimaze) Confirm Administered Dose 250 mcg .ROUTE .STK-MED ONE Stop: 01/15/18 15:20 Fentanyl (Sublimaze) Confirm Administered Dose 100 mcg .ROUTE .STK-MED ONE Stop: 01/15/18 16:49 Fentanyl (Sublimaze) 50 mcg IVPUSH Q5M PRN PRN Reason: Pain (severe 7-10) Stop: 01/16/18 18:22 Glycopyrrolate (Robinul) Confirm Administered Dose 0.4 mg .ROUTE .STK-MED ONE Stop: 01/15/18 16:36 Hydromorphone HCl (Dilaudid Sandblaster Supervisor 6 Mg In Ns 30 Ml) 0 mg IV ASDIRECTED PRN; Protocol PRN Reason: Pain Last Admin: 01/15/18 18:32 Dose: 6 mg Cefazolin Sodium/Dextrose 1 gm (/ Premix) 50 mls @ 100 mls/hr IV Q8H ONE Stop: 01/15/18 12:29 Last Admin: 01/15/18 19:53 Dose: Not Given Lactated Ringer's (Ringers, Lactated) 1,000 mls @ 125 mls/hr IV ASDIRECTED [facility] Last Admin: 01/15/18 09:15 Dose: 125 mls/hr Lactated Ringer's (Ringers, Lactated) 1,000 mls @ 75 mls/hr IV ASDIRECTED [facility] Last Admin: 01/16/18 01:27 Dose: 75 mls/hr Cefazolin Sodium/Dextrose 1 gm (/ Premix) 50 mls @ 100 mls/hr IV Q8H [facility] Stop: 01/16/18 13:29 Last Admin: 01/16/18 12:51 Dose: 100 mls/hr Magnesium Sulfate 2 gm/ Premix 50 mls @ 50 mls/hr IV ONETIME ONE Stop: 01/16/18 08:33 Last Admin: 01/16/18 08:08 Dose: 50 mls/hr Magnesium Sulfate 2 gm/ Premix 50 mls @ 50 mls/hr IV ONETIME ONE Stop: 01/17/18 10:02 Last Admin: 01/17/18 09:52 Dose: 50 mls/hr Iopamidol (Isovue Multipack-370 (76%)) 75 ml IVPUSH ONETIME STA Stop: 01/15/18 14:51 Last Admin: 01/15/18 14:51 Dose: 75 ml Ipratropium [place] (Atrovent Hfa) Confirm Administered Dose 12.9 gm .ROUTE .STK -MED ONE Stop: 01/15/18 16:11 Levothyroxine Sodium (Synthroid) 100 mcg PO DAILY [facility] Last Admin: 01/16/18 12:57 Dose: Not Given Lidocaine (Xylocaine-Mpf 2%) Confirm Administered Dose 5 ml .ROUTE .STK-MED ONE Stop: 01/15/18 15:20 Midazolam HCl (Versed 1 Mg/Ml) Confirm Administered Dose 2 mg .ROUTE .STK-MED ONE Stop: 01/15/18 15:20 Morphine Sulfate (Morphine) 2 mg IVPUSH ONETIME ONE Stop: 01/15/18 04:26 Last Admin: 01/15/18 04:35 Dose: 2 mg Morphine Sulfate (Morphine) 2 mg IVPUSH ONETIME ONE Stop: 01/15/18 05:18 Last Admin: 01/15/18 05:27 Dose: 2 mg Morphine Sulfate (Morphine) 2 mg IVPUSH ONETIME ONE Stop: 01/15/18 06:24 Last Admin: 01/15/18 06:28 Dose: 2 mg Morphine Sulfate (Morphine) 2 mg IVPUSH ONETIME ONE Stop: 01/15/18 07:02 Last Admin: 01/15/18 07:31 Dose: 2 mg Morphine Sulfate (Morphine) 2 mg IVPUSH Q2H PRN PRN Reason: pain Last Admin: 01/15/18 13:05 Dose: 2 mg Neostigmine Methylsulfate (Neostigmine) Confirm Administered Dose 5 mg .ROUTE .STK-MED ONE Stop: 01/15/18 16:36 Ondansetron HCl (Zofran) 4 mg IVPUSH ONETIME ONE Stop: 01/15/18 04:26 Last Admin: 01/15/18 04:36 Dose: 4 mg Ondansetron HCl (Zofran) Confirm Administered Dose 4 mg .ROUTE .STK-MED ONE Stop: 01/15/18 15:20 Potassium Chloride (Klor-Con M20) 40 meq PO ONETIME ONE Stop: 01/18/18 07:43 Last Admin: 01/18/18 08:40 Dose: 40 meq Propofol (Diprivan 20 Ml) Confirm Administered Dose 200 mg .ROUTE .STK-MED ONE Stop: 01/15/18 15:20 Rocuronium [place] (Zemuron) Confirm Administered Dose 100 mg .ROUTE .STK-MED ONE Stop: 01/15/18 15:20 Sodium Phosphate (Neutra-Phos) 250 mg PO QID [facility] Stop: 01/18/18 06:01 Last Admin: 01/18/18 06:31 Dose: 250 mg Succinylcholine Chloride (Quelicin) Confirm Administered Dose 200 mg .ROUTE .STK -MED ONE Stop: 01/15/18 15:20 Sugammadex Sodium (Bridion) Confirm Administered Dose 200 mg .ROUTE .STK-MED ONE Stop: 01/15/18 16:41 Tranexamic Acid (Cyklokapron) Confirm Administered Dose 2,000 mg .ROUTE .STK- MED ONE Stop: 01/15/18 16:16 - Exam Wound/Incisions: Dressing Dry and Intact Quality Assessment: Skin Breakdown (duoderm bandages in place to posterior hip and buttock. no erythema noted extending beyond dressings.) General: Alert, Oriented Cardiovascular: Regular Rate, Regular Rhythm Extremities: No Pedal Edema, Other (exam L hip reveals aquacel dressing clean and dry. duoderm dressings over areas of skin breakdown. thigh soft. at/ehl/ gastroc 5/5, dp 2+, sensation intact distally) Physical Findings Comment:: vss, afeb hgb 8.9 - Problem List Review Problem List Initiated/Reviewed/Updated: Yes - My Orders Last 24 Hours: Active Orders 24 hr Category Date Time Status Communication Order [RC] ROUTINE Care 01/18/18 09:03 Active BMP [BASIC METABOLIC PANEL,BMP] [CHEM] AM Lab 01/19/18 05:11 Ordered CBC WITH AUTO DIFF [HEME] AM Lab 01/19/18 05:11 Ordered Bisacodyl [Dulcolax] Med 01/17/18 09:04 Active 10 mg RECTAL DAILY PRN Docusate Sodium [Colace] Med 01/17/18 09:15 Active 100 mg PO BID Hydrocolloid Dressing [DuoDerm CGF] Med 01/17/18 23:09 Active 1 each TOP Q6H PRN Polyethylene Glycol 3350 [MiraLAX] Med 01/17/18 09:04 Active 17 gm PO BEDTIME PRN Medication Orders Benzocaine/Menthol (Cepacol Sore Throat) 1 lozenge MUCMEM 6XDAY PRN PRN Reason: Sore Throat Bisacodyl (Dulcolax) 10 mg RECTAL DAILY PRN PRN Reason: Constipation Docusate Sodium (Colace) 100 mg PO BID [facility] Last Admin: 01/18/18 08:41 Dose: 100 mg Admin: 01/17/18 21:27 Dose: 100 mg Admin: 01/17/18 09:53 Dose: 100 mg Enoxaparin Sodium (Lovenox) 40 mg SUBCUT Q24H [facility] Last Admin: 01/17/18 21:25 Dose: 40 mg Admin: 01/16/18 22:01 Dose: 40 mg Folic Acid (Folic Acid) 1 mg SUBCUT DAILY [facility] Last Admin: 01/18/18 08:41 Dose: 1 mg Admin: 01/17/18 09:34 Dose: 1 mg Admin: 01/16/18 08:10 Dose: 1 mg Hydromorphone HCl (Dilaudid) 0.5 - 1 mg IVPUSH Q3H PRN PRN Reason: Pain Levothyroxine Sodium (Synthroid) 100 mcg PO ACBREAKFAST [facility] Last Admin: 01/18/18 06:31 Dose: 100 mcg Admin: 01/17/18 06:37 Dose: 100 mcg Admin: 01/16/18 12:35 Dose: 100 mcg Lorazepam (Ativan) 0 mg IVPUSH Q4H PRN; Protocol PRN Reason: CIWAA Ondansetron HCl (Zofran) 4 mg IVPUSH Q4H PRN PRN Reason: Nausea Oxycodone/Acetaminophen (Percocet 325-5 Mg) 1 - 2 tab PO Q4H PRN PRN Reason: Pain Last Admin: 01/18/18 06:35 Dose: 2 tab Admin: 01/17/18 18:59 Dose: 2 tab Admin: 01/16/18 22:24 Dose: 2 tab Admin: 01/16/18 17:51 Dose: 2 tab Admin: 01/16/18 08:58 Dose: 2 tab Paroxetine HCl (Paxil) 20 mg PO DAILY [facility] Last Admin: 01/18/18 08:40 Dose: 20 mg Admin: 01/17/18 09:33 Dose: 20 mg Admin: 01/16/18 08:09 Dose: 20 mg Polyethylene Glycol (Miralax) 17 gm PO BEDTIME PRN PRN Reason: Constipation Sodium Chloride (Saline Flush) 10 ml FLUSH ASDIRECTED PRN PRN Reason: Keep Vein Open Sodium Chloride (Saline Flush) 2.5 ml FLUSH ASDIRECTED PRN PRN Reason: Keep Vein Open Thiamine HCl (Vitamin B-1) 100 mg IV DAILY [facility] Last Admin: 01/18/18 08:39 Dose: 100 mg Admin: 01/17/18 09:31 Dose: 100 mg Admin: 01/16/18 08:09 Dose: 100 mg Wound Care/Dressing Products (Duoderm Cgf) 1 each TOP Q6H PRN PRN Reason: blister Last Admin: 01/17/18 23:22 Dose: 1 each - Assessment Assessment (Free Text/Narrative):: POD#3 L hip hemiarthroplasty acute posthemorrhagic anemia - Plan Plan (Free Text/Narrative):: continue PT, posterior hip precautions HIP ADDUCTOR PILLOW WHILE IN BED continue pain management continue subq lovenox x 4 weeks post-op as dvt prophylaxis nicotine patch advised smoking cessation and discussed risk of post-op complications with smoking will continue to follow <Julita Cotto R - Last Filed: 01/18/18 17:25> - Patient Data Vitals - Most Recent: Last Vital Signs Temp 97.9 F 01/18/18 15:00 Pulse 79 01/18/18 15:00 Resp 16 01/18/18 15:00 BP 105/58 L 01/18/18 15:00 Pulse Ox 95 01/18/18 15:00 I&O - Last 24 Hours: Intake & Output 01/18/18 01/18/18 01/18/18 06:59 14:59 22:59 Intake Total 850 Output Total 1900 Balance -1050 Lab Results Last 24 Hrs: Laboratory Results - last 24 hr 01/18/18 01/18/18 Range/Units 05:05 05:05 WBC 7.95 (4.0-11.0) K/uL RBC 2.90 L (4.30-5.90) M/uL Hgb 8.9 L (12.0-16.0) g/dL Hct 27.9 L (36.0-46.0) % MCV 96.2 (80.0-98.0) fL MCH 30.7 (27.0-32.0) pg MCHC 31.9 (31.0-37.0) g/dL RDW Std Deviation 52.9 (28.0-62.0) fl RDW Coeff of Mallory 15 (11.0-15.0) % Plt Count 197 (150-400) K/uL MPV 10.70 (7.40-12.00) fL Neut % (Auto) 65.4 (48.0-80.0) % Lymph % (Auto) 17.0 (16.0-40.0) % Steele % (Auto) 14.6 (0.0-15.0) % Eos % (Auto) 2.6 (0.0-7.0) % Baso % (Auto) 0.4 (0.0-1.5) % Neut # (Auto) 5.2 (1.4-5.7) K/uL Lymph # (Auto) 1.4 (0.6-2.4) K/uL Steele # (Auto) 1.2 H (0.0-0.8) K/uL Eos # (Auto) 0.2 (0.0-0.7) K/uL Baso # (Auto) 0.0 (0.0-0.1) K/uL Nucleated RBC % 0.0 /100WBC Nucleated RBCs # 0 K/uL Sodium 136 (136-145) mmol/L Potassium 3.1 L (3.5-5.1) mmol/L Chloride 99 (98-107) mmol/L Carbon Dioxide 34.9 H (21.0-32.0) mmol/L BUN 8 (7.0-18.0) mg/dL Creatinine 0.7 (0.6-1.0) mg/dL Est Cr Clr Drug Dosing 60.46 mL/min Estimated GFR (MDRD) > 60.0 ml/min Glucose 96 (74-106) mg/dL Calcium 8.1 L (8.5-10.1) mg/dL Phosphorus 3.2 (2.6-4.7) mg/dL Magnesium 1.9 (1.8-2.4) mg/dL Med Orders - Current: Current Medications Benzocaine/Menthol (Cepacol Sore Throat) 1 lozenge MUCMEM 6XDAY PRN PRN Reason: Sore Throat Bisacodyl (Dulcolax) 10 mg RECTAL DAILY PRN PRN Reason: Constipation Docusate Sodium (Colace) 100 mg PO BID [facility] Last Admin: 01/18/18 08:41 Dose: 100 mg Enoxaparin Sodium (Lovenox) 40 mg SUBCUT Q24H [facility] Last Admin: 01/17/18 21:25 Dose: 40 mg Folic Acid (Folic Acid) 1 mg SUBCUT DAILY [facility] Last Admin: 01/18/18 08:41 Dose: 1 mg Hydromorphone HCl (Dilaudid) 0.5 - 1 mg IVPUSH Q3H PRN PRN Reason: Pain Levothyroxine Sodium (Synthroid) 100 mcg PO ACBREAKFAST [facility] Last Admin: 01/18/18 06:31 Dose: 100 mcg Lorazepam (Ativan) 0 mg IVPUSH Q4H PRN; Protocol PRN Reason: CIWAA Nicotine (Habitrol) 14 mg TRDERM DAILY [facility] Last Admin: 01/18/18 10:52 Dose: 14 mg Ondansetron HCl (Zofran) 4 mg IVPUSH Q4H PRN PRN Reason: Nausea Oxycodone/Acetaminophen (Percocet 325-5 Mg) 1 - 2 tab PO Q4H PRN PRN Reason: Pain Last Admin: 01/18/18 06:35 Dose: 2 tab Paroxetine HCl (Paxil) 40 mg PO DAILY [facility] Polyethylene Glycol (Miralax) 17 gm PO BEDTIME PRN PRN Reason: Constipation Sodium Chloride (Saline Flush) 10 ml FLUSH ASDIRECTED PRN PRN Reason: Keep Vein Open Sodium Chloride (Saline Flush) 2.5 ml FLUSH ASDIRECTED PRN PRN Reason: Keep Vein Open Thiamine HCl (Vitamin B-1) 100 mg IV DAILY [facility] Last Admin: 01/18/18 08:39 Dose: 100 mg Wound Care/Dressing Products (Duoderm Cgf) 1 each TOP Q6H PRN PRN Reason: blister Last Admin: 01/17/18 23:22 Dose: 1 each Discontinued Medications Albuterol (Proventil Hfa) Confirm Administered Dose 6.7 gm INH .STK-MED ONE Stop: 01/15/18 16:11 Albuterol/Ipratropium (Duoneb 3.0-0.5 Mg/3 Ml) 3 ml NEB ONETIME ONE Stop: 01/15/18 16:27 Last Admin: 01/15/18 18:27 Dose: 3 ml Ephedrine Sulfate (Ephedrine Sulfate) Confirm Administered Dose 50 mg .ROUTE .STK-MED ONE Stop: 01/15/18 16:09 Fentanyl (Sublimaze) Confirm Administered Dose 250 mcg .ROUTE .STK-MED ONE Stop: 01/15/18 15:20 Fentanyl (Sublimaze) Confirm Administered Dose 100 mcg .ROUTE .STK-MED ONE Stop: 01/15/18 16:49 Fentanyl (Sublimaze) 50 mcg IVPUSH Q5M PRN PRN Reason: Pain (severe 7-10) Stop: 01/16/18 18:22 Glycopyrrolate (Robinul) Confirm Administered Dose 0.4 mg .ROUTE .STK-MED ONE Stop: 01/15/18 16:36 Hydromorphone HCl (Dilaudid Sandblaster Supervisor 6 Mg In Ns 30 Ml) 0 mg IV ASDIRECTED PRN; Protocol PRN Reason: Pain Last Admin: 01/15/18 18:32 Dose: 6 mg Cefazolin Sodium/Dextrose 1 gm (/ Premix) 50 mls @ 100 mls/hr IV Q8H ONE Stop: 01/15/18 12:29 Last Admin: 01/15/18 19:53 Dose: Not Given Lactated Ringer's (Ringers, Lactated) 1,000 mls @ 125 mls/hr IV ASDIRECTED [facility] Last Admin: 01/15/18 09:15 Dose: 125 mls/hr Lactated Ringer's (Ringers, Lactated) 1,000 mls @ 75 mls/hr IV ASDIRECTED [facility] Last Admin: 01/16/18 01:27 Dose: 75 mls/hr Cefazolin Sodium/Dextrose 1 gm (/ Premix) 50 mls @ 100 mls/hr IV Q8H [facility] Stop: 01/16/18 13:29 Last Admin: 01/16/18 12:51 Dose: 100 mls/hr Magnesium Sulfate 2 gm/ Premix 50 mls @ 50 mls/hr IV ONETIME ONE Stop: 01/16/18 08:33 Last Admin: 01/16/18 08:08 Dose: 50 mls/hr Magnesium Sulfate 2 gm/ Premix 50 mls @ 50 mls/hr IV ONETIME ONE Stop: 01/17/18 10:02 Last Admin: 01/17/18 09:52 Dose: 50 mls/hr Iopamidol (Isovue Multipack-370 (76%)) 75 ml IVPUSH ONETIME STA Stop: 01/15/18 14:51 Last Admin: 01/15/18 14:51 Dose: 75 ml Ipratropium [place] (Atrovent Hfa) Confirm Administered Dose 12.9 gm .ROUTE .STK -MED ONE Stop: 01/15/18 16:11 Levothyroxine Sodium (Synthroid) 100 mcg PO DAILY [facility] Last Admin: 01/16/18 12:57 Dose: Not Given Lidocaine (Xylocaine-Mpf 2%) Confirm Administered Dose 5 ml .ROUTE .STK-MED ONE Stop: 01/15/18 15:20 Midazolam HCl (Versed 1 Mg/Ml) Confirm Administered Dose 2 mg .ROUTE .STK-MED ONE Stop: 01/15/18 15:20 Morphine Sulfate (Morphine) 2 mg IVPUSH ONETIME ONE Stop: 01/15/18 04:26 Last Admin: 01/15/18 04:35 Dose: 2 mg Morphine Sulfate (Morphine) 2 mg IVPUSH ONETIME ONE Stop: 01/15/18 05:18 Last Admin: 01/15/18 05:27 Dose: 2 mg Morphine Sulfate (Morphine) 2 mg IVPUSH ONETIME ONE Stop: 01/15/18 06:24 Last Admin: 01/15/18 06:28 Dose: 2 mg Morphine Sulfate (Morphine) 2 mg IVPUSH ONETIME ONE Stop: 01/15/18 07:02 Last Admin: 01/15/18 07:31 Dose: 2 mg Morphine Sulfate (Morphine) 2 mg IVPUSH Q2H PRN PRN Reason: pain Last Admin: 01/15/18 13:05 Dose: 2 mg Neostigmine Methylsulfate (Neostigmine) Confirm Administered Dose 5 mg .ROUTE .STK-MED ONE Stop: 01/15/18 16:36 Ondansetron HCl (Zofran) 4 mg IVPUSH ONETIME ONE Stop: 01/15/18 04:26 Last Admin: 01/15/18 04:36 Dose: 4 mg Ondansetron HCl (Zofran) Confirm Administered Dose 4 mg .ROUTE .STK-MED ONE Stop: 01/15/18 15:20 Paroxetine HCl (Paxil) 20 mg PO DAILY [facility] Last Admin: 01/18/18 08:40 Dose: 20 mg Paroxetine HCl (Paxil) 20 mg PO ONETIME ONE Stop: 01/18/18 09:34 Last Admin: 01/18/18 10:52 Dose: 20 mg Potassium Chloride (Klor-Con M20) 40 meq PO ONETIME ONE Stop: 01/18/18 07:43 Last Admin: 01/18/18 08:40 Dose: 40 meq Propofol (Diprivan 20 Ml) Confirm Administered Dose 200 mg .ROUTE .STK-MED ONE Stop: 01/15/18 15:20 Rocuronium [place] (Zemuron) Confirm Administered Dose 100 mg .ROUTE .STK-MED ONE Stop: 01/15/18 15:20 Sodium Phosphate (Neutra-Phos) 250 mg PO QID [facility] Stop: 01/18/18 06:01 Last Admin: 01/18/18 06:31 Dose: 250 mg Succinylcholine Chloride (Quelicin) Confirm Administered Dose 200 mg .ROUTE .STK -MED ONE Stop: 01/15/18 15:20 Sugammadex Sodium (Bridion) Confirm Administered Dose 200 mg .ROUTE .STK-MED ONE Stop: 01/15/18 16:41 Tranexamic Acid (Cyklokapron) Confirm Administered Dose 2,000 mg .ROUTE .STK- MED ONE Stop: 01/15/18 16:16 - Problem List & Annotations (1) Hip fracture SNOMED Code(s): 543558043 Code(s): S72.009A - FRACTURE OF UNSP PART OF NECK OF UNSP FEMUR, INIT Status: Acute Current Visit: Yes Qualifiers: Encounter type: initial encounter Fracture type: closed Laterality: left Qualified Code(s): S72.002A - Fracture of unspecified part of neck of left femur, initial encounter for closed fracture - My Orders Last 24 Hours: Active Orders 24 hr Category Date Time Status Communication Order [RC] ROUTINE Care 01/18/18 09:03 Active BMP [BASIC METABOLIC PANEL,BMP] [CHEM] AM Lab 01/19/18 05:11 Ordered CBC WITH AUTO DIFF [HEME] AM Lab 01/19/18 05:11 Ordered Hydrocolloid Dressing [DuoDerm CGF] Med 01/17/18 23:09 Active 1 each TOP Q6H PRN Nicotine [Habitrol] Med 01/18/18 09:45 Active 14 mg TRDERM DAILY PARoxetine [Paxil] Med 01/19/18 09:00 Active 40 mg PO DAILY Medication Orders Benzocaine/Menthol (Cepacol Sore Throat) 1 lozenge MUCMEM 6XDAY PRN PRN Reason: Sore Throat Bisacodyl (Dulcolax) 10 mg RECTAL DAILY PRN PRN Reason: Constipation Docusate Sodium (Colace) 100 mg PO BID [facility] Last Admin: 01/18/18 08:41 Dose: 100 mg Admin: 01/17/18 21:27 Dose: 100 mg Admin: 01/17/18 09:53 Dose: 100 mg Enoxaparin Sodium (Lovenox) 40 mg SUBCUT Q24H [facility] Last Admin: 01/17/18 21:25 Dose: 40 mg Admin: 01/16/18 22:01 Dose: 40 mg Folic Acid (Folic Acid) 1 mg SUBCUT DAILY [facility] Last Admin: 01/18/18 08:41 Dose: 1 mg Admin: 01/17/18 09:34 Dose: 1 mg Admin: 01/16/18 08:10 Dose: 1 mg Hydromorphone HCl (Dilaudid) 0.5 - 1 mg IVPUSH Q3H PRN PRN Reason: Pain Levothyroxine Sodium (Synthroid) 100 mcg PO ACBREAKFAST [facility] Last Admin: 01/18/18 06:31 Dose: 100 mcg Admin: 01/17/18 06:37 Dose: 100 mcg Admin: 01/16/18 12:35 Dose: 100 mcg Lorazepam (Ativan) 0 mg IVPUSH Q4H PRN; Protocol PRN Reason: CIWAA Nicotine (Habitrol) 14 mg TRDERM DAILY [facility] Last Admin: 01/18/18 10:52 Dose: 14 mg Ondansetron HCl (Zofran) 4 mg IVPUSH Q4H PRN PRN Reason: Nausea Oxycodone/Acetaminophen (Percocet 325-5 Mg) 1 - 2 tab PO Q4H PRN PRN Reason: Pain Last Admin: 01/18/18 06:35 Dose: 2 tab Admin: 01/17/18 18:59 Dose: 2 tab Admin: 01/16/18 22:24 Dose: 2 tab Admin: 01/16/18 17:51 Dose: 2 tab Admin: 01/16/18 08:58 Dose: 2 tab Paroxetine HCl (Paxil) 40 mg PO DAILY [facility] Polyethylene Glycol (Miralax) 17 gm PO BEDTIME PRN PRN Reason: Constipation Sodium Chloride (Saline Flush) 10 ml FLUSH ASDIRECTED PRN PRN Reason: Keep Vein Open Sodium Chloride (Saline Flush) 2.5 ml FLUSH ASDIRECTED PRN PRN Reason: Keep Vein Open Thiamine HCl (Vitamin B-1) 100 mg IV DAILY [facility] Last Admin: 01/18/18 08:39 Dose: 100 mg Admin: 01/17/18 09:31 Dose: 100 mg Admin: 01/16/18 08:09 Dose: 100 mg Wound Care/Dressing Products (Duoderm Cgf) 1 each TOP Q6H PRN PRN Reason: blister Last Admin: 01/17/18 23:22 Dose: 1 each - Plan Plan (Free Text/Narrative):: Agree with above. If patient is unable to afford the Lovenox, would recommend ASA 325mg po bid with emphasis on mobilization. Change dressing Monday. Patient is orthopedically stable. Will sign off at this time and arrange for outpatient care. Please reconsult if there are other concerns. Thank you. erin
[2018-01-18] MEDS: Nicotine 14 MG/24 Hr Patch TRDERM SCH (10:52)
[2018-01-18] MEDS: Enoxaparin 40 MG/0.4 ML Syringe SUBCUT SCH (20:47)
[2018-01-18] MEDS: Polyethylene Glycol 3350 Powder 17 GM Packet PO PRN (20:50)
[2018-01-19 06:24] LABS: CHLORIDE,CL 100 mmol/L (98-107); SODIUM,NA 137 mmol/L (136-145)
[2018-01-19] MEDS: Levothyroxine 100 MCG Tab PO SCH (06:31)
--- NOTE | 2018-01-19 08:37 | PCM.PN ---
- General Info Date of Service: 01/19/18 Admission Dx/Problem (Free Text): Admission Diagnosis/Problem Admission Diagnosis/Problem Hip fracture, intertrochanteric Subjective Update: Feeling rushed with cares and having breakfast interrupted. Denies any other concerns. Pain is well controlled. Denies chest pain or SOB. Continues to have blisters, which are opened and healing to L hip post dressing removal. Eager for shower today. Functional Status: Reports: Pain Controlled, Tolerating Diet, Ambulating, Urinating - Review of Systems General: Reports: No Symptoms. Denies: Fever, Weakness, Fatigue, Malaise HEENT: Reports: No Symptoms. Denies: Headaches, Sore Throat, Visual Changes Pulmonary: Reports: No Symptoms. Denies: Shortness of Breath Cardiovascular: Reports: No Symptoms. Denies: Chest Pain Gastrointestinal: Reports: No Symptoms. Denies: Abdominal Pain, Nausea, Vomiting Genitourinary: Reports: No Symptoms. Denies: Dysuria, Frequency, Burning Musculoskeletal: Reports: No Symptoms Skin: Reports: Other (blisters to L hip) Neurological: Reports: No Symptoms. Denies: Tremors Psychiatric: Reports: No Symptoms - Patient Data Vitals - Most Recent: Last Vital Signs Temp 97.9 F 01/19/18 03:00 Pulse 73 01/19/18 03:00 Resp 18 01/19/18 03:00 BP 116/60 01/19/18 03:00 Pulse Ox 95 01/19/18 03:00 Weight - Most Recent: 64 kg I&O - Last 24 Hours: Intake & Output 01/18/18 01/19/18 01/19/18 22:59 06:59 14:59 Intake Total 1000 800 Output Total 800 1900 Balance 200 -1100 Lab Results Last 24 Hours: Laboratory Results - last 24 hr 01/19/18 01/19/18 Range/Units 05:45 05:45 WBC 8.20 (4.0-11.0) K/uL RBC 3.14 L (4.30-5.90) M/uL Hgb 9.6 L (12.0-16.0) g/dL Hct 30.4 L (36.0-46.0) % MCV 96.8 (80.0-98.0) fL MCH 30.6 (27.0-32.0) pg MCHC 31.6 (31.0-37.0) g/dL RDW Std Deviation 53.8 (28.0-62.0) fl RDW Coeff of Mallory 15 (11.0-15.0) % Plt Count 263 (150-400) K/uL MPV 10.30 (7.40-12.00) fL Add Manual Diff YES Neutrophils % (Manual) 54 (48.0-80.0) % Band Neutrophils % 3 % Lymphocytes % (Manual) 20 (16.0-40.0) % Monocytes % (Manual) 14 (0.0-15.0) % Eosinophils % (Manual) 6 (0.0-7.0) % Basophils % (Manual) 3 H (0.0-1.5) % Nucleated RBC % 0.0 /100WBC Absolute Seg Neuts 4.4 (1.4-5.7) Band Neutrophils # 0.2 Lymphocytes # (Manual) 1.6 (0.6-2.4) Monocytes # (Manual) 1.1 H (0.0-0.8) Eosinophils # (Manual) 0.5 (0.0-0.7) Basophils # (Manual) 0.2 H (0.0-0.1) Nucleated RBCs # 0 K/uL Sodium 137 (136-145) mmol/L Potassium 3.5 (3.5-5.1) mmol/L Chloride 100 (98-107) mmol/L Carbon Dioxide 34.6 H (21.0-32.0) mmol/L BUN 9 (7.0-18.0) mg/dL Creatinine 0.7 (0.6-1.0) mg/dL Est Cr Clr Drug Dosing 60.46 mL/min Estimated GFR (MDRD) > 60.0 ml/min Glucose 95 (74-106) mg/dL Calcium 8.6 (8.5-10.1) mg/dL Med Orders - Current: Current Medications Benzocaine/Menthol (Cepacol Sore Throat) 1 lozenge MUCMEM 6XDAY PRN PRN Reason: Sore Throat Bisacodyl (Dulcolax) 10 mg RECTAL DAILY PRN PRN Reason: Constipation Docusate Sodium (Colace) 100 mg PO BID [facility] Last Admin: 01/18/18 20:47 Dose: 100 mg Enoxaparin Sodium (Lovenox) 40 mg SUBCUT Q24H [facility] Last Admin: 01/18/18 20:47 Dose: 40 mg Folic Acid (Folic Acid) 1 mg SUBCUT DAILY [facility] Last Admin: 01/18/18 08:41 Dose: 1 mg Hydromorphone HCl (Dilaudid) 0.5 - 1 mg IVPUSH Q3H PRN PRN Reason: Pain Levothyroxine Sodium (Synthroid) 100 mcg PO ACBREAKFAST [facility] Last Admin: 01/19/18 06:31 Dose: 100 mcg Lorazepam (Ativan) 0 mg IVPUSH Q4H PRN; Protocol PRN Reason: CIWAA Nicotine (Habitrol) 14 mg TRDERM DAILY [facility] Last Admin: 01/18/18 10:52 Dose: 14 mg Ondansetron HCl (Zofran) 4 mg IVPUSH Q4H PRN PRN Reason: Nausea Oxycodone/Acetaminophen (Percocet 325-5 Mg) 1 - 2 tab PO Q4H PRN PRN Reason: Pain Last Admin: 01/18/18 18:50 Dose: 2 tab Paroxetine HCl (Paxil) 40 mg PO DAILY [facility] Polyethylene Glycol (Miralax) 17 gm PO BEDTIME PRN PRN Reason: Constipation Last Admin: 01/18/18 20:50 Dose: 17 gm Sodium Chloride (Saline Flush) 10 ml FLUSH ASDIRECTED PRN PRN Reason: Keep Vein Open Sodium Chloride (Saline Flush) 2.5 ml FLUSH ASDIRECTED PRN PRN Reason: Keep Vein Open Thiamine HCl (Vitamin B-1) 100 mg IV DAILY [facility] Last Admin: 01/18/18 08:39 Dose: 100 mg Wound Care/Dressing Products (Duoderm Cgf) 1 each TOP Q6H PRN PRN Reason: blister Last Admin: 01/17/18 23:22 Dose: 1 each Discontinued Medications Albuterol (Proventil Hfa) Confirm Administered Dose 6.7 gm INH .STK-MED ONE Stop: 01/15/18 16:11 Albuterol/Ipratropium (Duoneb 3.0-0.5 Mg/3 Ml) 3 ml NEB ONETIME ONE Stop: 01/15/18 16:27 Last Admin: 01/15/18 18:27 Dose: 3 ml Ephedrine Sulfate (Ephedrine Sulfate) Confirm Administered Dose 50 mg .ROUTE .STK-MED ONE Stop: 01/15/18 16:09 Fentanyl (Sublimaze) Confirm Administered Dose 250 mcg .ROUTE .STK-MED ONE Stop: 01/15/18 15:20 Fentanyl (Sublimaze) Confirm Administered Dose 100 mcg .ROUTE .STK-MED ONE Stop: 01/15/18 16:49 Fentanyl (Sublimaze) 50 mcg IVPUSH Q5M PRN PRN Reason: Pain (severe 7-10) Stop: 01/16/18 18:22 Glycopyrrolate (Robinul) Confirm Administered Dose 0.4 mg .ROUTE .STK-MED ONE Stop: 01/15/18 16:36 Hydromorphone HCl (Dilaudid [employer] 6 Mg In Ns 30 Ml) 0 mg IV ASDIRECTED PRN; Protocol PRN Reason: Pain Last Admin: 01/15/18 18:32 Dose: 6 mg Cefazolin Sodium/Dextrose 1 gm (/ Premix) 50 mls @ 100 mls/hr IV Q8H ONE Stop: 01/15/18 12:29 Last Admin: 01/15/18 19:53 Dose: Not Given Lactated Ringer's (Ringers, Lactated) 1,000 mls @ 125 mls/hr IV ASDIRECTED [facility] Last Admin: 01/15/18 09:15 Dose: 125 mls/hr Lactated Ringer's (Ringers, Lactated) 1,000 mls @ 75 mls/hr IV ASDIRECTED [facility] Last Admin: 01/16/18 01:27 Dose: 75 mls/hr Cefazolin Sodium/Dextrose 1 gm (/ Premix) 50 mls @ 100 mls/hr IV Q8H [facility] Stop: 01/16/18 13:29 Last Admin: 01/16/18 12:51 Dose: 100 mls/hr Magnesium Sulfate 2 gm/ Premix 50 mls @ 50 mls/hr IV ONETIME ONE Stop: 01/16/18 08:33 Last Admin: 01/16/18 08:08 Dose: 50 mls/hr Magnesium Sulfate 2 gm/ Premix 50 mls @ 50 mls/hr IV ONETIME ONE Stop: 01/17/18 10:02 Last Admin: 01/17/18 09:52 Dose: 50 mls/hr Iopamidol (Isovue Multipack-370 (76%)) 75 ml IVPUSH ONETIME STA Stop: 01/15/18 14:51 Last Admin: 01/15/18 14:51 Dose: 75 ml Ipratropium [place] (Atrovent Hfa) Confirm Administered Dose 12.9 gm .ROUTE .STK -MED ONE Stop: 01/15/18 16:11 Levothyroxine Sodium (Synthroid) 100 mcg PO DAILY [facility] Last Admin: 01/16/18 12:57 Dose: Not Given Lidocaine (Xylocaine-Mpf 2%) Confirm Administered Dose 5 ml .ROUTE .STK-MED ONE Stop: 01/15/18 15:20 Midazolam HCl (Versed 1 Mg/Ml) Confirm Administered Dose 2 mg .ROUTE .STK-MED ONE Stop: 01/15/18 15:20 Morphine Sulfate (Morphine) 2 mg IVPUSH ONETIME ONE Stop: 01/15/18 04:26 Last Admin: 01/15/18 04:35 Dose: 2 mg Morphine Sulfate (Morphine) 2 mg IVPUSH ONETIME ONE Stop: 01/15/18 05:18 Last Admin: 01/15/18 05:27 Dose: 2 mg Morphine Sulfate (Morphine) 2 mg IVPUSH ONETIME ONE Stop: 01/15/18 06:24 Last Admin: 01/15/18 06:28 Dose: 2 mg Morphine Sulfate (Morphine) 2 mg IVPUSH ONETIME ONE Stop: 01/15/18 07:02 Last Admin: 01/15/18 07:31 Dose: 2 mg Morphine Sulfate (Morphine) 2 mg IVPUSH Q2H PRN PRN Reason: pain Last Admin: 01/15/18 13:05 Dose: 2 mg Neostigmine Methylsulfate (Neostigmine) Confirm Administered Dose 5 mg .ROUTE .STK-MED ONE Stop: 01/15/18 16:36 Ondansetron HCl (Zofran) 4 mg IVPUSH ONETIME ONE Stop: 01/15/18 04:26 Last Admin: 01/15/18 04:36 Dose: 4 mg Ondansetron HCl (Zofran) Confirm Administered Dose 4 mg .ROUTE .STK-MED ONE Stop: 01/15/18 15:20 Paroxetine HCl (Paxil) 20 mg PO DAILY [facility] Last Admin: 01/18/18 08:40 Dose: 20 mg Paroxetine HCl (Paxil) 20 mg PO ONETIME ONE Stop: 01/18/18 09:34 Last Admin: 01/18/18 10:52 Dose: 20 mg Potassium Chloride (Klor-Con M20) 40 meq PO ONETIME ONE Stop: 01/18/18 07:43 Last Admin: 01/18/18 08:40 Dose: 40 meq Propofol (Diprivan 20 Ml) Confirm Administered Dose 200 mg .ROUTE .STK-MED ONE Stop: 01/15/18 15:20 Rocuronium [place] (Zemuron) Confirm Administered Dose 100 mg .ROUTE .STK-MED ONE Stop: 01/15/18 15:20 Sodium Phosphate (Neutra-Phos) 250 mg PO QID [facility] Stop: 01/18/18 06:01 Last Admin: 01/18/18 06:31 Dose: 250 mg Succinylcholine Chloride (Quelicin) Confirm Administered Dose 200 mg .ROUTE .STK -MED ONE Stop: 01/15/18 15:20 Sugammadex Sodium (Bridion) Confirm Administered Dose 200 mg .ROUTE .STK-MED ONE Stop: 01/15/18 16:41 Tranexamic Acid (Cyklokapron) Confirm Administered Dose 2,000 mg .ROUTE .STK- MED ONE Stop: 01/15/18 16:16 - Exam General: Alert, Oriented, Cooperative, No Acute Distress Neck: Supple Lungs: Clear to Auscultation, Normal Respiratory Effort Cardiovascular: Regular Rate, Regular Rhythm GI/Abdominal Exam: Normal Bowel Sounds, Soft, Non-Tender Extremities: Normal Inspection, Normal Range of Motion, Non-Tender, No Pedal Edema, Normal Capillary Refill Wound/Incisions: No: Erythema (blisters, healing to L hip and lower back from area where initial hip dressing was removed. having some irritation to this area due to briefs and friction from moving in bed. Will place tegaderm after shower to protect. NO erythema or drainage noted. No acute infection. ) Neurological: No New Focal Deficit Psy/Mental Status: Alert, Normal Affect, Normal Mood - Problem List & Annotations (1) Femoral neck fracture SNOMED Code(s): 6388186 Code(s): S72.009A - FRACTURE OF UNSP PART OF NECK OF UNSP FEMUR, INIT Status: Acute Current Visit: Yes Qualifiers: Encounter type: initial encounter Fracture type: closed Laterality: left Qualified Code(s): S72.002A - Fracture of unspecified part of neck of left femur, initial encounter for closed fracture (2) Cardiomegaly SNOMED Code(s): 3729118 Code(s): I51.7 - CARDIOMEGALY Status: Acute Current Visit: Yes (3) Tobacco abuse SNOMED Code(s): 543202394 Code(s): Z72.0 - TOBACCO USE Status: Chronic Current Visit: Yes (4) Alcohol abuse SNOMED Code(s): 73680820 Code(s): F10.10 - ALCOHOL ABUSE, UNCOMPLICATED Status: Chronic Current Visit: Yes (5) Depression SNOMED Code(s): 13946649 Code(s): F32.9 - MAJOR DEPRESSIVE DISORDER, SINGLE EPISODE, UNSPECIFIED Status: Chronic Current Visit: Yes (6) Anxiety SNOMED Code(s): 66340163 Code(s): F41.9 - ANXIETY DISORDER, UNSPECIFIED Status: Chronic Current Visit: Yes (7) Hypothyroid SNOMED Code(s): 31256198 Code(s): E03.9 - HYPOTHYROIDISM, UNSPECIFIED Status: Chronic Current Visit: Yes (8) Homeless single person SNOMED Code(s): 172675423 Code(s): Z59.0 - HOMELESSNESS Status: Chronic Current Visit: Yes - Problem List Review Problem List Initiated/Reviewed/Updated: Yes - My Orders Last 24 Hours: My Active Orders 01/18/18 09:03 Communication Order [RC] ROUTINE 01/19/18 09:00 PARoxetine [Paxil] 40 mg PO DAILY - Plan Plan:: This 67 year old female admitted with L femoral neck fracture 1. Femoral neck fracture: Continues to do well with PT and nursing to be up and ambulating and in chair. Plan for home with Home Health on Monday. Hgb 9.6 today. Has not had BM, continue bowel regimen. Passing flatus. Dr Cotto, Orthopedics consulted and have now signed off. Needs Lovenox daily for total of 4 weeks per Orthopedics. Julainna has agreed to this. Will have nursing walk patient through administration and have her administer it to herself over the weekend. 2. Alcohol abuse: Stable. Tremors improving. Continue CIWAA protocol with Ativan protocol. Supplement with Thiamine and Folic Acid daily. 4. Depression/Anxiety: Stable. Continue Paxil. 5. Hypothryoidism: Stable. Continue Levothyroxine. VTE prophylaxis: Lovenox Dispo: Home Monday with Home health. Continue PT
[2018-01-19] MEDS: Folic Acid 50 MG/10 ML MDV SUBCUT SCH (09:49)
[2018-01-19] MEDS: Thiamine 200 MG/2 ML MDV IV SCH (09:49)
[2018-01-19] MEDS: Docusate Sodium 100 MG Cap PO SCH ×2 (09:50→21:35)
[2018-01-19] MEDS: PARoxetine 20 MG Tab PO SCH (09:50)
[2018-01-19] MEDS: Nicotine 14 MG/24 Hr Patch TRDERM SCH (09:51)
[2018-01-19] MEDS: Acetaminophen/oxyCODONE 325-5 MG Tab PO PRN (11:21)
[2018-01-19] MEDS: Polyethylene Glycol 3350 Powder 17 GM Packet PO PRN (21:35)
[2018-01-19] MEDS: Enoxaparin 40 MG/0.4 ML Syringe SUBCUT SCH (21:35)
[2018-01-20] MEDS: Acetaminophen/oxyCODONE 325-5 MG Tab PO PRN ×3 (00:01→22:07)
[2018-01-20] MEDS: Levothyroxine 100 MCG Tab PO SCH (06:33)
[2018-01-20] MEDS: Docusate Sodium 100 MG Cap PO SCH ×2 (10:31→20:21)
[2018-01-20] MEDS: PARoxetine 20 MG Tab PO SCH (10:31)
[2018-01-20] MEDS: Thiamine 200 MG/2 ML MDV IV SCH (10:32)
[2018-01-20] MEDS: Folic Acid 50 MG/10 ML MDV SUBCUT SCH (10:32)
[2018-01-20] MEDS: Nicotine 14 MG/24 Hr Patch TRDERM SCH (10:33)
--- NOTE | 2018-01-20 14:35 | PCM.PN ---
- General Info Date of Service: 01/20/18 - Review of Systems Systems Review Comment:: no new complaints - Patient Data Vitals - Most Recent: Last Vital Signs Temp 36.8 C 01/20/18 12:00 Pulse 73 01/20/18 12:00 Resp 14 01/20/18 12:00 BP 112/70 01/20/18 12:00 Pulse Ox 93 L 01/20/18 12:00 Weight - Most Recent: 62.5 kg I&O - Last 24 Hours: Intake & Output 01/19/18 01/20/18 01/20/18 22:59 06:59 14:59 Intake Total 1000 1000 Output Total 1050 1600 Balance -50 -600 Med Orders - Current: Current Medications Benzocaine/Menthol (Cepacol Sore Throat) 1 lozenge MUCMEM 6XDAY PRN PRN Reason: Sore Throat Bisacodyl (Dulcolax) 10 mg RECTAL DAILY PRN PRN Reason: Constipation Last Admin: 01/20/18 10:47 Dose: 10 mg Docusate Sodium (Colace) 100 mg PO BID [facility] Last Admin: 01/20/18 10:31 Dose: 100 mg Enoxaparin Sodium (Lovenox) 40 mg SUBCUT Q24H [facility] Last Admin: 01/19/18 21:35 Dose: 40 mg Folic Acid (Folic Acid) 1 mg SUBCUT DAILY [facility] Last Admin: 01/20/18 10:32 Dose: 1 mg Hydromorphone HCl (Dilaudid) 0.5 - 1 mg IVPUSH Q3H PRN PRN Reason: Pain Levothyroxine Sodium (Synthroid) 100 mcg PO ACBREAKFAST [facility] Last Admin: 01/20/18 06:33 Dose: 100 mcg Lorazepam (Ativan) 0 mg IVPUSH Q4H PRN; Protocol PRN Reason: CIWAA Nicotine (Habitrol) 14 mg TRDERM DAILY [facility] Last Admin: 01/20/18 10:33 Dose: 14 mg Ondansetron HCl (Zofran) 4 mg IVPUSH Q4H PRN PRN Reason: Nausea Oxycodone/Acetaminophen (Percocet 325-5 Mg) 1 - 2 tab PO Q4H PRN PRN Reason: Pain Last Admin: 01/20/18 00:01 Dose: 2 tab Paroxetine HCl (Paxil) 40 mg PO DAILY [facility] Last Admin: 01/20/18 10:31 Dose: 40 mg Polyethylene Glycol (Miralax) 17 gm PO BEDTIME PRN PRN Reason: Constipation Last Admin: 01/19/18 21:35 Dose: 17 gm Sodium Chloride (Saline Flush) 10 ml FLUSH ASDIRECTED PRN PRN Reason: Keep Vein Open Sodium Chloride (Saline Flush) 2.5 ml FLUSH ASDIRECTED PRN PRN Reason: Keep Vein Open Thiamine HCl (Vitamin B-1) 100 mg IV DAILY [facility] Last Admin: 01/20/18 10:32 Dose: 100 mg Wound Care/Dressing Products (Duoderm Cgf) 1 each TOP Q6H PRN PRN Reason: blister Last Admin: 01/17/18 23:22 Dose: 1 each Discontinued Medications Albuterol (Proventil Hfa) Confirm Administered Dose 6.7 gm INH .STK-MED ONE Stop: 01/15/18 16:11 Albuterol/Ipratropium (Duoneb 3.0-0.5 Mg/3 Ml) 3 ml NEB ONETIME ONE Stop: 01/15/18 16:27 Last Admin: 01/15/18 18:27 Dose: 3 ml Ephedrine Sulfate (Ephedrine Sulfate) Confirm Administered Dose 50 mg .ROUTE .STK-MED ONE Stop: 01/15/18 16:09 Fentanyl (Sublimaze) Confirm Administered Dose 250 mcg .ROUTE .STK-MED ONE Stop: 01/15/18 15:20 Fentanyl (Sublimaze) Confirm Administered Dose 100 mcg .ROUTE .STK-MED ONE Stop: 01/15/18 16:49 Fentanyl (Sublimaze) 50 mcg IVPUSH Q5M PRN PRN Reason: Pain (severe 7-10) Stop: 01/16/18 18:22 Glycopyrrolate (Robinul) Confirm Administered Dose 0.4 mg .ROUTE .STK-MED ONE Stop: 01/15/18 16:36 Hydromorphone HCl (Dilaudid [employer] Merchandiser 6 Mg In Ns 30 Ml) 0 mg IV ASDIRECTED PRN; Protocol PRN Reason: Pain Last Admin: 01/15/18 18:32 Dose: 6 mg Cefazolin Sodium/Dextrose 1 gm (/ Premix) 50 mls @ 100 mls/hr IV Q8H ONE Stop: 01/15/18 12:29 Last Admin: 01/15/18 19:53 Dose: Not Given Lactated Ringer's (Ringers, Lactated) 1,000 mls @ 125 mls/hr IV ASDIRECTED [facility] Last Admin: 01/15/18 09:15 Dose: 125 mls/hr Lactated Ringer's (Ringers, Lactated) 1,000 mls @ 75 mls/hr IV ASDIRECTED [facility] Last Admin: 01/16/18 01:27 Dose: 75 mls/hr Cefazolin Sodium/Dextrose 1 gm (/ Premix) 50 mls @ 100 mls/hr IV Q8H [facility] Stop: 01/16/18 13:29 Last Admin: 01/16/18 12:51 Dose: 100 mls/hr Magnesium Sulfate 2 gm/ Premix 50 mls @ 50 mls/hr IV ONETIME ONE Stop: 01/16/18 08:33 Last Admin: 01/16/18 08:08 Dose: 50 mls/hr Magnesium Sulfate 2 gm/ Premix 50 mls @ 50 mls/hr IV ONETIME ONE Stop: 01/17/18 10:02 Last Admin: 01/17/18 09:52 Dose: 50 mls/hr Iopamidol (Isovue Multipack-370 (76%)) 75 ml IVPUSH ONETIME STA Stop: 01/15/18 14:51 Last Admin: 01/15/18 14:51 Dose: 75 ml Ipratropium [place] (Atrovent Hfa) Confirm Administered Dose 12.9 gm .ROUTE .STK -MED ONE Stop: 01/15/18 16:11 Levothyroxine Sodium (Synthroid) 100 mcg PO DAILY [facility] Last Admin: 01/16/18 12:57 Dose: Not Given Lidocaine (Xylocaine-Mpf 2%) Confirm Administered Dose 5 ml .ROUTE .STK-MED ONE Stop: 01/15/18 15:20 Midazolam HCl (Versed 1 Mg/Ml) Confirm Administered Dose 2 mg .ROUTE .STK-MED ONE Stop: 01/15/18 15:20 Morphine Sulfate (Morphine) 2 mg IVPUSH ONETIME ONE Stop: 01/15/18 04:26 Last Admin: 01/15/18 04:35 Dose: 2 mg Morphine Sulfate (Morphine) 2 mg IVPUSH ONETIME ONE Stop: 01/15/18 05:18 Last Admin: 01/15/18 05:27 Dose: 2 mg Morphine Sulfate (Morphine) 2 mg IVPUSH ONETIME ONE Stop: 01/15/18 06:24 Last Admin: 01/15/18 06:28 Dose: 2 mg Morphine Sulfate (Morphine) 2 mg IVPUSH ONETIME ONE Stop: 01/15/18 07:02 Last Admin: 01/15/18 07:31 Dose: 2 mg Morphine Sulfate (Morphine) 2 mg IVPUSH Q2H PRN PRN Reason: pain Last Admin: 01/15/18 13:05 Dose: 2 mg Neostigmine Methylsulfate (Neostigmine) Confirm Administered Dose 5 mg .ROUTE .STK-MED ONE Stop: 01/15/18 16:36 Ondansetron HCl (Zofran) 4 mg IVPUSH ONETIME ONE Stop: 01/15/18 04:26 Last Admin: 01/15/18 04:36 Dose: 4 mg Ondansetron HCl (Zofran) Confirm Administered Dose 4 mg .ROUTE .STK-MED ONE Stop: 01/15/18 15:20 Paroxetine HCl (Paxil) 20 mg PO DAILY [facility] Last Admin: 01/18/18 08:40 Dose: 20 mg Paroxetine HCl (Paxil) 20 mg PO ONETIME ONE Stop: 01/18/18 09:34 Last Admin: 01/18/18 10:52 Dose: 20 mg Potassium Chloride (Klor-Con M20) 40 meq PO ONETIME ONE Stop: 01/18/18 07:43 Last Admin: 01/18/18 08:40 Dose: 40 meq Propofol (Diprivan 20 Ml) Confirm Administered Dose 200 mg .ROUTE .STK-MED ONE Stop: 01/15/18 15:20 Rocuronium [place] (Zemuron) Confirm Administered Dose 100 mg .ROUTE .STK-MED ONE Stop: 01/15/18 15:20 Sodium Phosphate (Neutra-Phos) 250 mg PO QID [facility] Stop: 01/18/18 06:01 Last Admin: 01/18/18 06:31 Dose: 250 mg Succinylcholine Chloride (Quelicin) Confirm Administered Dose 200 mg .ROUTE .STK -MED ONE Stop: 01/15/18 15:20 Sugammadex Sodium (Bridion) Confirm Administered Dose 200 mg .ROUTE .STK-MED ONE Stop: 01/15/18 16:41 Tranexamic Acid (Cyklokapron) Confirm Administered Dose 2,000 mg .ROUTE .STK- MED ONE Stop: 01/15/18 16:16 - Exam General: Alert, Oriented Lungs: Clear to Auscultation, Normal Respiratory Effort Cardiovascular: Regular Rate, Regular Rhythm GI/Abdominal Exam: Soft, Non-Tender Extremities: No Pedal Edema - Problem List Review Problem List Initiated/Reviewed/Updated: Yes - Plan Plan:: This 67 year old female admitted with L femoral neck fracture 1. Femoral neck fracture: s/p repair, continue PT Dispo: anticipate discharge on Monday
[2018-01-20] MEDS: Enoxaparin 40 MG/0.4 ML Syringe SUBCUT SCH (20:21)
[2018-01-21] MEDS: Levothyroxine 100 MCG Tab PO SCH (06:44)
[2018-01-21] MEDS: Folic Acid 50 MG/10 ML MDV SUBCUT SCH (08:57)
[2018-01-21] MEDS: Docusate Sodium 100 MG Cap PO SCH ×2 (08:57→20:58)
[2018-01-21] MEDS: PARoxetine 20 MG Tab PO SCH (08:57)
[2018-01-21] MEDS: Thiamine 200 MG/2 ML MDV IV SCH ×2 (09:02→10:07)
[2018-01-21] MEDS: Nicotine 14 MG/24 Hr Patch TRDERM SCH (09:02)
[2018-01-21] MEDS ORDERED: Cyclobenzaprine 5 MG Tab PO PRN (09:25)
--- NOTE | 2018-01-21 09:27 | PCM.PN ---
- General Info Date of Service: 01/21/18 - Review of Systems Systems Review Comment:: no new complaints - Patient Data Vitals - Most Recent: Last Vital Signs Temp 36.6 C 01/21/18 04:00 Pulse 79 01/21/18 08:00 Resp 16 01/21/18 08:00 BP 105/61 01/21/18 08:00 Pulse Ox 92 L 01/21/18 08:00 Weight - Most Recent: 63.5 kg I&O - Last 24 Hours: Intake & Output 01/20/18 01/21/18 01/21/18 22:59 06:59 14:59 Intake Total 800 250 Output Total 700 500 Balance 100 -250 Med Orders - Current: Current Medications Benzocaine/Menthol (Cepacol Sore Throat) 1 lozenge MUCMEM 6XDAY PRN PRN Reason: Sore Throat Bisacodyl (Dulcolax) 10 mg RECTAL DAILY PRN PRN Reason: Constipation Last Admin: 01/20/18 10:47 Dose: 10 mg Docusate Sodium (Colace) 100 mg PO BID [facility] Last Admin: 01/21/18 08:57 Dose: 100 mg Enoxaparin Sodium (Lovenox) 40 mg SUBCUT Q24H [facility] Last Admin: 01/20/18 20:21 Dose: 40 mg Folic Acid (Folic Acid) 1 mg SUBCUT DAILY [facility] Last Admin: 01/21/18 08:57 Dose: 1 mg Hydromorphone HCl (Dilaudid) 0.5 - 1 mg IVPUSH Q3H PRN PRN Reason: Pain Levothyroxine Sodium (Synthroid) 100 mcg PO ACBREAKFAST [facility] Last Admin: 01/21/18 06:44 Dose: 100 mcg Lorazepam (Ativan) 0 mg IVPUSH Q4H PRN; Protocol PRN Reason: CIWAA Nicotine (Habitrol) 14 mg TRDERM DAILY [facility] Last Admin: 01/21/18 09:02 Dose: 14 mg Ondansetron HCl (Zofran) 4 mg IVPUSH Q4H PRN PRN Reason: Nausea Oxycodone/Acetaminophen (Percocet 325-5 Mg) 1 - 2 tab PO Q4H PRN PRN Reason: Pain Last Admin: 01/20/18 22:07 Dose: 2 tab Paroxetine HCl (Paxil) 40 mg PO DAILY [facility] Last Admin: 01/21/18 08:57 Dose: 40 mg Polyethylene Glycol (Miralax) 17 gm PO BEDTIME PRN PRN Reason: Constipation Last Admin: 01/19/18 21:35 Dose: 17 gm Sodium Chloride (Saline Flush) 10 ml FLUSH ASDIRECTED PRN PRN Reason: Keep Vein Open Sodium Chloride (Saline Flush) 2.5 ml FLUSH ASDIRECTED PRN PRN Reason: Keep Vein Open Thiamine HCl (Vitamin B-1) 100 mg IV DAILY [facility] Last Admin: 01/20/18 10:32 Dose: 100 mg Wound Care/Dressing Products (Duoderm Cgf) 1 each TOP Q6H PRN PRN Reason: blister Last Admin: 01/17/18 23:22 Dose: 1 each Discontinued Medications Albuterol (Proventil Hfa) Confirm Administered Dose 6.7 gm INH .STK-MED ONE Stop: 01/15/18 16:11 Albuterol/Ipratropium (Duoneb 3.0-0.5 Mg/3 Ml) 3 ml NEB ONETIME ONE Stop: 01/15/18 16:27 Last Admin: 01/15/18 18:27 Dose: 3 ml Ephedrine Sulfate (Ephedrine Sulfate) Confirm Administered Dose 50 mg .ROUTE .STK-MED ONE Stop: 01/15/18 16:09 Fentanyl (Sublimaze) Confirm Administered Dose 250 mcg .ROUTE .STK-MED ONE Stop: 01/15/18 15:20 Fentanyl (Sublimaze) Confirm Administered Dose 100 mcg .ROUTE .STK-MED ONE Stop: 01/15/18 16:49 Fentanyl (Sublimaze) 50 mcg IVPUSH Q5M PRN PRN Reason: Pain (severe 7-10) Stop: 01/16/18 18:22 Glycopyrrolate (Robinul) Confirm Administered Dose 0.4 mg .ROUTE .STK-MED ONE Stop: 01/15/18 16:36 Hydromorphone HCl (Dilaudid [employer] 6 Mg In Ns 30 Ml) 0 mg IV ASDIRECTED PRN; Protocol PRN Reason: Pain Last Admin: 01/15/18 18:32 Dose: 6 mg Cefazolin Sodium/Dextrose 1 gm (/ Premix) 50 mls @ 100 mls/hr IV Q8H ONE Stop: 01/15/18 12:29 Last Admin: 01/15/18 19:53 Dose: Not Given Lactated Ringer's (Ringers, Lactated) 1,000 mls @ 125 mls/hr IV ASDIRECTED [facility] Last Admin: 01/15/18 09:15 Dose: 125 mls/hr Lactated Ringer's (Ringers, Lactated) 1,000 mls @ 75 mls/hr IV ASDIRECTED [facility] Last Admin: 01/16/18 01:27 Dose: 75 mls/hr Cefazolin Sodium/Dextrose 1 gm (/ Premix) 50 mls @ 100 mls/hr IV Q8H [facility] Stop: 01/16/18 13:29 Last Admin: 01/16/18 12:51 Dose: 100 mls/hr Magnesium Sulfate 2 gm/ Premix 50 mls @ 50 mls/hr IV ONETIME ONE Stop: 01/16/18 08:33 Last Admin: 01/16/18 08:08 Dose: 50 mls/hr Magnesium Sulfate 2 gm/ Premix 50 mls @ 50 mls/hr IV ONETIME ONE Stop: 01/17/18 10:02 Last Admin: 01/17/18 09:52 Dose: 50 mls/hr Iopamidol (Isovue Multipack-370 (76%)) 75 ml IVPUSH ONETIME STA Stop: 01/15/18 14:51 Last Admin: 01/15/18 14:51 Dose: 75 ml Ipratropium [place] (Atrovent Hfa) Confirm Administered Dose 12.9 gm .ROUTE .STK -MED ONE Stop: 01/15/18 16:11 Levothyroxine Sodium (Synthroid) 100 mcg PO DAILY [facility] Last Admin: 01/16/18 12:57 Dose: Not Given Lidocaine (Xylocaine-Mpf 2%) Confirm Administered Dose 5 ml .ROUTE .STK-MED ONE Stop: 01/15/18 15:20 Midazolam HCl (Versed 1 Mg/Ml) Confirm Administered Dose 2 mg .ROUTE .STK-MED ONE Stop: 01/15/18 15:20 Morphine Sulfate (Morphine) 2 mg IVPUSH ONETIME ONE Stop: 01/15/18 04:26 Last Admin: 01/15/18 04:35 Dose: 2 mg Morphine Sulfate (Morphine) 2 mg IVPUSH ONETIME ONE Stop: 01/15/18 05:18 Last Admin: 01/15/18 05:27 Dose: 2 mg Morphine Sulfate (Morphine) 2 mg IVPUSH ONETIME ONE Stop: 01/15/18 06:24 Last Admin: 01/15/18 06:28 Dose: 2 mg Morphine Sulfate (Morphine) 2 mg IVPUSH ONETIME ONE Stop: 01/15/18 07:02 Last Admin: 01/15/18 07:31 Dose: 2 mg Morphine Sulfate (Morphine) 2 mg IVPUSH Q2H PRN PRN Reason: pain Last Admin: 01/15/18 13:05 Dose: 2 mg Neostigmine Methylsulfate (Neostigmine) Confirm Administered Dose 5 mg .ROUTE .STK-MED ONE Stop: 01/15/18 16:36 Ondansetron HCl (Zofran) 4 mg IVPUSH ONETIME ONE Stop: 01/15/18 04:26 Last Admin: 01/15/18 04:36 Dose: 4 mg Ondansetron HCl (Zofran) Confirm Administered Dose 4 mg .ROUTE .STK-MED ONE Stop: 01/15/18 15:20 Paroxetine HCl (Paxil) 20 mg PO DAILY [facility] Last Admin: 01/18/18 08:40 Dose: 20 mg Paroxetine HCl (Paxil) 20 mg PO ONETIME ONE Stop: 01/18/18 09:34 Last Admin: 01/18/18 10:52 Dose: 20 mg Potassium Chloride (Klor-Con M20) 40 meq PO ONETIME ONE Stop: 01/18/18 07:43 Last Admin: 01/18/18 08:40 Dose: 40 meq Propofol (Diprivan 20 Ml) Confirm Administered Dose 200 mg .ROUTE .STK-MED ONE Stop: 01/15/18 15:20 Rocuronium [place] (Zemuron) Confirm Administered Dose 100 mg .ROUTE .STK-MED ONE Stop: 01/15/18 15:20 Sodium Phosphate (Neutra-Phos) 250 mg PO QID [facility] Stop: 01/18/18 06:01 Last Admin: 01/18/18 06:31 Dose: 250 mg Succinylcholine Chloride (Quelicin) Confirm Administered Dose 200 mg .ROUTE .STK -MED ONE Stop: 01/15/18 15:20 Sugammadex Sodium (Bridion) Confirm Administered Dose 200 mg .ROUTE .STK-MED ONE Stop: 01/15/18 16:41 Tranexamic Acid (Cyklokapron) Confirm Administered Dose 2,000 mg .ROUTE .STK- MED ONE Stop: 01/15/18 16:16 - Exam General: Alert, Oriented Lungs: Clear to Auscultation, Normal Respiratory Effort Cardiovascular: Regular Rate, Regular Rhythm GI/Abdominal Exam: Soft, Non-Tender Skin: Warm, Dry, Intact Neurological: No: No New Focal Deficit - Problem List Review Problem List Initiated/Reviewed/Updated: Yes - Plan Plan:: This 67 year old female admitted with L femoral neck fracture 1. Femoral neck fracture: s/p repair, Dispo: anticipate discharge tomorrow
[2018-01-21] MEDS: Acetaminophen/oxyCODONE 325-5 MG Tab PO PRN ×2 (14:46→23:09)
[2018-01-21] MEDS: Enoxaparin 40 MG/0.4 ML Syringe SUBCUT SCH (20:59)
[2018-01-22] MEDS: Levothyroxine 100 MCG Tab PO SCH (06:36)
[2018-01-22] MEDS: PARoxetine 20 MG Tab PO SCH (08:38)
[2018-01-22] MEDS: Folic Acid 50 MG/10 ML MDV SUBCUT SCH (08:38)
[2018-01-22] MEDS: Docusate Sodium 100 MG Cap PO SCH (08:38)
[2018-01-22] MEDS: Nicotine 14 MG/24 Hr Patch TRDERM SCH (08:39)
--- NOTE | 2018-01-22 09:25 | PCM.DCSUM1 ---
Discharge Summary - Hospital Course Brief History: This 67 year old female with pmh of anxiety/depression and hypothyroidism, tobacco abuse and alcohol abuse presented to the ED after sustaining a fall last evening. She reports she was going doing the stairs and slipped on a stair with approximately 3-4 stairs left, landing on her butt and had instant pain to her L hip. She denies hitting her head or LOC. She denies being dizzy or lightheaded prior to falling. SHe reports she laid on the floor for maybe an hour than slowly crawled to the phone in the kitchen to call EMS. She reports feeling otherwise healthy up until falling. NO fevers, chest pain palpitations or shortness of breath. She does drink daily 3-5 drinks daily of wine and smokes 1 ppd for many years. She denies heart disease or HTN, no DM or COPD. Her last drink of alcohol was last evening around 8 pm. She reports she does have tremors when she wakes up daily and goes away when she takes her Paxil. Denies seizures. In the ED slightly leukocytosis noted, 12,520. BMP WNL. VS stable with BP 130-140/60-70s. 95% on RA and HR 70-90s. L hip xray revealed L femoral neck fracture. CXR obtained as well which revealed cardiomegaly with right retrocardiac density. She again denies history of cardiac health issues, but reports having a surgery in September where she reports they had to cancel due to dropping oxygen saturations. Orthopedics consulted for L femoral neck fracture. Patient admitted to hospitalist team. She reports she is here in [place], clearing out her father's house. He recently . She and her brothers do not live here. She lives in the [place] area and is homeless. She ultimately plans to return to [place] when she is able and the house is sold. - Discharge Data Discharge Date: 01/22/18 Discharge Disposition: Home, W Home Health Agency Condition: Stable - Discharge Diagnosis/Problem(s) (1) Femoral neck fracture SNOMED Code(s): 4944377 ICD Code: S72.009A - FRACTURE OF UNSP PART OF NECK OF UNSP FEMUR, INIT Status: Acute Current Visit: Yes Qualifiers: Encounter type: initial encounter Fracture type: closed Laterality: left Qualified Code(s): S72.002A - Fracture of unspecified part of neck of left femur, initial encounter for closed fracture (2) Cardiomegaly SNOMED Code(s): 8393824 ICD Code: I51.7 - CARDIOMEGALY Status: Acute Current Visit: Yes (3) Tobacco abuse SNOMED Code(s): 463947111 ICD Code: Z72.0 - TOBACCO USE Status: Chronic Current Visit: Yes (4) Alcohol abuse SNOMED Code(s): 72350119 ICD Code: F10.10 - ALCOHOL ABUSE, UNCOMPLICATED Status: Chronic Current Visit: Yes (5) Depression SNOMED Code(s): 58209081 ICD Code: F32.9 - MAJOR DEPRESSIVE DISORDER, SINGLE EPISODE, UNSPECIFIED Status: Chronic Current Visit: Yes (6) Anxiety SNOMED Code(s): 35966968 ICD Code: F41.9 - ANXIETY DISORDER, UNSPECIFIED Status: Chronic Current Visit: Yes (7) Hypothyroid SNOMED Code(s): 90216176 ICD Code: E03.9 - HYPOTHYROIDISM, UNSPECIFIED Status: Chronic Current Visit: Yes (8) Homeless single person SNOMED Code(s): 280678522 ICD Code: Z59.0 - HOMELESSNESS Status: Chronic Current Visit: Yes (9) S/P hip hemiarthroplasty SNOMED Code(s): 081373728, 840391239 ICD Code: Z96.649 - PRESENCE OF UNSPECIFIED ARTIFICIAL HIP JOINT Status: Acute Current Visit: Yes - Patient Summary/Data Operative Procedure(s) Performed: L hip hemiarthroplasty Consults: Consultations 01/15/18 08:00 Consult to Physician [CONS] Urgent 01/15/18 10:50 Consult to Physician [CONS] Routine 01/16/18 09:00 PT Evaluation and Treatment [CONS] Routine - Patient Instructions Diet: Regular Diet as Tolerated Activity: Full Weight Bearing, No Strenuous Activities Activity, Other: hip Abduction pillow at night, posterior hip precautions, use walker Driving: Do Not Drive Showering/Bathing: May Shower, No Tub Bathing/Swimming Notify Provider of: Fever, Increased Pain, Swelling and Redness, Drainage, Nausea and/or Vomiting Other/Special Instructions: Highly encouraged smoking cessation and alcohol cessation as well. - Discharge Plan Prescriptions/Med Rec: Acetaminophen/oxyCODONE [Percocet 325-5 MG] 1 - 2 tab PO Q4H PRN #30 tablet PRN Reason: Pain Docusate Sodium [Colace] 100 mg PO BID #60 cap Enoxaparin [Lovenox] 40 mg SUBCUT Q24H #22 syringe Multivitamin-Min/Iron/FA/Vit K [Multi-Day Plus Minerals Tablet] 1 each PO DAILY #1 tablet Home Medications: Home Meds PARoxetine [Paxil] 40 mg PO DAILY 01/15/18 [History] Levothyroxine [Synthroid] 100 mcg PO DAILY 01/16/18 [History] Acetaminophen/oxyCODONE [Percocet 325-5 MG] 1 - 2 tab PO Q4H PRN #30 tablet [Rx] Docusate Sodium [Colace] 100 mg PO BID #60 cap 01/22/18 [Rx] Enoxaparin [Lovenox] 40 mg SUBCUT Q24H #22 syringe 01/22/18 [Rx] Multivitamin-Min/Iron/FA/Vit K [Multi-Day Plus Minerals Tablet] 1 each PO DAILY #1 tablet 01/22/18 [Rx] Polyethylene Glycol 3350 [MiraLAX] 17 gm PO BEDTIME PRN packet 01/22/18 [Rx] Patient Handouts: Coping with Quitting Smoking, Health Risks of Smoking, How to Use a Walker, Hip Fracture Treated With ORIF, Steps to Quit Smoking Referrals: Willis Nguyễn MD [Resident] - 01/29/18 2:30 pm Karen Mitchell PA [Physician Dockworker] - 01/29/18 1:00 pm - Discharge Summary/Plan Comment DC Time >30 min.: No Discharge Summary/Plan Comment: Discharge Diagnoses: S/P L hip hemiarthoplasty Anxiety Hypothyroidism Cardiomegaly Tobacco abuse Alcohol abuse homeless Julianna was admitted to the Hospitalist service for medical clearance prior to surgical intervention for L hip hemiarthoplasty. She was cleared medically and underwent L hip hemiarthoplasty. Please see Dr Cotto's Operative report. She tolerated procedure well and was monitored the following days for any complications. She was weaned off oxygen and had very few complications post- operatively. She remained hemodynamically stable. She was started on Lovenox 40 mg daily for VTE prophylaxis and will need to keep on this for a total of 4 weeks per Orthopedics. She did well with PT during her stay and is up nearly independent. She will be discharged home today. She is planning to stay in her father's house until more stable and ready to make a trip back home to [place] with her brothers. She will be discharged home today with Home Health. She is in need of senior living care due to the need for education and follow up care for Lovenox injections and incisional care to L hip and personal cares. She is also in need for PT/OT to evaluate and treat for S/P L hemiarthoplasty, unsteady gait and the need for rehabilitation for both ambulation and strengthening as well as evaluation on needs for ADLs. She is home bound and unable to ambulate without the assistance of a walker and is unable to drive until further cleared by Orthopedics, she needs caregiver/ brothers to help with leaving the house. Plan of care to be followed by PCP, Dr Nguyễn. She was offered nicotine replacement medication or patches which she declined. She was highly encouraged to stop drinking due to its healths risks along with the risk of falling again if she were to become intoxicated. We also discussed the importance of staying away from alcohol when she is taking narcotics for pain medication due to the sedating effects. She verbalized understanding. Brothers also encouraged not to provide her with alcohol due to its health risks and risks of over sedation with pain medications. They verbalized understanding as well. She will be discharged home today. She is to continue hip precautions and home medications, Paxil and Levothyroxine. She will be given 22 more doses of Lovenox 40 mg subcutaneoulsy daily, which she has been educated on and self administering here in the hospital over the weekend, Home health to assist with this. She was also given Percocet 5/325 1-2 tabs by mouth every 4-6 hours PRN pain #30 tabs No refills. She has been using 2 tabs BID here in house. She is to return to the ED or clinic if concerns should arise. - General Info Date of Service: 01/22/18 Admission Dx/Problem (Free Text: Admission Diagnosis/Problem Admission Diagnosis/Problem Hip fracture, intertrochanteric Subjective Update: Feeling good today, up in room per self. Ready for discharge home. No concerns today. No chest pain or SOB. Functional Status: Reports: Pain Controlled, Tolerating Diet, Ambulating, Urinating - Review of Systems General: Reports: No Symptoms. Denies: Fever, Weakness, Fatigue HEENT: Reports: No Symptoms. Denies: Sore Throat, Rhinitis, Visual Changes Pulmonary: Reports: No Symptoms. Denies: Shortness of Breath Cardiovascular: Reports: No Symptoms. Denies: Chest Pain Gastrointestinal: Reports: No Symptoms. Denies: Abdominal Pain, Nausea, Vomiting Genitourinary: Reports: No Symptoms. Denies: Dysuria, Frequency, Burning Musculoskeletal: Reports: Joint Pain (L hip pain, improving. Tolerable with pain medications) Neurological: Reports: No Symptoms Psychiatric: Reports: No Symptoms - Patient Data Vitals - Most Recent: Last Vital Signs Temp 97.4 F 01/22/18 04:00 Pulse 69 01/22/18 04:00 Resp 18 01/22/18 04:00 BP 150/68 H 01/22/18 04:00 Pulse Ox 96 01/22/18 04:00 Weight - Most Recent: 63 kg I&O - Last 24 hours: Intake & Output 01/21/18 01/22/18 01/22/18 22:59 06:59 14:59 Intake Total 700 400 Output Total 1350 1400 Balance -650 -1000 Med Orders - Current: Current Medications Benzocaine/Menthol (Cepacol Sore Throat) 1 lozenge MUCMEM 6XDAY PRN PRN Reason: Sore Throat Bisacodyl (Dulcolax) 10 mg RECTAL DAILY PRN PRN Reason: Constipation Last Admin: 01/20/18 10:47 Dose: 10 mg Cyclobenzaprine HCl (Flexeril) 5 mg PO TID PRN PRN Reason: Muscle Spasm Docusate Sodium (Colace) 100 mg PO BID [facility] Last Admin: 01/22/18 08:38 Dose: 100 mg Enoxaparin Sodium (Lovenox) 40 mg SUBCUT Q24H [facility] Last Admin: 01/21/18 20:59 Dose: 40 mg Folic Acid (Folic Acid) 1 mg SUBCUT DAILY [facility] Last Admin: 01/22/18 08:38 Dose: 1 mg Hydromorphone HCl (Dilaudid) 0.5 - 1 mg IVPUSH Q3H PRN PRN Reason: Pain Levothyroxine Sodium (Synthroid) 100 mcg PO ACBREAKFAST [facility] Last Admin: 01/22/18 06:36 Dose: 100 mcg Lorazepam (Ativan) 0 mg IVPUSH Q4H PRN; Protocol PRN Reason: CIWAA Nicotine (Habitrol) 14 mg TRDERM DAILY [facility] Last Admin: 01/22/18 08:39 Dose: Not Given Ondansetron HCl (Zofran) 4 mg IVPUSH Q4H PRN PRN Reason: Nausea Oxycodone/Acetaminophen (Percocet 325-5 Mg) 1 - 2 tab PO Q4H PRN PRN Reason: Pain Last Admin: 01/21/18 23:09 Dose: 2 tab Paroxetine HCl (Paxil) 40 mg PO DAILY [facility] Last Admin: 01/21/18 08:57 Dose: 40 mg Polyethylene Glycol (Miralax) 17 gm PO BEDTIME PRN PRN Reason: Constipation Last Admin: 01/19/18 21:35 Dose: 17 gm Sodium Chloride (Saline Flush) 10 ml FLUSH ASDIRECTED PRN PRN Reason: Keep Vein Open Sodium Chloride (Saline Flush) 2.5 ml FLUSH ASDIRECTED PRN PRN Reason: Keep Vein Open Wound Care/Dressing Products (Duoderm Cgf) 1 each TOP Q6H PRN PRN Reason: blister Last Admin: 01/17/18 23:22 Dose: 1 each Discontinued Medications Albuterol (Proventil Hfa) Confirm Administered Dose 6.7 gm INH .STK-MED ONE Stop: 01/15/18 16:11 Albuterol/Ipratropium (Duoneb 3.0-0.5 Mg/3 Ml) 3 ml NEB ONETIME ONE Stop: 01/15/18 16:27 Last Admin: 01/15/18 18:27 Dose: 3 ml Ephedrine Sulfate (Ephedrine Sulfate) Confirm Administered Dose 50 mg .ROUTE .STK-MED ONE Stop: 01/15/18 16:09 Fentanyl (Sublimaze) Confirm Administered Dose 250 mcg .ROUTE .STK-MED ONE Stop: 01/15/18 15:20 Fentanyl (Sublimaze) Confirm Administered Dose 100 mcg .ROUTE .STK-MED ONE Stop: 01/15/18 16:49 Fentanyl (Sublimaze) 50 mcg IVPUSH Q5M PRN PRN Reason: Pain (severe 7-10) Stop: 01/16/18 18:22 Glycopyrrolate (Robinul) Confirm Administered Dose 0.4 mg .ROUTE .STK-MED ONE Stop: 01/15/18 16:36 Hydromorphone HCl (Dilaudid [employer] 6 Mg In Ns 30 Ml) 0 mg IV ASDIRECTED PRN; Protocol PRN Reason: Pain Last Admin: 01/15/18 18:32 Dose: 6 mg Cefazolin Sodium/Dextrose 1 gm (/ Premix) 50 mls @ 100 mls/hr IV Q8H ONE Stop: 01/15/18 12:29 Last Admin: 01/15/18 19:53 Dose: Not Given Lactated Ringer's (Ringers, Lactated) 1,000 mls @ 125 mls/hr IV ASDIRECTED [facility] Last Admin: 01/15/18 09:15 Dose: 125 mls/hr Lactated Ringer's (Ringers, Lactated) 1,000 mls @ 75 mls/hr IV ASDIRECTED [facility] Last Admin: 01/16/18 01:27 Dose: 75 mls/hr Cefazolin Sodium/Dextrose 1 gm (/ Premix) 50 mls @ 100 mls/hr IV Q8H [facility] Stop: 01/16/18 13:29 Last Admin: 01/16/18 12:51 Dose: 100 mls/hr Magnesium Sulfate 2 gm/ Premix 50 mls @ 50 mls/hr IV ONETIME ONE Stop: 01/16/18 08:33 Last Admin: 01/16/18 08:08 Dose: 50 mls/hr Magnesium Sulfate 2 gm/ Premix 50 mls @ 50 mls/hr IV ONETIME ONE Stop: 01/17/18 10:02 Last Admin: 01/17/18 09:52 Dose: 50 mls/hr Iopamidol (Isovue Multipack-370 (76%)) 75 ml IVPUSH ONETIME STA Stop: 01/15/18 14:51 Last Admin: 01/15/18 14:51 Dose: 75 ml Ipratropium [place] (Atrovent Hfa) Confirm Administered Dose 12.9 gm .ROUTE .STK -MED ONE Stop: 01/15/18 16:11 Levothyroxine Sodium (Synthroid) 100 mcg PO DAILY [facility] Last Admin: 01/16/18 12:57 Dose: Not Given Lidocaine (Xylocaine-Mpf 2%) Confirm Administered Dose 5 ml .ROUTE .STK-MED ONE Stop: 01/15/18 15:20 Midazolam HCl (Versed 1 Mg/Ml) Confirm Administered Dose 2 mg .ROUTE .STK-MED ONE Stop: 01/15/18 15:20 Morphine Sulfate (Morphine) 2 mg IVPUSH ONETIME ONE Stop: 01/15/18 04:26 Last Admin: 01/15/18 04:35 Dose: 2 mg Morphine Sulfate (Morphine) 2 mg IVPUSH ONETIME ONE Stop: 01/15/18 05:18 Last Admin: 01/15/18 05:27 Dose: 2 mg Morphine Sulfate (Morphine) 2 mg IVPUSH ONETIME ONE Stop: 01/15/18 06:24 Last Admin: 01/15/18 06:28 Dose: 2 mg Morphine Sulfate (Morphine) 2 mg IVPUSH ONETIME ONE Stop: 01/15/18 07:02 Last Admin: 01/15/18 07:31 Dose: 2 mg Morphine Sulfate (Morphine) 2 mg IVPUSH Q2H PRN PRN Reason: pain Last Admin: 01/15/18 13:05 Dose: 2 mg Neostigmine Methylsulfate (Neostigmine) Confirm Administered Dose 5 mg .ROUTE .STK-MED ONE Stop: 01/15/18 16:36 Ondansetron HCl (Zofran) 4 mg IVPUSH ONETIME ONE Stop: 01/15/18 04:26 Last Admin: 01/15/18 04:36 Dose: 4 mg Ondansetron HCl (Zofran) Confirm Administered Dose 4 mg .ROUTE .STK-MED ONE Stop: 01/15/18 15:20 Paroxetine HCl (Paxil) 20 mg PO DAILY [facility] Last Admin: 01/18/18 08:40 Dose: 20 mg Paroxetine HCl (Paxil) 20 mg PO ONETIME ONE Stop: 01/18/18 09:34 Last Admin: 01/18/18 10:52 Dose: 20 mg Potassium Chloride (Klor-Con M20) 40 meq PO ONETIME ONE Stop: 01/18/18 07:43 Last Admin: 01/18/18 08:40 Dose: 40 meq Propofol (Diprivan 20 Ml) Confirm Administered Dose 200 mg .ROUTE .STK-MED ONE Stop: 01/15/18 15:20 Rocuronium [place] (Zemuron) Confirm Administered Dose 100 mg .ROUTE .STK-MED ONE Stop: 01/15/18 15:20 Sodium Phosphate (Neutra-Phos) 250 mg PO QID [facility] Stop: 01/18/18 06:01 Last Admin: 01/18/18 06:31 Dose: 250 mg Succinylcholine Chloride (Quelicin) Confirm Administered Dose 200 mg .ROUTE .STK -MED ONE Stop: 01/15/18 15:20 Sugammadex Sodium (Bridion) Confirm Administered Dose 200 mg .ROUTE .STK-MED ONE Stop: 01/15/18 16:41 Thiamine HCl (Vitamin B-1) 100 mg IV DAILY [facility] Last Admin: 01/21/18 10:07 Dose: Not Given Tranexamic Acid (Cyklokapron) Confirm Administered Dose 2,000 mg .ROUTE .[facility] ONE Stop: 01/15/18 16:16 - Exam General: Reports: Alert, Oriented, Cooperative Neck: Reports: Supple Lungs: Reports: Clear to Auscultation, Normal Respiratory Effort Cardiovascular: Reports: Regular Rate, Regular Rhythm GI/Abdominal Exam: Normal Bowel Sounds, Soft, Non-Tender, No Organomegaly, No Distention, No Abnormal Bruit, No Mass, Pelvis Stable Back Exam: Reports: Normal Inspection, Full Range of Motion Skin: Reports: Warm, Dry Wound/Incisions: Reports: Healing Well, Dressing Dry and Intact Neurological: Reports: No New Focal Deficit Psy/Mental Status: Reports: Alert, Normal Affect, Normal Mood
[2018-01-22] MEDS: Acetaminophen/oxyCODONE 325-5 MG Tab PO PRN (13:23)
[2018-01-22] MEDS ORDERED: Enoxaparin 40 MG/0.4 ML Syringe SUBCUT SCH (14:15)
== END 2018-01-22 14:55 | disposition home health service (06) | DRG 470 ==
LOC: MW.ED 04:14 → MW.MS 07:42
PROVIDERS: ADMIT Internal Medicine; ATTEND Internal Medicine
PROC: 0SRS0JZ Replacement of Left Hip Joint, Femoral Surface with Synthetic Substitute, Open Approach (ICD-10-PCS; principal; 2018-01-15)
DX: S72.002A Fracture of unspecified part of neck of left femur, initial encounter for closed fracture (principal); W19.XXXA Unspecified fall, initial encounter; S72.092A Other fracture of head and neck of left femur, initial encounter for closed fracture; M97.02XA Periprosthetic fracture around internal prosthetic left hip joint, initial encounter; D62 Acute posthemorrhagic anemia; E03.9 Hypothyroidism, unspecified; W10.8XXA Fall (on) (from) other stairs and steps, initial encounter; Y92.019 Unspecified place in single-family (private) house as the place of occurrence of the external cause; I51.7 Cardiomegaly; F10.10 Alcohol abuse, uncomplicated; F17.210 Nicotine dependence, cigarettes, uncomplicated; F41.8 Other specified anxiety disorders; Z59.0 Homelessness; Z88.8 Allergy status to other drugs, medicaments and biological substances; Z79.899 Other long term (current) drug therapy
CPT/HCPCS: 36415; 71045; 73502; 80053; 82553; 83880; 84484; 85025; 85610; 96374; 96375; 96376; 99285; J2270 ×4; J2405; 36410; 51702; 71260; 71260-26; 72170; 72170-26; 73501-26-LT; 73501-LT; 80048; 81003; 82962; 83735; 84100; 86850; 86900; 86901; 88305; 88311; 93005; 93306; 94640; 94660; 97110-GP; 97116-GP; 97161-GP; 97530-GP; 99283; A9270-GY; C1776; J0330; J0690; J1170; J1650; J2250; J2704; J3010; J3411; J3475; J3490; J7120; Q9967